=== PATIENT | female | born 1935 | race Caucasian/White ===

== ENCOUNTER 2017-02-06 19:27 | Inpatient (IN) | payer MEDICARE, OTHER ==
[~2017-02-06] VITALS: Ht 154.9 cm; Wt 81.4 kg
[~2017-02-06 19:27] MED LIST: ASPI81TA52 PO; ATOR20TA66 PO; CHOL2000 PO; CLON-529 PO; CLOP75TA35 PO; DET2LAC PO; FERR1TAB9 PO; FLO44IN IH; HYDR12.522 PO; INSU100C4 SQ; LANTUS SQ; LISI-600 PO; LOP25T PO; ONDA4TAB6 PO; POTA20TA19 PO; POTA20TA84 PO; SUCR1ORA2 PO; TIOT18CA7 IH
[2017-02-06 20:23] LABS: BASOPHILS % (AUTO) 0.2 % (0-1); EOSINOPHILS # (AUTO) 0.3 X10'3 (0-0.9); EOSINOPHILS % (AUTO) 3.3 % (0-6); HEMATOCRIT 40.5 % (35.0-45.0); HEMOGLOBIN 13.4 g/dl (12.0-16.0); LYMPHOCYTES # (AUTO) 2.2 X10'3 (1.1-4.8); LYMPHOCYTES % (AUTO) 21.4 % (21-51); MEAN CORPUSCULAR HEMOGLOBIN 28.3 PG (27.0-31.0); MEAN CORPUSCULAR VOLUME 85.7 FL (78-98); MEAN PLATELET VOLUME 8.6 FL (7.4-10.4); MONOCYTES # (AUTO) 0.9 X10'3 (0-0.9); MONOCYTES % (AUTO) 8.4 % (2-12); NEUTROPHILS # (AUTO) 6.8 X10'3 (1.8-7.7); NEUTROPHILS % (AUTO) 66.7 % (42-75); PLATELET COUNT 248 X10'3 (140-440); RED BLOOD COUNT 4.73 X10'6 (4.20-5.60); RED CELL DISTRIBUTION WIDTH 14.4 % (11.5-14.5); WHITE BLOOD COUNT 10.2 X10'3 (4.5-11.0)
[2017-02-06 20:33] LABS: PROTHROMBIN TIME 10.6 SECONDS (9.0-12.0)
[2017-02-06 20:43] LABS: ALANINE AMINOTRANSFERASE 37 U/L (12-78); ALBUMIN 4.1 G/DL (3.4-5.0); ALBUMIN/GLOBULIN RATIO 0.9 (1.1-1.5); ALKALINE PHOSPHATASE 79 IU/L (46-116); AMYLASE 61 U/L (25-115); ANION GAP 9 (8-16); ASPARTATE AMINO TRANSFERASE 28 U/L (10-37); BILIRUBIN,TOTAL 0.5 MG/DL (0.1-1.0); BLOOD UREA NITROGEN 21 MG/DL (7-18); BUN/CREATININE RATIO 24.1 (6.6-38.0); CHLORIDE 103 MMOL/L (99-107); CREATININE 0.87 MG/DL (0.40-0.90); GLUCOSE 139 MG/DL (70-104); LIPASE 101 U/L (73-393); SODIUM 142 MMOL/L (135-145); TOTAL CARBON DIOXIDE 29.9 MMOL/L (24-32); TOTAL PROTEIN 8.6 G/DL (6.4-8.2); eGFR 62 ML/MIN
[2017-02-06] MEDS ORDERED: ondansetron/PF 4mg/2ml inj IV ONE (20:45)
[2017-02-06] MEDS ORDERED: normal saline 1000ML IV soln IVB ONE (20:45)
[2017-02-06] MEDS ORDERED: temazepam 15mg capsule PO PRN (21:00)
[2017-02-06 22:41] LABS: CLARITY,URINE Clear (Clear); COLOR,URINE Yellow (Yellow); GLUCOSE, URINE Negative (Neg); KETONES,URINE Negative (Neg); LEUKOCYTE ESTERASE ,URINE Negative (Neg); NITRITES, URINE Negative (Neg); OCCULT BLOOD,URINE Negative (Neg); PH,URINE 5.5 (4.8-8.0); PROTEIN,URINE Negative (Neg); UROBILINOGEN,URINE 0.2 E.U/dL (0.2-1.0)
[2017-02-06 22:42] LABS: UA COLLECTION TYPE CLN CATCH MIDSTREAM
[2017-02-06] MEDS ORDERED: diphenhydrAMINE 50 mg/ml inj IV PRN (23:15)
[2017-02-06] MEDS ORDERED: mag hydrox/Alum hydrox/simeth 30ml oral suspension PO PRN (23:15)
[2017-02-06] MEDS ORDERED: acetaminophen 325mg tablet PO PRN (23:15)
[2017-02-06] MEDS ORDERED: magnesium hydroxide 30ml (MOM) UD suspension PO PRN (23:15)
[2017-02-06] MEDS ORDERED: bisacodyl 10mg suppository rectal RC PRN (23:15)
[2017-02-06] MEDS ORDERED: acetaminophen 650mg rectal suppository RC PRN (23:15)
[2017-02-06] MEDS ORDERED: ondansetron/PF 4mg/2ml inj IV PRN (23:15)
[2017-02-06] MEDS ORDERED: metoclopramide 5 mg/ml inj IV PRN (23:15)
[2017-02-06] MEDS ORDERED: diphenhydrAMINE 25mg capsule PO PRN (23:15)
[2017-02-06] MEDS ORDERED: heparin 10,000 units/1 ML INJ IV ONE (23:15)
[2017-02-06] MEDS ORDERED: HYDROmorphone 1 mg/ml syringe IV PRN ×2 (23:15)
[2017-02-06 23:56] LABS: PARTIAL THROMBOPLASTIN TIME 29 SECONDS (22-32)
[2017-02-07] LABS: BASOPHILS % (AUTO) 0.3 % (0-1); EOSINOPHILS # (AUTO) 0.3 X10'3 (0-0.9); EOSINOPHILS % (AUTO) 3.6 % (0-6); HEMATOCRIT 38.6 % (35.0-45.0); HEMOGLOBIN 12.7 g/dl (12.0-16.0); LYMPHOCYTES # (AUTO) 1.3 X10'3 (1.1-4.8); LYMPHOCYTES % (AUTO) 13.9 % (21-51); MEAN CORPUSCULAR HEMOGLOBIN 28.1 PG (27.0-31.0); MEAN CORPUSCULAR HGB CONC 32.9 % (33.0-36.5); MEAN CORPUSCULAR VOLUME 85.6 FL (78-98); MEAN PLATELET VOLUME 8.6 FL (7.4-10.4); MONOCYTES # (AUTO) 0.9 X10'3 (0-0.9); MONOCYTES % (AUTO) 9.2 % (2-12); NEUTROPHILS # (AUTO) 6.9 X10'3 (1.8-7.7); PLATELET COUNT 227 X10'3 (140-440); RED BLOOD COUNT 4.51 X10'6 (4.20-5.60); RED CELL DISTRIBUTION WIDTH 14.1 % (11.5-14.5); WHITE BLOOD COUNT 9.5 X10'3 (4.5-11.0)
[2017-02-07 00:09] LABS: MAGNESIUM 1.8 MG/DL (1.5-2.4)
[2017-02-07] MEDS: pantoprazole 40 MG vial IV SCH ×2 (00:12→08:09)
[2017-02-07] MEDS: normal saline 1000ml 1,000 ML IV SCH ×4 (00:14→23:38)
[2017-02-07] MEDS: piperacillin/tazo 4.5gm/100ml 100 ML IV SCH ×2 (01:02→11:34)
[2017-02-07 01:30] VITALS: BP 164/70
[2017-02-07] MEDS: vancomycin/NS 1 GM ADD-VANTAGE 250 ML IV SCH ×2 (02:17→13:00)
[2017-02-07] MEDS ORDERED: MESSAGE TO PHARMACY PO ONE (02:45)
[2017-02-07] MEDS ORDERED: glucagon, human recombinant 1mg kit SUBCUT PRN (02:45)
[2017-02-07] MEDS ORDERED: dextrose ORAL solution 15 GM/59 ML bottle PO PRN ×2 (02:45)
[2017-02-07] MEDS ORDERED: insulin Lispro (HumaLOG) vial - multi-dose SQ SCH (02:45)
[2017-02-07] MEDS ORDERED: dextrose 50%-water 50ml dispensing syringe IV PRN ×2 (02:45)
[2017-02-07 06:08] LABS: BASOPHILS % (AUTO) 0.2 % (0-1); EOSINOPHILS # (AUTO) 0.3 X10'3 (0-0.9); EOSINOPHILS % (AUTO) 2.9 % (0-6); HEMOGLOBIN 12.6 g/dl (12.0-16.0); LYMPHOCYTES # (AUTO) 0.8 X10'3 (1.1-4.8); LYMPHOCYTES % (AUTO) 7.8 % (21-51); MEAN CORPUSCULAR HEMOGLOBIN 28.2 PG (27.0-31.0); MEAN CORPUSCULAR HGB CONC 32.3 % (33.0-36.5); MEAN CORPUSCULAR VOLUME 87.2 FL (78-98); MEAN PLATELET VOLUME 9.1 FL (7.4-10.4); MONOCYTES # (AUTO) 0.9 X10'3 (0-0.9); MONOCYTES % (AUTO) 8.8 % (2-12); NEUTROPHILS # (AUTO) 8.1 X10'3 (1.8-7.7); NEUTROPHILS % (AUTO) 80.3 % (42-75); PLATELET COUNT 210 X10'3 (140-440); RED BLOOD COUNT 4.47 X10'6 (4.20-5.60); RED CELL DISTRIBUTION WIDTH 14.2 % (11.5-14.5); WHITE BLOOD COUNT 10.1 X10'3 (4.5-11.0)
[2017-02-07 06:39] LABS: ANION GAP 9 (8-16); BLOOD UREA NITROGEN 14 MG/DL (7-18); CHLORIDE 106 MMOL/L (99-107); CREATININE 0.73 MG/DL (0.40-0.90); GLUCOSE 167 MG/DL (70-104); POTASSIUM 3.7 MMOL/L (3.5-5.1); SODIUM 143 MMOL/L (135-145)
[2017-02-07 06:40] LABS: ALANINE AMINOTRANSFERASE 34 U/L (12-78); ALBUMIN 3.3 G/DL (3.4-5.0); ALBUMIN/GLOBULIN RATIO 0.8 (1.1-1.5); ALKALINE PHOSPHATASE 68 IU/L (46-116); ASPARTATE AMINO TRANSFERASE 24 U/L (10-37); BILIRUBIN,TOTAL 0.7 MG/DL (0.1-1.0); BUN/CREATININE RATIO 19.2 (6.6-38.0); CALCIUM 8.9 MG/DL (8.5-10.1); TOTAL PROTEIN 7.2 G/DL (6.4-8.2); eGFR 77 ML/MIN
[2017-02-07 07:20] VITALS: BP 166/74
[2017-02-07] MEDS: docusate sod 100mg capsule PO SCH ×2 (08:00→21:17)
[2017-02-07] MEDS ORDERED: lisinopril 20mg tablet PO SCH (08:00)
[2017-02-07] MEDS: heparin 10,000 units/1 ML INJ IV PRN (08:15)
[2017-02-07] MEDS: metoprolol tartrate 25mg tablet PO SCH ×2 (10:11→21:16)
[2017-02-07] MEDS: oxybutynin 5mg tablet PO SCH ×4 (10:11→21:17)
[2017-02-07] MEDS: cloNIDine 0.1 mg tablet PO SCH ×2 (10:11→21:16)
[2017-02-07] MEDS: atorvastatin 20mg tablet PO SCH (10:11)
[2017-02-07] MEDS: HYDROcodone/acetaminophen 5mg/325mg tablet PO PRN (11:31)
[2017-02-07 11:45] VITALS: BP 166/80
[2017-02-07] MEDS: lactobacillus rhamnosus 10,000 MMU CELLS/CAPSULE PO SCH (16:59)
[2017-02-07 18:00] VITALS: BP 170/74
[2017-02-07] MEDS: diatr meglu/diatrizoate 30ml oral sol.-(3 dose) bottle PO SCH (21:17)
[2017-02-08] VITALS: BP 139/67
[2017-02-08 00:41] LABS: BASOPHILS % (AUTO) 0.3 % (0-1); EOSINOPHILS # (AUTO) 0.2 X10'3 (0-0.9); EOSINOPHILS % (AUTO) 2.5 % (0-6); HEMATOCRIT 36.8 % (35.0-45.0); HEMOGLOBIN 12.1 g/dl (12.0-16.0); LYMPHOCYTES # (AUTO) 0.9 X10'3 (1.1-4.8); LYMPHOCYTES % (AUTO) 10.9 % (21-51); MEAN CORPUSCULAR HEMOGLOBIN 28.4 PG (27.0-31.0); MEAN CORPUSCULAR HGB CONC 32.9 % (33.0-36.5); MEAN CORPUSCULAR VOLUME 86.2 FL (78-98); MEAN PLATELET VOLUME 8.7 FL (7.4-10.4); MONOCYTES # (AUTO) 0.6 X10'3 (0-0.9); MONOCYTES % (AUTO) 8.2 % (2-12); NEUTROPHILS # (AUTO) 6.2 X10'3 (1.8-7.7); NEUTROPHILS % (AUTO) 78.1 % (42-75); PLATELET COUNT 182 X10'3 (140-440); RED BLOOD COUNT 4.28 X10'6 (4.20-5.60); RED CELL DISTRIBUTION WIDTH 13.9 % (11.5-14.5); WHITE BLOOD COUNT 7.9 X10'3 (4.5-11.0)
[2017-02-08] MEDS: piperacillin/tazo 4.5gm/100ml 100 ML IV SCH ×2 (00:43→12:27)
[2017-02-08 00:57] LABS: ALANINE AMINOTRANSFERASE 24 U/L (12-78); ALBUMIN 2.9 G/DL (3.4-5.0); ALBUMIN/GLOBULIN RATIO 0.8 (1.1-1.5); ALKALINE PHOSPHATASE 57 IU/L (46-116); ANION GAP 8 (8-16); ASPARTATE AMINO TRANSFERASE 19 U/L (10-37); BILIRUBIN,TOTAL 0.5 MG/DL (0.1-1.0); BLOOD UREA NITROGEN 7 MG/DL (7-18); BUN/CREATININE RATIO 11.5 (6.6-38.0); CALCIUM 8.2 MG/DL (8.5-10.1); CHLORIDE 105 MMOL/L (99-107); CREATININE 0.61 MG/DL (0.40-0.90); GLUCOSE 139 MG/DL (70-104); POTASSIUM 3.1 MMOL/L (3.5-5.1); SODIUM 141 MMOL/L (135-145); TOTAL CARBON DIOXIDE 28.3 MMOL/L (24-32); TOTAL PROTEIN 6.7 G/DL (6.4-8.2); VANCOMYCIN,TROUGH 8.3 UG/ML (6.0-14.0); eGFR > 90 ML/MIN
[2017-02-08] MEDS: vancomycin/NS 1 GM ADD-VANTAGE 250 ML IV SCH ×2 (01:56→13:46)
[2017-02-08] MEDS ORDERED: potassium Cl 20 mEq SR tablet PO PRN (06:25)
[2017-02-08] MEDS ORDERED: potassium Cl 40MEQ/NS 500ml 500 ML IV PRN ×2 (06:25)
[2017-02-08 07:21] VITALS: BP 155/77
[2017-02-08] MEDS: lactobacillus rhamnosus 10,000 MMU CELLS/CAPSULE PO SCH ×2 (07:41→16:40)
[2017-02-08] MEDS: pantoprazole 40 MG vial IV SCH (07:41)
[2017-02-08] MEDS: metoprolol tartrate 25mg tablet PO SCH ×2 (07:41→20:33)
[2017-02-08] MEDS: atorvastatin 20mg tablet PO SCH (07:41)
[2017-02-08] MEDS: diatr meglu/diatrizoate 30ml oral sol.-(3 dose) bottle PO SCH ×2 (07:41→10:38)
[2017-02-08] MEDS: docusate sod 100mg capsule PO SCH ×2 (07:41→20:33)
[2017-02-08] MEDS: oxybutynin 5mg tablet PO SCH ×4 (07:41→20:33)
[2017-02-08] MEDS: cloNIDine 0.1 mg tablet PO SCH ×2 (07:41→20:33)
[2017-02-08] MEDS: lisinopril 10 MG tablet PO SCH (07:42)
[2017-02-08 11:50] VITALS: BP 153/84
[2017-02-08] MEDS ORDERED: VANCOMYCIN LEVEL IV ONE (12:30)
[2017-02-08] MEDS: HYDROcodone/acetaminophen 5mg/325mg tablet PO PRN (12:31)
[2017-02-08] MEDS: heparin 10,000 units/1 ML INJ IV PRN (14:35)
[2017-02-08] MEDS: normal saline 1000ml 1,000 ML IV SCH (14:36)
[2017-02-08 19:00] VITALS: BP 142/74
[2017-02-09] VITALS: BP 141/70
[2017-02-09] MEDS: vancomycin inj 1,250 MG in normal saline 250ml IV soln 250 ML IV SCH ×2 (01:12→14:17)
[2017-02-09] MEDS: normal saline 1000ml 1,000 ML IV SCH ×3 (01:15→20:00)
[2017-02-09 05:19] LABS: BASOPHILS % (AUTO) 0.2 % (0-1); EOSINOPHILS # (AUTO) 0.3 X10'3 (0-0.9); EOSINOPHILS % (AUTO) 3.9 % (0-6); HEMATOCRIT 35.9 % (35.0-45.0); HEMOGLOBIN 11.8 g/dl (12.0-16.0); LYMPHOCYTES # (AUTO) 1.2 X10'3 (1.1-4.8); LYMPHOCYTES % (AUTO) 14.5 % (21-51); MEAN CORPUSCULAR HEMOGLOBIN 28.3 PG (27.0-31.0); MEAN CORPUSCULAR HGB CONC 32.9 % (33.0-36.5); MEAN CORPUSCULAR VOLUME 86.2 FL (78-98); MEAN PLATELET VOLUME 8.4 FL (7.4-10.4); MONOCYTES # (AUTO) 0.8 X10'3 (0-0.9); MONOCYTES % (AUTO) 9.4 % (2-12); NEUTROPHILS # (AUTO) 5.7 X10'3 (1.8-7.7); PLATELET COUNT 170 X10'3 (140-440); RED BLOOD COUNT 4.17 X10'6 (4.20-5.60); RED CELL DISTRIBUTION WIDTH 13.7 % (11.5-14.5)
[2017-02-09 05:49] LABS: ALANINE AMINOTRANSFERASE 21 U/L (12-78); ALBUMIN 2.8 G/DL (3.4-5.0); ALBUMIN/GLOBULIN RATIO 0.7 (1.1-1.5); ALKALINE PHOSPHATASE 60 IU/L (46-116); ANION GAP 6 (8-16); ASPARTATE AMINO TRANSFERASE 17 U/L (10-37); BILIRUBIN,TOTAL 0.5 MG/DL (0.1-1.0); BLOOD UREA NITROGEN 6 MG/DL (7-18); BUN/CREATININE RATIO 8.5 (6.6-38.0); CALCIUM 8.4 MG/DL (8.5-10.1); CHLORIDE 105 MMOL/L (99-107); CREATININE 0.71 MG/DL (0.40-0.90); GLUCOSE 132 MG/DL (70-104); MAGNESIUM 1.4 MG/DL (1.5-2.4); POTASSIUM 3.5 MMOL/L (3.5-5.1); SODIUM 142 MMOL/L (135-145); TOTAL CARBON DIOXIDE 31.3 MMOL/L (24-32); TOTAL PROTEIN 6.8 G/DL (6.4-8.2); eGFR 79 ML/MIN
[2017-02-09 07:00] VITALS: BP 166/72
[2017-02-09] MEDS: lactobacillus rhamnosus 10,000 MMU CELLS/CAPSULE PO SCH ×2 (07:39→18:44)
[2017-02-09] MEDS: atorvastatin 20mg tablet PO SCH (07:40)
[2017-02-09] MEDS: cloNIDine 0.1 mg tablet PO SCH ×2 (07:40→20:03)
[2017-02-09] MEDS: docusate sod 100mg capsule PO SCH ×2 (07:40→20:03)
[2017-02-09] MEDS: metoprolol tartrate 25mg tablet PO SCH ×2 (07:40→20:03)
[2017-02-09] MEDS: pantoprazole 40 MG vial IV SCH (07:40)
[2017-02-09] MEDS: lisinopril 10 MG tablet PO SCH (07:41)
[2017-02-09] MEDS: oxybutynin 5mg tablet PO SCH ×4 (07:41→20:00)
[2017-02-09] MEDS: HYDROcodone/acetaminophen 10/325mg tab PO PRN ×3 (07:45→23:33)
[2017-02-09 11:00] VITALS: BP 154/80
[2017-02-09] MEDS: piperacillin/tazo 4.5gm/100ml 100 ML IV SCH ×3 (12:14→23:37)
[2017-02-09] MEDS: amLODIPine 5mg tablet PO SCH (14:17)
[2017-02-09] MEDS: heparin 10,000 units/1 ML INJ IV PRN (19:40)
[2017-02-09 20:00] VITALS: BP 166/75
[2017-02-10] VITALS: BP 161/81
[2017-02-10] MEDS: vancomycin inj 1,250 MG in normal saline 250ml IV soln 250 ML IV SCH (01:05)
[2017-02-10] MEDS: normal saline 1000ml 1,000 ML IV SCH (04:33)
[2017-02-10] MEDS: lactobacillus rhamnosus 10,000 MMU CELLS/CAPSULE PO SCH ×2 (07:04→16:54)
[2017-02-10] MEDS: pantoprazole 40 MG vial IV SCH (07:04)
[2017-02-10] MEDS: cloNIDine 0.1 mg tablet PO SCH ×2 (07:04→19:55)
[2017-02-10] MEDS: oxybutynin 5mg tablet PO SCH ×4 (07:05→19:42)
[2017-02-10] MEDS: docusate sod 100mg capsule PO SCH ×2 (07:05→19:55)
[2017-02-10] MEDS: amLODIPine 5mg tablet PO SCH (07:05)
[2017-02-10] MEDS: atorvastatin 20mg tablet PO SCH (07:05)
[2017-02-10] MEDS: metoprolol tartrate 25mg tablet PO SCH ×2 (07:05→19:55)
[2017-02-10] MEDS: lisinopril 10 MG tablet PO SCH (07:07)
[2017-02-10 07:57] VITALS: BP 178/87
[2017-02-10 08:09] LABS: ALANINE AMINOTRANSFERASE 27 U/L (12-78); ALBUMIN/GLOBULIN RATIO 0.7 (1.1-1.5); ALKALINE PHOSPHATASE 71 IU/L (46-116); ANION GAP 10 (8-16); ASPARTATE AMINO TRANSFERASE 22 U/L (10-37); BILIRUBIN,TOTAL 0.5 MG/DL (0.1-1.0); BLOOD UREA NITROGEN 4 MG/DL (7-18); BUN/CREATININE RATIO 5.9 (6.6-38.0); CALCIUM 8.9 MG/DL (8.5-10.1); CHLORIDE 104 MMOL/L (99-107); CREATININE 0.68 MG/DL (0.40-0.90); GLUCOSE 112 MG/DL (70-104); MAGNESIUM 1.5 MG/DL (1.5-2.4); POTASSIUM 3.1 MMOL/L (3.5-5.1); SODIUM 144 MMOL/L (135-145); TOTAL CARBON DIOXIDE 29.7 MMOL/L (24-32); TOTAL PROTEIN 7.5 G/DL (6.4-8.2); eGFR 83 ML/MIN
[2017-02-10 08:29] LABS: BASOPHILS % (AUTO) 0.4 % (0-1); EOSINOPHILS # (AUTO) 0.5 X10'3 (0-0.9); EOSINOPHILS % (AUTO) 6.6 % (0-6); HEMATOCRIT 37.6 % (35.0-45.0); HEMOGLOBIN 12.4 g/dl (12.0-16.0); LYMPHOCYTES % (AUTO) 14.9 % (21-51); MEAN CORPUSCULAR HEMOGLOBIN 28.5 PG (27.0-31.0); MEAN CORPUSCULAR HGB CONC 32.9 % (33.0-36.5); MEAN CORPUSCULAR VOLUME 86.8 FL (78-98); MEAN PLATELET VOLUME 9.6 FL (7.4-10.4); MONOCYTES # (AUTO) 0.7 X10'3 (0-0.9); MONOCYTES % (AUTO) 10.6 % (2-12); NEUTROPHILS # (AUTO) 4.7 X10'3 (1.8-7.7); NEUTROPHILS % (AUTO) 67.5 % (42-75); PLATELET COUNT 171 X10'3 (140-440); RED BLOOD COUNT 4.34 X10'6 (4.20-5.60); RED CELL DISTRIBUTION WIDTH 13.9 % (11.5-14.5)
[2017-02-10] MEDS: clopidogrel 75mg tablet PO SCH (08:59)
[2017-02-10] MEDS: aspirin 81mg tab.chew PO SCH (08:59)
[2017-02-10 11:12] VITALS: BP 155/68
[2017-02-10] MEDS ORDERED: VANCOMYCIN LEVEL IV ONE (12:30)
[2017-02-10] MEDS: potassium Cl 20 mEq SR tablet PO PRN ×2 (16:55→21:37)
[2017-02-10] MEDS: mineral oil/petrolatum, white cream 113gm jar TP SCH (19:55)
[2017-02-10 20:00] VITALS: BP 161/82
[2017-02-11] VITALS: BP 165/73
[2017-02-11] MEDS: potassium Cl 20 mEq SR tablet PO PRN (03:49)
[2017-02-11 05:30] LABS: BASOPHILS % (AUTO) 0.4 % (0-1); EOSINOPHILS # (AUTO) 0.2 X10'3 (0-0.9); EOSINOPHILS % (AUTO) 3.4 % (0-6); HEMATOCRIT 33.2 % (35.0-45.0); HEMOGLOBIN 10.8 g/dl (12.0-16.0); LYMPHOCYTES # (AUTO) 0.7 X10'3 (1.1-4.8); LYMPHOCYTES % (AUTO) 13.3 % (21-51); MEAN CORPUSCULAR HGB CONC 32.5 % (33.0-36.5); MEAN CORPUSCULAR VOLUME 86.2 FL (78-98); MONOCYTES # (AUTO) 0.7 X10'3 (0-0.9); MONOCYTES % (AUTO) 14.8 % (2-12); NEUTROPHILS # (AUTO) 3.4 X10'3 (1.8-7.7); NEUTROPHILS % (AUTO) 68.1 % (42-75); PLATELET COUNT 167 X10'3 (140-440); RED BLOOD COUNT 3.86 X10'6 (4.20-5.60); RED CELL DISTRIBUTION WIDTH 13.6 % (11.5-14.5); WHITE BLOOD COUNT 5.1 X10'3 (4.5-11.0)
[2017-02-11 05:57] LABS: ALANINE AMINOTRANSFERASE 27 U/L (12-78); ALBUMIN 2.6 G/DL (3.4-5.0); ALBUMIN/GLOBULIN RATIO 0.7 (1.1-1.5); ALKALINE PHOSPHATASE 62 IU/L (46-116); ANION GAP 8 (8-16); ASPARTATE AMINO TRANSFERASE 20 U/L (10-37); BILIRUBIN,TOTAL 0.3 MG/DL (0.1-1.0); BLOOD UREA NITROGEN 7 MG/DL (7-18); CALCIUM 8.7 MG/DL (8.5-10.1); CHLORIDE 108 MMOL/L (99-107); CREATININE 1.17 MG/DL (0.40-0.90); GLUCOSE 144 MG/DL (70-104); MAGNESIUM 1.4 MG/DL (1.5-2.4); POTASSIUM 3.4 MMOL/L (3.5-5.1); SODIUM 145 MMOL/L (135-145); TOTAL CARBON DIOXIDE 29.5 MMOL/L (24-32); TOTAL PROTEIN 6.5 G/DL (6.4-8.2); eGFR 44 ML/MIN
[2017-02-11 07:00] VITALS: BP 158/66
[2017-02-11] MEDS: docusate sod 100mg capsule PO SCH ×2 (08:00→20:00)
[2017-02-11] MEDS: atorvastatin 20mg tablet PO SCH (08:28)
[2017-02-11] MEDS: lisinopril 10 MG tablet PO SCH (08:28)
[2017-02-11] MEDS: pantoprazole 40 MG vial IV SCH (08:28)
[2017-02-11] MEDS: cloNIDine 0.1 mg tablet PO SCH ×2 (08:28→20:00)
[2017-02-11] MEDS: oxybutynin 5mg tablet PO SCH ×3 (08:28→21:37)
[2017-02-11] MEDS: aspirin 81mg tab.chew PO SCH (08:28)
[2017-02-11] MEDS: amLODIPine 5mg tablet PO SCH (08:28)
[2017-02-11] MEDS: clopidogrel 75mg tablet PO SCH (08:28)
[2017-02-11] MEDS: lactobacillus rhamnosus 10,000 MMU CELLS/CAPSULE PO SCH ×2 (08:28→17:35)
[2017-02-11] MEDS: metoprolol tartrate 25mg tablet PO SCH ×2 (08:28→20:00)
[2017-02-11 11:00] VITALS: BP 127/65
[2017-02-11] MEDS: ipratropium/albuterol 3ml nebule NEB PRN (12:07)
[2017-02-11] MEDS: LACTOSE-FREE FOOD 237ML (BOOST) PO SCH ×2 (13:00→18:00)
[2017-02-11] MEDS: mineral oil/petrolatum, white cream 113gm jar TP SCH ×2 (17:36→21:37)
[2017-02-11 20:00] VITALS: BP 119/70
[2017-02-12] VITALS: BP 152/71
[2017-02-12 06:00] VITALS: BP 164/83
[2017-02-12 06:24] LABS: MAGNESIUM 1.4 MG/DL (1.5-2.4); POTASSIUM 3.2 MMOL/L (3.5-5.1)
[2017-02-12] MEDS: lactobacillus rhamnosus 10,000 MMU CELLS/CAPSULE PO SCH (07:30)
[2017-02-12] MEDS: LACTOSE-FREE FOOD 237ML (BOOST) PO SCH ×2 (08:00→12:16)
[2017-02-12] MEDS: clopidogrel 75mg tablet PO SCH (08:51)
[2017-02-12] MEDS: pantoprazole 40 MG vial IV SCH (08:51)
[2017-02-12] MEDS: metoprolol tartrate 25mg tablet PO SCH (08:51)
[2017-02-12] MEDS: atorvastatin 20mg tablet PO SCH (08:51)
[2017-02-12] MEDS: aspirin 81mg tab.chew PO SCH (08:51)
[2017-02-12] MEDS: docusate sod 100mg capsule PO SCH (08:51)
[2017-02-12] MEDS: oxybutynin 5mg tablet PO SCH ×2 (08:52→13:20)
[2017-02-12] MEDS: lisinopril 10 MG tablet PO SCH (08:52)
[2017-02-12] MEDS: cloNIDine 0.1 mg tablet PO SCH (08:52)
[2017-02-12] MEDS: amLODIPine 5mg tablet PO SCH (08:52)
[2017-02-12] MEDS: mineral oil/petrolatum, white cream 113gm jar TP SCH (08:57)
[2017-02-12] MEDS: ipratropium/albuterol 3ml nebule NEB PRN (09:14)
[2017-02-12 11:00] VITALS: BP 131/67
== END 2017-02-12 16:34 | disposition home health service (06) | DRG 389 ==
LOC: ER 19:28 → ED HOLD 23:15 → SUR 3N 02-07 01:25
PROVIDERS: ADMIT Family Medicine; ATTEND Internal Medicine
PROC: BW211ZZ Computerized Tomography (CT Scan) of Abdomen and Pelvis using Low Osmolar Contrast (ICD-10-PCS; principal; 2017-02-08)
DX: K56.609 Unspecified intestinal obstruction, unspecified as to partial versus complete obstruction (principal); L03.116 Cellulitis of left lower limb; I48.91 Unspecified atrial fibrillation; E11.621 Type 2 diabetes mellitus with foot ulcer; L03.115 Cellulitis of right lower limb; N28.1 Cyst of kidney, acquired; F02.80 Dementia in other diseases classified elsewhere, unspecified severity, without behavioral disturbance, psychotic disturbance, mood disturbance, and anxiety; J44.9 Chronic obstructive pulmonary disease, unspecified; I10 Essential (primary) hypertension; G89.29 Other chronic pain; G30.9 Alzheimer's disease, unspecified; L97.529 Non-pressure chronic ulcer of other part of left foot with unspecified severity; E78.5 Hyperlipidemia, unspecified; M71.20 Synovial cyst of popliteal space [Baker], unspecified knee; M19.90 Unspecified osteoarthritis, unspecified site; G47.30 Sleep apnea, unspecified; K21.9 Gastro-esophageal reflux disease without esophagitis; Z93.3 Colostomy status; Z90.49 Acquired absence of other specified parts of digestive tract; Z90.710 Acquired absence of both cervix and uterus; Z88.2 Allergy status to sulfonamides; Z88.8 Allergy status to other drugs, medicaments and biological substances; Z79.899 Other long term (current) drug therapy; Z79.82 Long term (current) use of aspirin; Z79.4 Long term (current) use of insulin; Z85.038 Personal history of other malignant neoplasm of large intestine; Z86.14 Personal history of Methicillin resistant Staphylococcus aureus infection; Z86.73 Personal history of transient ischemic attack (TIA), and cerebral infarction without residual deficits; Z87.891 Personal history of nicotine dependence
CPT/HCPCS: 36415; 74176; 80053; 80202; 81003; 82150; 82948; 83036; 83690; 83735; 83880; 84132; 85025; 85610; 85730; 87070; 93005; 93971; 94640; 94760; 96361; 96374; 97116; 97161; 99285; A4421; C9113; J1644; J2270; J2405; J2543; J3370; J3480; J7030; Q9963

== ENCOUNTER 2017-02-25 12:36 | Emergency (ER) | payer MEDICARE, OTHER ==
[~2017-02-25] VITALS: Ht 154.9 cm; Wt 79.1 kg
[~2017-02-25 12:36] MED LIST changes: -POTA20TA19 PO
[2017-02-25] MEDS ORDERED: DOCU-28 PO (15:51)
[2017-02-25 16:06] VITALS: BP 156/76
== END 2017-02-25 16:08 | disposition home or self-care (01) ==
LOC: ER 12:39
DX: K59.00 Constipation, unspecified (principal); I10 Essential (primary) hypertension; J44.9 Chronic obstructive pulmonary disease, unspecified; K21.9 Gastro-esophageal reflux disease without esophagitis; E11.9 Type 2 diabetes mellitus without complications; G89.29 Other chronic pain; Z88.2 Allergy status to sulfonamides; Z88.1 Allergy status to other antibiotic agents; Z90.49 Acquired absence of other specified parts of digestive tract; Z90.710 Acquired absence of both cervix and uterus; Z88.8 Allergy status to other drugs, medicaments and biological substances
CPT/HCPCS: 74022; 74176; 99284

== ENCOUNTER 2017-04-30 06:56 | Emergency (ER) | payer MEDICARE, OTHER ==
[~2017-04-30] VITALS: Ht 154.9 cm; Wt 76.8 kg
[~2017-04-30 06:56] MED LIST changes: +DOCU-28 PO
[2017-04-30] MEDS ORDERED: albuterol 2.5 MG/3 ML nebule NEB ONE (07:05)
[2017-04-30 07:43] LABS: BASOPHILS % (AUTO) 0.3 % (0-1); EOSINOPHILS # (AUTO) 0.3 X10'3 (0-0.9); EOSINOPHILS % (AUTO) 7.6 % (0-6); HEMATOCRIT 32.8 % (35.0-45.0); HEMOGLOBIN 10.7 g/dl (12.0-16.0); LYMPHOCYTES # (AUTO) 1.2 X10'3 (1.1-4.8); LYMPHOCYTES % (AUTO) 25.4 % (21-51); MEAN CORPUSCULAR HEMOGLOBIN 26.4 PG (27.0-31.0); MEAN CORPUSCULAR HGB CONC 32.5 % (33.0-36.5); MEAN CORPUSCULAR VOLUME 81.2 FL (78-98); MEAN PLATELET VOLUME 7.9 FL (7.4-10.4); MONOCYTES # (AUTO) 0.3 X10'3 (0-0.9); MONOCYTES % (AUTO) 7.5 % (2-12); NEUTROPHILS # (AUTO) 2.7 X10'3 (1.8-7.7); NEUTROPHILS % (AUTO) 59.2 % (42-75); PLATELET COUNT 216 X10'3 (140-440); RED BLOOD COUNT 4.04 X10'6 (4.20-5.60); RED CELL DISTRIBUTION WIDTH 15.4 % (11.5-14.5); WHITE BLOOD COUNT 4.6 X10'3 (4.5-11.0)
[2017-04-30 07:44] LABS: PARTIAL THROMBOPLASTIN TIME 28 SECONDS (22-32); PROTHROMBIN TIME 10.3 SECONDS (9.0-12.0)
[2017-04-30 07:56] LABS: ALANINE AMINOTRANSFERASE 33 U/L (12-78); ALBUMIN 3.6 G/DL (3.4-5.0); ALBUMIN/GLOBULIN RATIO 0.9 (1.1-1.5); ALKALINE PHOSPHATASE 87 IU/L (46-116); ANION GAP 10 (8-16); ASPARTATE AMINO TRANSFERASE 21 U/L (10-37); BILIRUBIN,TOTAL 0.4 MG/DL (0.1-1.0); BLOOD UREA NITROGEN 19 MG/DL (7-18); BUN/CREATININE RATIO 26.4 (6.6-38.0); CALCIUM 8.9 MG/DL (8.5-10.1); CHLORIDE 106 MMOL/L (99-107); CREATININE 0.72 MG/DL (0.40-0.90); GLUCOSE 145 MG/DL (70-104); POTASSIUM 3.5 MMOL/L (3.5-5.1); SODIUM 144 MMOL/L (135-145); TOTAL PROTEIN 7.8 G/DL (6.4-8.2); eGFR 78 ML/MIN
[2017-04-30] MEDS ORDERED: levoFLOXACIN-Levaquin 500mg/D5 100 ML IV ONE (08:30)
[2017-04-30] MEDS ORDERED: methylPREDNISolone sod succ 125mg/2ml vial IV ONE (10:35)
[2017-04-30] MEDS ORDERED: levoFLOXACIN 250mg tablet PO ONE (10:35)
[2017-04-30] MEDS ORDERED: albuterol 2.5 MG/3 ML nebule ONE (10:59)
[2017-04-30] MEDS ORDERED: PRED20TA PO (11:07)
[2017-04-30] MEDS ORDERED: ALB0.5UD IH (11:07)
[2017-04-30] MEDS ORDERED: LEVO500T2 PO (11:07)
[2017-04-30 11:43] VITALS: BP 118/68
== END 2017-04-30 11:45 | disposition home or self-care (01) ==
LOC: ER 06:57
DX: J44.1 Chronic obstructive pulmonary disease with (acute) exacerbation (principal); R06.03 Acute respiratory distress; I10 Essential (primary) hypertension; K21.9 Gastro-esophageal reflux disease without esophagitis; E11.9 Type 2 diabetes mellitus without complications; M19.90 Unspecified osteoarthritis, unspecified site; G89.29 Other chronic pain; Z90.49 Acquired absence of other specified parts of digestive tract; Z90.710 Acquired absence of both cervix and uterus; Z98.890 Other specified postprocedural states; Z86.73 Personal history of transient ischemic attack (TIA), and cerebral infarction without residual deficits; Z85.038 Personal history of other malignant neoplasm of large intestine; Z88.2 Allergy status to sulfonamides; Z88.6 Allergy status to analgesic agent; Z88.8 Allergy status to other drugs, medicaments and biological substances; Z79.899 Other long term (current) drug therapy; Z79.4 Long term (current) use of insulin
CPT/HCPCS: 36415; 71045; 80053; 83880; 84484; 85025; 85610; 85730; 93005; 94640; 94760; 96365; 96375; 99285; J1956; J2930

== ENCOUNTER 2017-07-26 17:21 | Inpatient (IN) | payer MEDICARE, OTHER ==
[~2017-07-26] VITALS: Ht 154.9 cm; Wt 86.0 kg
[2017-07-26] MEDS ORDERED: ipratropium/albuterol 3ml nebule NEB ONE (17:30)
[2017-07-26] MEDS ORDERED: levoFLOXACIN-Levaquin 750MG/D5 150 ML IV ONE (17:30)
[2017-07-26] MEDS ORDERED: methylPREDNISolone sod succ 125mg/2ml vial IV ONE (17:30)
[2017-07-26 17:51] LABS: CLARITY,URINE CLEAR (Clear); COLOR,URINE YELLOW (Yellow); GLUCOSE, URINE NEGATIVE (Neg); KETONES,URINE NEGATIVE (Neg); LEUKOCYTE ESTERASE ,URINE SMALL (Neg); NITRITES, URINE NEGATIVE (Neg); OCCULT BLOOD,URINE NEGATIVE (Neg); PROTEIN,URINE NEGATIVE (Neg); UROBILINOGEN,URINE 0.2 E.U/dL (0.2-1.0)
[2017-07-26] MEDS: magnesium/D5W IVPB 100 ML IV SCH ×2 (17:52→19:00)
[2017-07-26 17:57] LABS: UA COLLECTION TYPE CLN CATCH MIDSTREAM
[2017-07-26 17:58] LABS: BACTERIA,URINE NONE SEEN /HPF (Neg); MUCUS STRANDS FEW /LPF (Neg); RBC,URINE NONE SEEN /HPF (0-2); SQUAMOUS EPITHELIAL CELL,UR MODERATE /LPF (FEW); WBC,URINE 0-4 /HPF (0-4)
[2017-07-26 18:11] LABS: BASOPHILS % (AUTO) 0.4 % (0-1); EOSINOPHILS # (AUTO) 0.2 X10'3 (0-0.9); EOSINOPHILS % (AUTO) 3.6 % (0-6); HEMATOCRIT 35.7 % (35.0-45.0); HEMOGLOBIN 11.5 g/dl (12.0-16.0); LYMPHOCYTES # (AUTO) 2.2 X10'3 (1.1-4.8); LYMPHOCYTES % (AUTO) 32.1 % (21-51); MEAN CORPUSCULAR HEMOGLOBIN 24.2 PG (27.0-31.0); MEAN CORPUSCULAR HGB CONC 32.3 % (33.0-36.5); MEAN CORPUSCULAR VOLUME 75.1 FL (78-98); MEAN PLATELET VOLUME 8.2 FL (7.4-10.4); MONOCYTES # (AUTO) 0.6 X10'3 (0-0.9); MONOCYTES % (AUTO) 8.3 % (2-12); NEUTROPHILS # (AUTO) 3.8 X10'3 (1.8-7.7); NEUTROPHILS % (AUTO) 55.6 % (42-75); PLATELET COUNT 249 X10'3 (140-440); RED BLOOD COUNT 4.75 X10'6 (4.20-5.60); RED CELL DISTRIBUTION WIDTH 17.7 % (11.5-14.5); WHITE BLOOD COUNT 6.9 X10'3 (4.5-11.0)
[2017-07-26 18:23] LABS: PARTIAL THROMBOPLASTIN TIME 27 SECONDS (22-32); PROTHROMBIN TIME 10.4 SECONDS (9.0-12.0)
[2017-07-26 18:31] LABS: ALANINE AMINOTRANSFERASE 37 U/L (12-78); ALBUMIN 3.9 G/DL (3.4-5.0); ALBUMIN/GLOBULIN RATIO 0.9 (1.1-1.5); ALKALINE PHOSPHATASE 94 IU/L (46-116); ANION GAP 10 (8-16); ASPARTATE AMINO TRANSFERASE 30 U/L (10-37); BILIRUBIN,TOTAL 0.3 MG/DL (0.1-1.0); BLOOD UREA NITROGEN 22 MG/DL (7-18); BUN/CREATININE RATIO 24.4 (6.6-38.0); CALCIUM 9.6 MG/DL (8.5-10.1); CHLORIDE 100 MMOL/L (99-107); GLUCOSE 189 MG/DL (70-104); POTASSIUM 3.1 MMOL/L (3.5-5.1); SODIUM 143 MMOL/L (135-145); TOTAL CARBON DIOXIDE 33.1 MMOL/L (24-32); TOTAL PROTEIN 8.4 G/DL (6.4-8.2); eGFR 60 ML/MIN
[2017-07-26 18:34] LABS: MAGNESIUM 1.7 MG/DL (1.5-2.4); TROPONIN I < 0.04 NG/ML (0.0-0.05)
[2017-07-26] MEDS ORDERED: glycopyrrolate 0.2mg/ml inj IV ONE (18:50)
[2017-07-26 19:21] LABS: ABG BASE EXCESS 6.3 mmol/L (-2.0-3.0); ABG OXYGEN SATURATION 93.2 % (95-98); ABG PCO2 (T) 39.6 mmHg (32.0-45.0); ABG PH (T) 7.497 (7.350-7.450); ABG PO2 (T) 64.7 mmHg (83-108); FCOHb 0.9 % (0.5-1.5); FLOW 2 L/min; FMetHb 0.3 % (0.3-1.12); FO2Hb 92.1 % (94-100); PATIENT TEMPERATURE 36.8; TOTAL HEMOGLOBIN 11.8 G/dl (12.0-16.0)
[2017-07-26] MEDS ORDERED: normal saline 1000ML IV soln IVB ONE (19:25)
[2017-07-26] MEDS ORDERED: magnesium hydroxide 30ml (MOM) UD suspension PO PRN (20:05)
[2017-07-26] MEDS ORDERED: ondansetron/PF 4mg/2ml inj IV PRN (20:05)
[2017-07-26] MEDS ORDERED: mag hydrox/Alum hydrox/simeth 30ml oral suspension PO PRN (20:05)
[2017-07-26] MEDS ORDERED: MESSAGE TO PHARMACY PO ONE (20:15)
[2017-07-26] MEDS ORDERED: albuterol 2.5 MG/3 ML nebule NEB PRN (20:15)
[2017-07-26] MEDS ORDERED: dextrose ORAL solution 15 GM/59 ML bottle PO PRN ×2 (20:15)
[2017-07-26] MEDS ORDERED: dextrose 50%-water 50ml dispensing syringe IV PRN ×2 (20:15)
[2017-07-26] MEDS ORDERED: glucagon, human recombinant 1mg kit SUBCUT PRN (20:15)
[2017-07-26] MEDS ORDERED: INSU100V9 SQ (20:22)
[2017-07-26 20:46] LABS: HEMOGLOBIN A1C 7.4 % (4.5-6.2)
[2017-07-26] MEDS ORDERED: ipratropium 0.5 MG/2.5ML nebule IH SCH (21:00)
[2017-07-26] MEDS: sucralfate 1gm/10ml UD suspension PO SCH (21:00)
[2017-07-26 21:15] VITALS: BP 174/75
[2017-07-26] MEDS ORDERED: ipratropium/albuterol 3ml nebule NEB PRN (21:45)
[2017-07-26] MEDS: acetaminophen 325mg tablet PO PRN (21:52)
[2017-07-26] MEDS ORDERED: cloNIDine 0.1 mg tablet PO ONE (22:05)
[2017-07-26] MEDS: potassium Cl 20mEq in NS 1,000 ML IV SCH (22:39)
[2017-07-26] MEDS ORDERED: insulin regular, human vial - multi-dose ONE (23:09)
[2017-07-26] MEDS ORDERED: insulin glargine (Lantus) pen - multi-dose SQ ONE (23:09)
[2017-07-26] MEDS: insulin Lispro (HumaLOG) vial - multi-dose SQ ONE (23:32)
[2017-07-26] MEDS: insulin glargine (Lantus) pen - multi-dose SQ SCH (23:34)
[2017-07-26] MEDS: insulin Lispro (HumaLOG) vial - multi-dose SQ SCH (23:58)
[2017-07-27] MEDS: insulin Lispro (HumaLOG) vial - multi-dose SQ ONE (00:01)
[2017-07-27] MEDS: methylPREDNISolone sod succ/PF 40mg inj. IV SCH ×4 (00:08→23:27)
[2017-07-27] MEDS: potassium Cl 20 mEq SR tablet PO SCH ×2 (00:08→09:07)
[2017-07-27 03:41] LABS: BASOPHILS % (AUTO) 0 % (0-1); EOSINOPHILS % (AUTO) 0 % (0-6); HEMATOCRIT 33.7 % (35.0-45.0); HEMOGLOBIN 10.7 g/dl (12.0-16.0); LYMPHOCYTES # (AUTO) 0.3 X10'3 (1.1-4.8); LYMPHOCYTES % (AUTO) 9.7 % (21-51); MEAN CORPUSCULAR HGB CONC 31.8 % (33.0-36.5); MEAN CORPUSCULAR VOLUME 75.4 FL (78-98); MEAN PLATELET VOLUME 8.8 FL (7.4-10.4); NEUTROPHILS # (AUTO) 2.9 X10'3 (1.8-7.7); NEUTROPHILS % (AUTO) 89.3 % (42-75); PLATELET COUNT 212 X10'3 (140-440); RED BLOOD COUNT 4.47 X10'6 (4.20-5.60); RED CELL DISTRIBUTION WIDTH 17.4 % (11.5-14.5); WHITE BLOOD COUNT 3.3 X10'3 (4.5-11.0)
[2017-07-27 03:43] VITALS: BP 158/67
[2017-07-27 04:09] LABS: ALANINE AMINOTRANSFERASE 29 U/L (12-78); ALBUMIN 3.2 G/DL (3.4-5.0); ALBUMIN/GLOBULIN RATIO 0.8 (1.1-1.5); ALKALINE PHOSPHATASE 72 IU/L (46-116); ANION GAP 8 (8-16); ASPARTATE AMINO TRANSFERASE 22 U/L (10-37); BILIRUBIN,TOTAL 0.3 MG/DL (0.1-1.0); BLOOD UREA NITROGEN 16 MG/DL (7-18); BUN/CREATININE RATIO 20.8 (6.6-38.0); CALCIUM 8.6 MG/DL (8.5-10.1); CHLORIDE 102 MMOL/L (99-107); CREATININE 0.77 MG/DL (0.40-0.90); GLUCOSE 275 MG/DL (70-104); SODIUM 142 MMOL/L (135-145); TOTAL CARBON DIOXIDE 32.1 MMOL/L (24-32); TOTAL PROTEIN 7.4 G/DL (6.4-8.2); eGFR 72 ML/MIN
[2017-07-27] MEDS ORDERED: potassium chloride 10mEq CAPSULE.SA PO ONE (04:20)
[2017-07-27] MEDS ORDERED: potassium Cl 20 mEq SR tablet PO STA (04:38)
[2017-07-27] MEDS: ipratropium/albuterol 3ml nebule NEB SCH ×4 (06:28→18:45)
[2017-07-27] MEDS ORDERED: magnesium 4gm in 100ml NS 100 ML IV PRN (07:20)
[2017-07-27] MEDS ORDERED: potassium Cl 40MEQ/NS 500ml 500 ML IV PRN ×2 (07:20)
[2017-07-27] MEDS ORDERED: potassium Cl 20 mEq SR tablet PO PRN ×2 (07:20)
[2017-07-27] MEDS ORDERED: magnesium/D5W IVPB 100 ML IV PRN (07:20)
[2017-07-27 07:45] VITALS: BP 104/62
[2017-07-27] MEDS: BUDESONIDE 0.25 MG/2 ML AMPUL.NEB IH SCH ×2 (08:00→18:45)
[2017-07-27] MEDS ORDERED: potassium Cl 20 mEq SR tablet PO SCH (08:00)
[2017-07-27] MEDS: sucralfate 1gm/10ml UD suspension PO SCH ×4 (09:07→20:56)
[2017-07-27] MEDS: cloNIDine 0.1 mg tablet PO SCH ×2 (09:07→19:09)
[2017-07-27] MEDS: metoprolol tartrate 25mg tablet PO SCH ×2 (09:08→19:09)
[2017-07-27] MEDS: heparin, porcine 5000 units/ml vial SQ SCH ×2 (09:08→19:11)
[2017-07-27] MEDS: clopidogrel 75mg tablet PO SCH (09:08)
[2017-07-27] MEDS: insulin Lispro (HumaLOG) vial - multi-dose SQ SCH ×3 (09:22→19:08)
[2017-07-27] MEDS: potassium Cl 20mEq in NS 1,000 ML IV SCH ×2 (12:45→15:14)
[2017-07-27 19:00] VITALS: BP 170/65
[2017-07-27] MEDS: acetaminophen 325mg tablet PO PRN (19:05)
[2017-07-27] MEDS: docusate sod 100mg capsule PO SCH (19:24)
[2017-07-27] MEDS: insulin glargine (Lantus) pen - multi-dose SQ SCH (21:01)
[2017-07-27 23:30] VITALS: BP 156/60
[2017-07-28] MEDS: acetaminophen 325mg tablet PO PRN ×2 (01:40→16:11)
[2017-07-28 05:01] LABS: BASOPHILS % (AUTO) 0 % (0-1); EOSINOPHILS # (AUTO) 0.1 X10'3 (0-0.9); HEMATOCRIT 34.6 % (35.0-45.0); HEMOGLOBIN 11.1 g/dl (12.0-16.0); LYMPHOCYTES # (AUTO) 0.6 X10'3 (1.1-4.8); LYMPHOCYTES % (AUTO) 6.1 % (21-51); MEAN CORPUSCULAR HEMOGLOBIN 24.3 PG (27.0-31.0); MEAN CORPUSCULAR VOLUME 75.8 FL (78-98); MEAN PLATELET VOLUME 8.9 FL (7.4-10.4); MONOCYTES # (AUTO) 0.2 X10'3 (0-0.9); MONOCYTES % (AUTO) 2.1 % (2-12); NEUTROPHILS # (AUTO) 9.4 X10'3 (1.8-7.7); NEUTROPHILS % (AUTO) 90.8 % (42-75); PLATELET COUNT 232 X10'3 (140-440); RED BLOOD COUNT 4.56 X10'6 (4.20-5.60); RED CELL DISTRIBUTION WIDTH 17.9 % (11.5-14.5); WHITE BLOOD COUNT 10.3 X10'3 (4.5-11.0)
[2017-07-28 05:27] LABS: ALANINE AMINOTRANSFERASE 29 U/L (12-78); ALBUMIN 3.3 G/DL (3.4-5.0); ALBUMIN/GLOBULIN RATIO 0.8 (1.1-1.5); ALKALINE PHOSPHATASE 70 IU/L (46-116); ANION GAP 6 (8-16); ASPARTATE AMINO TRANSFERASE 22 U/L (10-37); BILIRUBIN,TOTAL 0.4 MG/DL (0.1-1.0); BLOOD UREA NITROGEN 17 MG/DL (7-18); BUN/CREATININE RATIO 22.7 (6.6-38.0); CALCIUM 8.9 MG/DL (8.5-10.1); CHLORIDE 103 MMOL/L (99-107); CREATININE 0.75 MG/DL (0.40-0.90); GLUCOSE 217 MG/DL (70-104); MAGNESIUM 1.8 MG/DL (1.5-2.4); POTASSIUM 4.3 MMOL/L (3.5-5.1); SODIUM 138 MMOL/L (135-145); TOTAL CARBON DIOXIDE 29.5 MMOL/L (24-32); TOTAL PROTEIN 7.5 G/DL (6.4-8.2); eGFR 74 ML/MIN
[2017-07-28] MEDS: ipratropium/albuterol 3ml nebule NEB SCH ×3 (07:25→19:11)
[2017-07-28] MEDS: BUDESONIDE 0.25 MG/2 ML AMPUL.NEB IH SCH ×2 (07:26→19:10)
[2017-07-28 07:32] VITALS: BP 177/78
[2017-07-28] MEDS: sucralfate 1gm/10ml UD suspension PO SCH ×4 (08:39→20:58)
[2017-07-28] MEDS: clopidogrel 75mg tablet PO SCH (08:40)
[2017-07-28] MEDS: docusate sod 100mg capsule PO SCH ×2 (08:40→20:41)
[2017-07-28] MEDS: cloNIDine 0.1 mg tablet PO SCH ×2 (08:40→20:42)
[2017-07-28] MEDS: metoprolol tartrate 25mg tablet PO SCH ×2 (08:40→20:41)
[2017-07-28] MEDS: methylPREDNISolone sod succ/PF 40mg inj. IV SCH ×3 (08:41→23:20)
[2017-07-28] MEDS: heparin, porcine 5000 units/ml vial SQ SCH ×2 (08:41→20:41)
[2017-07-28] MEDS: insulin Lispro (HumaLOG) vial - multi-dose SQ SCH ×2 (08:46→13:17)
[2017-07-28] MEDS: potassium Cl 20mEq in NS 1,000 ML IV SCH (08:48)
[2017-07-28] MEDS ORDERED: pneumococcal 23-VAL P-sac vacc 25 mcg/0.5ml vial IMVAC ONE (10:00)
[2017-07-28 11:50] VITALS: BP 170/74
[2017-07-28 20:00] VITALS: BP 123/96
[2017-07-28] MEDS: insulin glargine (Lantus) pen - multi-dose SQ SCH (20:47)
[2017-07-28] MEDS: hydrALAZINE 20mg/ml inj. IV PRN (23:20)
[2017-07-29] VITALS: BP 169/67
[2017-07-29 00:45] VITALS: BP 144/62
[2017-07-29] MEDS: potassium Cl 20mEq in NS 1,000 ML IV SCH (00:56)
[2017-07-29 05:38] LABS: BASOPHILS % (AUTO) 0 % (0-1); EOSINOPHILS % (AUTO) 0 % (0-6); HEMATOCRIT 35.8 % (35.0-45.0); HEMOGLOBIN 11.3 g/dl (12.0-16.0); LYMPHOCYTES # (AUTO) 0.5 X10'3 (1.1-4.8); LYMPHOCYTES % (AUTO) 4.8 % (21-51); MEAN CORPUSCULAR HEMOGLOBIN 23.9 PG (27.0-31.0); MEAN CORPUSCULAR HGB CONC 31.5 % (33.0-36.5); MEAN CORPUSCULAR VOLUME 75.9 FL (78-98); MEAN PLATELET VOLUME 8.9 FL (7.4-10.4); MONOCYTES # (AUTO) 0.2 X10'3 (0-0.9); NEUTROPHILS # (AUTO) 9.5 X10'3 (1.8-7.7); NEUTROPHILS % (AUTO) 93.2 % (42-75); PLATELET COUNT 239 X10'3 (140-440); RED BLOOD COUNT 4.72 X10'6 (4.20-5.60); RED CELL DISTRIBUTION WIDTH 17.9 % (11.5-14.5); WHITE BLOOD COUNT 10.2 X10'3 (4.5-11.0)
[2017-07-29 06:13] LABS: ALANINE AMINOTRANSFERASE 76 U/L (12-78); ALBUMIN 3.3 G/DL (3.4-5.0); ALBUMIN/GLOBULIN RATIO 0.8 (1.1-1.5); ALKALINE PHOSPHATASE 72 IU/L (46-116); ANION GAP 6 (8-16); ASPARTATE AMINO TRANSFERASE 45 U/L (10-37); BILIRUBIN,TOTAL 0.4 MG/DL (0.1-1.0); BLOOD UREA NITROGEN 18 MG/DL (7-18); BUN/CREATININE RATIO 23.7 (6.6-38.0); CALCIUM 9.5 MG/DL (8.5-10.1); CHLORIDE 102 MMOL/L (99-107); CREATININE 0.76 MG/DL (0.40-0.90); GLUCOSE 201 MG/DL (70-104); MAGNESIUM 1.9 MG/DL (1.5-2.4); POTASSIUM 4.4 MMOL/L (3.5-5.1); SODIUM 137 MMOL/L (135-145); TOTAL CARBON DIOXIDE 28.8 MMOL/L (24-32); TOTAL PROTEIN 7.6 G/DL (6.4-8.2); eGFR 73 ML/MIN
[2017-07-29] MEDS: ipratropium/albuterol 3ml nebule NEB SCH ×2 (07:09→11:07)
[2017-07-29] MEDS: BUDESONIDE 0.25 MG/2 ML AMPUL.NEB IH SCH (07:09)
[2017-07-29 08:07] VITALS: BP 174/75
[2017-07-29] MEDS: methylPREDNISolone sod succ/PF 40mg inj. IV SCH (08:14)
[2017-07-29] MEDS: heparin, porcine 5000 units/ml vial SQ SCH (08:15)
[2017-07-29] MEDS: docusate sod 100mg capsule PO SCH (08:15)
[2017-07-29] MEDS: cloNIDine 0.1 mg tablet PO SCH (08:15)
[2017-07-29] MEDS: clopidogrel 75mg tablet PO SCH (08:15)
[2017-07-29] MEDS: sucralfate 1gm/10ml UD suspension PO SCH ×2 (08:15→11:45)
[2017-07-29] MEDS: metoprolol tartrate 25mg tablet PO SCH (08:19)
[2017-07-29] MEDS: insulin Lispro (HumaLOG) vial - multi-dose SQ SCH ×2 (10:12→13:00)
[2017-07-29 11:37] VITALS: BP 173/67
[2017-07-29] MEDS: hydrALAZINE 20mg/ml inj. IV PRN (11:45)
== END 2017-07-29 16:17 | DRG 193 ==
LOC: ER 17:21 → ED HOLD 20:05 → SUR 3N 21:12
PROVIDERS: ADMIT Internal Medicine; ATTEND Family Medicine
DX: J18.9 Pneumonia, unspecified organism (principal); J96.20 Acute and chronic respiratory failure, unspecified whether with hypoxia or hypercapnia; J44.1 Chronic obstructive pulmonary disease with (acute) exacerbation; J44.0 Chronic obstructive pulmonary disease with (acute) lower respiratory infection; I48.91 Unspecified atrial fibrillation; I10 Essential (primary) hypertension; E11.9 Type 2 diabetes mellitus without complications; G47.30 Sleep apnea, unspecified; G89.29 Other chronic pain; M19.90 Unspecified osteoarthritis, unspecified site; I25.10 Atherosclerotic heart disease of native coronary artery without angina pectoris; K21.9 Gastro-esophageal reflux disease without esophagitis; Z93.3 Colostomy status; Z99.81 Dependence on supplemental oxygen; Z90.49 Acquired absence of other specified parts of digestive tract; Z90.710 Acquired absence of both cervix and uterus; Z88.2 Allergy status to sulfonamides; Z88.8 Allergy status to other drugs, medicaments and biological substances; Z79.899 Other long term (current) drug therapy; Z79.4 Long term (current) use of insulin; Z79.02 Long term (current) use of antithrombotics/antiplatelets; Z86.14 Personal history of Methicillin resistant Staphylococcus aureus infection; Z85.038 Personal history of other malignant neoplasm of large intestine; Z86.73 Personal history of transient ischemic attack (TIA), and cerebral infarction without residual deficits; Z87.891 Personal history of nicotine dependence
CPT/HCPCS: 36415; 36600; 71045; 80053; 81001; 82803; 82948; 83036; 83605; 83735; 83880; 84132; 84145; 84484; 85018; 85025; 85610; 85730; 87040; 87070; 87088; 93005; 94640; 94667; 94668; 94760; 96365; 96375; 97116; 97162; 97530; 99285; A6212; J0360; J1644; J1815; J1956; J2920; J2930; J3490; J7030

== ENCOUNTER 2017-09-10 10:17 | Outpatient (CLI) | payer MEDICARE, OTHER ==
[~2017-09-10 10:17] MED LIST changes: -ASPI81TA52 PO; -ATOR20TA66 PO; -HYDR12.522 PO; +INSU100V9 SQ; -LANTUS SQ; -LISI-600 PO
== END 2017-09-10 23:59 | disposition home or self-care (01) ==
LOC: PRE-OP 10:17 → EDSTATUS 09-15 08:00
PROVIDERS: ATTEND Surgery
DX: K43.9 Ventral hernia without obstruction or gangrene (principal); Z53.21 Procedure and treatment not carried out due to patient leaving prior to being seen by health care provider

== ENCOUNTER 2017-11-24 05:55 | Inpatient (IN) | payer MEDICARE, OTHER ==
[2017-11-16 16:00] LABS: CLARITY,URINE SLIGHTLY CLOUDY (Clear); COLOR,URINE YELLOW (Yellow); GLUCOSE, URINE NEGATIVE (Neg); KETONES,URINE NEGATIVE (Neg); LEUKOCYTE ESTERASE ,URINE NEGATIVE (Neg); NITRITES, URINE NEGATIVE (Neg); OCCULT BLOOD,URINE NEGATIVE (Neg); PH,URINE 6.5 (4.8-8.0); PROTEIN,URINE 100 mg/dl (Neg); UROBILINOGEN,URINE 0.2 E.U/dL (0.2-1.0)
[2017-11-16 16:02] LABS: UA COLLECTION TYPE CLN CATCH MIDSTREAM
[2017-11-16 16:05] LABS: BASOPHILS % (AUTO) 0.6 % (0-1); EOSINOPHILS # (AUTO) 0.1 X10'3 (0-0.9); EOSINOPHILS % (AUTO) 2.3 % (0-6); LYMPHOCYTES % (AUTO) 20.1 % (21-51); MEAN CORPUSCULAR HEMOGLOBIN 25.6 PG (27.0-31.0); MEAN CORPUSCULAR HGB CONC 32.6 % (33.0-36.5); MEAN CORPUSCULAR VOLUME 78.5 FL (78-98); MEAN PLATELET VOLUME 8.9 FL (7.4-10.4); MONOCYTES # (AUTO) 0.5 X10'3 (0-0.9); NEUTROPHILS # (AUTO) 3.5 X10'3 (1.8-7.7); PRE OP HEMATOCRIT 29.7 % (35.0-45.0); PRE OP PLATELET COUNT 200 X10'3 (140-440); RED BLOOD COUNT 3.78 X10'6 (4.20-5.60); RED CELL DISTRIBUTION WIDTH 15.3 % (11.5-14.5)
[2017-11-16 16:06] LABS: HEMOGLOBIN A1C 6.9 % (4.5-6.2)
[2017-11-16 16:11] LABS: ALBUMIN 3.3 G/DL (3.4-5.0); ALBUMIN/GLOBULIN RATIO 0.8 (1.1-1.5); ALKALINE PHOSPHATASE 98 IU/L (46-116); BLOOD UREA NITROGEN 16 MG/DL (7-18); BUN/CREATININE RATIO 21.3 (6.6-38.0); CALCIUM 9.1 MG/DL (8.5-10.1); CHLORIDE 104 MMOL/L (99-107); CREATININE 0.75 MG/DL (0.40-0.90); PRE OP ALT 26 U/L (30-65); PRE OP ANION GAP 8 (8-16); PRE OP AST 21 U/L (10-37); PRE OP BILIRUB, TOTAL 0.3 MG/DL (0.0-1.0); PRE OP GLUCOSE 137 MG/DL (70-104); PRE OP POTASSIUM 3.9 MMOL/L (3.4-5.1); PRE OP SODIUM 141 MMOL/L (135-145); TOTAL CARBON DIOXIDE 29.5 MMOL/L (24-32); TOTAL PROTEIN 7.6 G/DL (6.4-8.2); eGFR 74 ML/MIN
[2017-11-16 16:12] LABS: PRE OP PROTIME 10.7 SECONDS (9.0-12.0)
[2017-11-16 16:12] LABS: MUCUS STRANDS NONE SEEN /LPF (Neg); SQUAMOUS EPITHELIAL CELL,UR MANY /LPF (FEW); TRANSITIONAL EPI CELLS,URINE FEW /HPF
[2017-11-16 16:14] LABS: BACTERIA,URINE FEW /HPF (Neg); RBC,URINE 0-2 /HPF (0-2); WBC,URINE 0-4 /HPF (0-4)
[2017-11-16 16:26] LABS: PRE OP HEMOGLOBIN 9.7 g/dL (12.0-16.0)
[2017-11-24] VITALS (31 sets, daily range): BP systolic 134–178; BP diastolic 44–84
[~2017-11-24] VITALS: Ht 154.9 cm; Wt 80.3 kg
[~2017-11-24 05:55] MED LIST changes: +ALBU8.5H8 IH; +ALEN35TA32 PO; +AMLO10TA PO; +ATOR20TA66 PO; +AZIT-72 PO; +BENEFIBER PO; +BUDE0.5A11 IH; -CHOL2000 PO; +DEXL60CA3 PO; -DOCU-28 PO; -FERR1TAB9 PO; +FLUC200T PO; +FLUT1DIS4 INH; +FURO-149 PO; +HYDR-4069 PO; +IPRA3AMP31 IH; +KEN0.1O TP; -LOP25T PO; -ONDA4TAB6 PO; +albuterol 2.5 MG/3 ML nebule NEB ONE; +cefazolin/dext.iso 2gm/100 ML IV ONE; +famotidine 20mg tablet PO ONE
[2017-11-24] MEDS ORDERED: LIDOcaine 1% (10mg/ml) 2ml vial ONE (06:34)
[2017-11-24] MEDS ORDERED: BUPIVAcaine/PF 2.5mg/ml (0.25%) 10ml vial ONE (06:46)
[2017-11-24] MEDS: ringers solution, lacted 1,000 ML IV SCH ×2 (06:57→11:50)
[2017-11-24] MEDS ORDERED: etomidate 2mg/ml inj. ONE (08:23)
[2017-11-24] MEDS ORDERED: fentaNYL/PF 50MCG/1 ML 2ML syringe ONE (08:23)
[2017-11-24] MEDS ORDERED: midazolam 2 mg/2 ml injection ONE (08:23)
[2017-11-24] MEDS ORDERED: rocuronium 10mg/ml inj IV ONE (08:24)
[2017-11-24] MEDS ORDERED: ringers solution, lacted 1,000 ML IV SCH (08:27)
[2017-11-24] MEDS ORDERED: morphine 4 MG/ML inj SYRINge IV PRN (08:30)
[2017-11-24] MEDS ORDERED: hydrALAZINE 20mg/ml inj. IV PRN (08:30)
[2017-11-24] MEDS ORDERED: fentaNYL/PF 50MCG/1 ML 2ML syringe IV PRN (08:30)
[2017-11-24] MEDS ORDERED: ondansetron/PF 4mg/2ml inj IV PRN ×2 (08:30→11:45)
[2017-11-24] MEDS ORDERED: labetalol 20mg/4ml (5mg/ml) syringe IV PRN (08:30)
[2017-11-24] MEDS ORDERED: LIDOcaine 2% (20mg/ml) 5ml vial ONE (08:33)
[2017-11-24] MEDS ORDERED: propofol 10mg/ml 20ml vial IV ONE (08:33)
[2017-11-24] MEDS ORDERED: sevoflurane 250ml liquid IH ONE (08:33)
[2017-11-24] MEDS ORDERED: ePHEDrine 50MG/ML INJ. ONE (08:33)
[2017-11-24] MEDS ORDERED: glycopyrrolate 0.2mg/ml inj ONE (09:38)
[2017-11-24] MEDS ORDERED: neostigmine methylsulfate 1 MG/ML 10ml vial ONE (09:38)
[2017-11-24] MEDS ORDERED: furosemide 20 MG/2 ML vial IV ONE (10:15)
[2017-11-24] MEDS: morphine 4 MG/ML inj SYRINge IV PRN ×2 (10:25→10:50)
[2017-11-24] MEDS ORDERED: furosemide 40mg/4ml inj ONE (10:26)
[2017-11-24] MEDS: fentaNYL/PF 50MCG/1 ML 2ML syringe IV PRN ×2 (11:00→12:28)
[2017-11-24] MEDS ORDERED: acetaminophen 1,000mg/100ml IV 100 ML IV ONE (11:15)
[2017-11-24] MEDS: potassium CL 20mEq in D5-1/2NS 1,000 ML IV SCH ×2 (11:43→16:17)
[2017-11-24] MEDS ORDERED: HYDROcodone/acetaminophen 5mg/325mg tablet PO PRN (11:45)
[2017-11-24] MEDS ORDERED: ipratropium/albuterol 3ml nebule ONE (13:06)
[2017-11-24] MEDS ORDERED: albuterol 2.5 MG/3 ML nebule ONE (13:07)
[2017-11-24] MEDS ORDERED: fluconazole 100mg tablet PO PRN (13:15)
[2017-11-24] MEDS ORDERED: non-formulary drug (Alendronate Sodium 1 TAB) PO SCH (13:15)
[2017-11-24] MEDS: ipratropium/albuterol 3ml nebule IH SCH ×2 (13:25→19:18)
[2017-11-24] MEDS ORDERED: albuterol 2.5 MG/3 ML nebule NEB PRN (13:30)
[2017-11-24] MEDS ORDERED: glucagon, human recombinant 1mg kit SUBCUT PRN ×2 (14:10→14:20)
[2017-11-24] MEDS ORDERED: dextrose ORAL solution 15 GM/59 ML bottle PO PRN ×4 (14:10→14:20)
[2017-11-24] MEDS ORDERED: dextrose 50%-water 50ml dispensing syringe IV PRN ×4 (14:10→14:20)
[2017-11-24] MEDS ORDERED: MESSAGE TO PHARMACY PO ONE (14:20)
[2017-11-24] MEDS: HYDROcodone/acetaminophen 10/325mg tab PO PRN ×2 (14:54→19:21)
[2017-11-24] MEDS: pantoprazole 40mg Tablet.DR PO SCH (14:55)
[2017-11-24] MEDS ORDERED: albuterol 2.5 MG/3 ML nebule NEB SCH (15:00)
[2017-11-24] MEDS: ceFAZolin 1GM/D5W- ADD-VANTAGE 50 ML IV SCH (16:17)
[2017-11-24] MEDS ORDERED: insulin Lispro (HumaLOG) vial - multi-dose SQ SCH (17:00)
[2017-11-24] MEDS: budesonide 0.5mg/2ml UD nebule IH SCH (19:18)
[2017-11-24] MEDS: enoxaparin 30mg/0.3ml syringe SQ SCH (19:20)
[2017-11-24] MEDS: hydrALAZINE 25 MG tablet PO SCH (19:20)
[2017-11-24] MEDS: triamcinolone acet 0.1% cream 15gm TP SCH (20:00)
[2017-11-24] MEDS ORDERED: non-formulary drug (Fluticasone/Salmeterol (Advair 250-50 Diskus) 1 PUFFS) INH SCH (20:00)
[2017-11-24] MEDS ORDERED: FLUTICASONE PROPIONATE 110 MCG IH SCH (20:00)
[2017-11-24] MEDS ORDERED: insulin glargine (Lantus) pen - multi-dose SQ SCH (21:00)
[2017-11-24] MEDS: insulin glargine (Lantus) pen - multi-dose SQ SCH (21:00)
[2017-11-24] MEDS: cloNIDine 0.1 mg tablet PO SCH (22:35)
[2017-11-24] MEDS: amLODIPine 5mg tablet PO SCH (22:36)
[2017-11-24] MEDS: tolterodine 2mg SR capsule (24hr) PO SCH (22:36)
[2017-11-25] MEDS: tolterodine 2mg SR capsule (24hr) PO SCH ×3 (00:38→20:36)
[2017-11-25] MEDS: ceFAZolin 1GM/D5W- ADD-VANTAGE 50 ML IV SCH (01:13)
[2017-11-25] MEDS: HYDROcodone/acetaminophen 10/325mg tab PO PRN ×3 (01:24→14:18)
[2017-11-25 05:27] LABS: BASOPHILS % (AUTO) 0.1 % (0-1); EOSINOPHILS # (AUTO) 0.1 X10'3 (0-0.9); EOSINOPHILS % (AUTO) 0.9 % (0-6); HEMATOCRIT 33.2 % (35.0-45.0); HEMOGLOBIN 10.3 g/dl (12.0-16.0); LYMPHOCYTES # (AUTO) 0.6 X10'3 (1.1-4.8); LYMPHOCYTES % (AUTO) 3.8 % (21-51); MEAN CORPUSCULAR HEMOGLOBIN 24.4 PG (27.0-31.0); MEAN CORPUSCULAR VOLUME 78.7 FL (78-98); MONOCYTES # (AUTO) 1.1 X10'3 (0-0.9); MONOCYTES % (AUTO) 7.2 % (2-12); NEUTROPHILS # (AUTO) 13.3 X10'3 (1.8-7.7); PLATELET COUNT 256 X10'3 (140-440); RED BLOOD COUNT 4.22 X10'6 (4.20-5.60); WHITE BLOOD COUNT 15.1 X10'3 (4.5-11.0)
[2017-11-25 05:56] LABS: ALBUMIN 2.7 G/DL (3.4-5.0); ANION GAP 7 (8-16); BLOOD UREA NITROGEN 8 MG/DL (7-18); BUN/CREATININE RATIO 10.8 (6.6-38.0); CALCIUM 8.6 MG/DL (8.5-10.1); CHLORIDE 101 MMOL/L (99-107); CREATININE 0.74 MG/DL (0.40-0.90); GLUCOSE 170 MG/DL (70-104); SODIUM 140 MMOL/L (135-145); TOTAL CARBON DIOXIDE 32.1 MMOL/L (24-32); TROPONIN I 0.08 NG/ML (0.0-0.05); eGFR 75 ML/MIN
[2017-11-25 06:30] LABS: POTASSIUM 2.9 MMOL/L (3.5-5.1)
[2017-11-25] MEDS ORDERED: potassium Cl 40MEQ/NS 500ml 500 ML IV PRN ×4 (06:50→09:30)
[2017-11-25] MEDS ORDERED: potassium Cl 20 mEq SR tablet PO PRN ×3 (06:50→09:30)
[2017-11-25 07:25] VITALS: BP 147/63
[2017-11-25] MEDS: ipratropium/albuterol 3ml nebule IH SCH (07:39)
[2017-11-25] MEDS: budesonide 0.5mg/2ml UD nebule IH SCH ×2 (07:39→19:21)
[2017-11-25] MEDS: methylPREDNISolone sod succ 125mg/2ml vial IV SCH ×2 (07:39→20:34)
[2017-11-25] MEDS: triamcinolone acet 0.1% cream 15gm TP SCH ×2 (07:40→20:36)
[2017-11-25] MEDS: hydrALAZINE 25 MG tablet PO SCH ×2 (07:49→20:35)
[2017-11-25] MEDS: pantoprazole 40mg Tablet.DR PO SCH (07:49)
[2017-11-25] MEDS: potassium Cl 20 mEq SR tablet PO SCH (07:50)
[2017-11-25] MEDS: cloNIDine 0.1 mg tablet PO SCH ×2 (07:50→20:34)
[2017-11-25] MEDS: atorvastatin 20mg tablet PO SCH (07:51)
[2017-11-25] MEDS: clopidogrel 75mg tablet PO SCH (07:52)
[2017-11-25] MEDS: enoxaparin 30mg/0.3ml syringe SQ SCH ×2 (07:59→20:37)
[2017-11-25] MEDS ORDERED: non-formulary drug (Tiotropium Bromide* (Spiriva*) 18 MCG) IH SCH (08:00)
[2017-11-25] MEDS ORDERED: azithromycin 250mg tablet PO SCH (08:00)
[2017-11-25] MEDS ORDERED: TSP PO SCH (08:00)
[2017-11-25] MEDS ORDERED: furosemide 40mg tablet PO SCH (08:00)
[2017-11-25] MEDS ORDERED: magnesium Cl slow-release 64mg tablet PO PRN (09:30)
[2017-11-25] MEDS ORDERED: magnesium 4gm in 100ml NS 100 ML IV PRN (09:30)
[2017-11-25 11:00] VITALS: BP 147/67
[2017-11-25] MEDS: ipratropium/albuterol 3ml nebule NEB SCH ×4 (11:00→23:08)
[2017-11-25] MEDS: furosemide 40mg/4ml inj IV SCH ×2 (11:17→20:33)
[2017-11-25] MEDS: potassium Cl 20 mEq SR tablet PO PRN ×2 (12:58→20:34)
[2017-11-25] MEDS: insulin Lispro (HumaLOG) vial - multi-dose SQ SCH ×2 (14:24→19:00)
[2017-11-25] MEDS: levoFLOXACIN-Levaquin 750MG/D5 150 ML IV SCH (18:58)
[2017-11-25 20:00] VITALS: BP 148/64
[2017-11-25] MEDS: amLODIPine 5mg tablet PO SCH (20:35)
[2017-11-25] MEDS: insulin glargine (Lantus) pen - multi-dose SQ SCH (20:50)
[2017-11-26] MEDS: ipratropium/albuterol 3ml nebule NEB SCH ×6 (02:43→22:51)
[2017-11-26 05:10] LABS: BASOPHILS % (AUTO) 0 % (0-1); EOSINOPHILS % (AUTO) 0 % (0-6); HEMATOCRIT 33.7 % (35.0-45.0); HEMOGLOBIN 10.6 g/dl (12.0-16.0); LYMPHOCYTES # (AUTO) 0.3 X10'3 (1.1-4.8); MEAN CORPUSCULAR HEMOGLOBIN 24.7 PG (27.0-31.0); MEAN CORPUSCULAR HGB CONC 31.3 % (33.0-36.5); MEAN CORPUSCULAR VOLUME 78.7 FL (78-98); MEAN PLATELET VOLUME 8.8 FL (7.4-10.4); MONOCYTES # (AUTO) 0.6 X10'3 (0-0.9); MONOCYTES % (AUTO) 4.8 % (2-12); NEUTROPHILS # (AUTO) 11.8 X10'3 (1.8-7.7); NEUTROPHILS % (AUTO) 93.2 % (42-75); PLATELET COUNT 242 X10'3 (140-440); RED BLOOD COUNT 4.29 X10'6 (4.20-5.60); RED CELL DISTRIBUTION WIDTH 16.9 % (11.5-14.5); WHITE BLOOD COUNT 12.7 X10'3 (4.5-11.0)
[2017-11-26 05:28] LABS: ALBUMIN 2.5 G/DL (3.4-5.0); ANION GAP 7 (8-16); BLOOD UREA NITROGEN 13 MG/DL (7-18); BUN/CREATININE RATIO 17.6 (6.6-38.0); CALCIUM 9.1 MG/DL (8.5-10.1); CHLORIDE 98 MMOL/L (99-107); CREATININE 0.74 MG/DL (0.40-0.90); GLUCOSE 226 MG/DL (70-104); MAGNESIUM 1.4 MG/DL (1.5-2.4); PHOSPHORUS 2.5 MG/DL (2.3-4.5); SODIUM 138 MMOL/L (135-145); TOTAL CARBON DIOXIDE 33.5 MMOL/L (24-32); eGFR 75 ML/MIN
[2017-11-26 07:00] VITALS: BP 170/75
[2017-11-26] MEDS: budesonide 0.5mg/2ml UD nebule IH SCH ×2 (07:17→18:50)
[2017-11-26] MEDS: potassium Cl 20 mEq SR tablet PO SCH (07:58)
[2017-11-26] MEDS: cloNIDine 0.1 mg tablet PO SCH ×2 (07:58→19:56)
[2017-11-26] MEDS: atorvastatin 20mg tablet PO SCH (07:58)
[2017-11-26] MEDS: clopidogrel 75mg tablet PO SCH (07:58)
[2017-11-26] MEDS: pantoprazole 40mg Tablet.DR PO SCH (07:58)
[2017-11-26] MEDS: enoxaparin 30mg/0.3ml syringe SQ SCH ×2 (07:59→19:56)
[2017-11-26] MEDS: hydrALAZINE 25 MG tablet PO SCH ×2 (07:59→19:56)
[2017-11-26] MEDS: furosemide 40mg/4ml inj IV SCH ×2 (07:59→19:56)
[2017-11-26] MEDS: levoFLOXACIN-Levaquin 750MG/D5 150 ML IV SCH (08:00)
[2017-11-26] MEDS: methylPREDNISolone sod succ 125mg/2ml vial IV SCH (08:00)
[2017-11-26] MEDS: triamcinolone acet 0.1% cream 15gm TP SCH ×2 (08:00→20:00)
[2017-11-26] MEDS: insulin Lispro (HumaLOG) vial - multi-dose SQ SCH ×3 (09:19→18:58)
[2017-11-26 11:00] VITALS: BP 149/72
[2017-11-26] MEDS: HYDROcodone/acetaminophen 10/325mg tab PO PRN ×2 (14:07→19:58)
[2017-11-26 18:30] VITALS: BP 159/80
[2017-11-26] MEDS: methylPREDNISolone sod succ/PF 40mg inj. IV SCH (19:55)
[2017-11-26] MEDS: lactobacillus rhamnosus 10,000 MMU CELLS/CAPSULE PO SCH (19:56)
[2017-11-26] MEDS: insulin glargine (Lantus) pen - multi-dose SQ SCH (21:23)
[2017-11-26] MEDS: tolterodine 2mg SR capsule (24hr) PO SCH (21:26)
[2017-11-26] MEDS: amLODIPine 5mg tablet PO SCH (21:26)
[2017-11-26 22:49] VITALS: BP 135/63
[2017-11-27] VITALS: BP 143/60
[2017-11-27] MEDS: ipratropium/albuterol 3ml nebule NEB SCH ×4 (02:58→15:21)
[2017-11-27 05:33] LABS: BASOPHILS % (AUTO) 0 % (0-1); EOSINOPHILS # (AUTO) 0.1 X10'3 (0-0.9); EOSINOPHILS % (AUTO) 0.6 % (0-6); HEMATOCRIT 34.6 % (35.0-45.0); HEMOGLOBIN 10.8 g/dl (12.0-16.0); LYMPHOCYTES # (AUTO) 0.3 X10'3 (1.1-4.8); LYMPHOCYTES % (AUTO) 3.1 % (21-51); MEAN CORPUSCULAR HEMOGLOBIN 24.3 PG (27.0-31.0); MEAN CORPUSCULAR HGB CONC 31.2 % (33.0-36.5); MEAN CORPUSCULAR VOLUME 77.8 FL (78-98); MEAN PLATELET VOLUME 9.1 FL (7.4-10.4); MONOCYTES # (AUTO) 0.4 X10'3 (0-0.9); MONOCYTES % (AUTO) 3.3 % (2-12); NEUTROPHILS # (AUTO) 10.3 X10'3 (1.8-7.7); PLATELET COUNT 284 X10'3 (140-440); RED BLOOD COUNT 4.45 X10'6 (4.20-5.60); RED CELL DISTRIBUTION WIDTH 16.6 % (11.5-14.5); WHITE BLOOD COUNT 11.1 X10'3 (4.5-11.0)
[2017-11-27 06:14] LABS: ALBUMIN 2.4 G/DL (3.4-5.0); ANION GAP 7 (8-16); BLOOD UREA NITROGEN 17 MG/DL (7-18); CALCIUM 9.5 MG/DL (8.5-10.1); CHLORIDE 97 MMOL/L (99-107); CREATININE 0.68 MG/DL (0.40-0.90); GLUCOSE 237 MG/DL (70-104); MAGNESIUM 1.8 MG/DL (1.5-2.4); PHOSPHORUS 3.6 MG/DL (2.3-4.5); POTASSIUM 3.7 MMOL/L (3.5-5.1); SODIUM 138 MMOL/L (135-145); TOTAL CARBON DIOXIDE 34.3 MMOL/L (24-32); eGFR 83 ML/MIN
[2017-11-27] MEDS: budesonide 0.5mg/2ml UD nebule IH SCH (06:49)
[2017-11-27 08:00] VITALS: BP 177/69
[2017-11-27] MEDS: triamcinolone acet 0.1% cream 15gm TP SCH (08:00)
[2017-11-27] MEDS: clopidogrel 75mg tablet PO SCH (08:05)
[2017-11-27] MEDS: cloNIDine 0.1 mg tablet PO SCH (08:05)
[2017-11-27] MEDS: atorvastatin 20mg tablet PO SCH (08:05)
[2017-11-27] MEDS: hydrALAZINE 25 MG tablet PO SCH (08:05)
[2017-11-27] MEDS: potassium Cl 20 mEq SR tablet PO SCH (08:05)
[2017-11-27] MEDS: pantoprazole 40mg Tablet.DR PO SCH (08:05)
[2017-11-27] MEDS: lactobacillus rhamnosus 10,000 MMU CELLS/CAPSULE PO SCH (08:05)
[2017-11-27] MEDS: methylPREDNISolone sod succ/PF 40mg inj. IV SCH (08:06)
[2017-11-27] MEDS: enoxaparin 30mg/0.3ml syringe SQ SCH (08:06)
[2017-11-27] MEDS: insulin Lispro (HumaLOG) vial - multi-dose SQ SCH ×2 (09:24→13:27)
[2017-11-27] MEDS: levoFLOXACIN-Levaquin 750MG/D5 150 ML IV SCH (10:01)
[2017-11-27] MEDS: furosemide 40mg/4ml inj IV SCH (10:01)
[2017-11-27 11:00] VITALS: BP 139/71
[2017-11-27] MEDS ORDERED: HYDR-3965 PO (11:23)
[2017-11-27] MEDS ORDERED: PRED10TA23 PO (12:49)
[2017-11-27] MEDS ORDERED: LEVO500T89 PO (12:49)
== END 2017-11-27 16:27 | disposition home or self-care (01) | DRG 353 ==
LOC: PAS 05:55 → SUR 3N 09:19
PROVIDERS: ADMIT Surgery; ATTEND Family Medicine
PROC: 0WUF0JZ Supplement Abdominal Wall with Synthetic Substitute, Open Approach (ICD-10-PCS; principal; 2017-11-24 08:33)
DX: K43.9 Ventral hernia without obstruction or gangrene (principal); I50.33 Acute on chronic diastolic (congestive) heart failure; J18.9 Pneumonia, unspecified organism; I21.A1 Myocardial infarction type 2; J96.91 Respiratory failure, unspecified with hypoxia; J44.1 Chronic obstructive pulmonary disease with (acute) exacerbation; J44.0 Chronic obstructive pulmonary disease with (acute) lower respiratory infection; L03.115 Cellulitis of right lower limb; L03.116 Cellulitis of left lower limb; E66.9 Obesity, unspecified; E11.9 Type 2 diabetes mellitus without complications; I11.0 Hypertensive heart disease with heart failure; I48.91 Unspecified atrial fibrillation; Z60.2 Problems related to living alone; Z90.710 Acquired absence of both cervix and uterus; Z90.49 Acquired absence of other specified parts of digestive tract; Z93.3 Colostomy status; Z99.81 Dependence on supplemental oxygen; Z88.2 Allergy status to sulfonamides; Z88.1 Allergy status to other antibiotic agents; Z88.6 Allergy status to analgesic agent; Z79.899 Other long term (current) drug therapy; Z87.891 Personal history of nicotine dependence; Z85.048 Personal history of other malignant neoplasm of rectum, rectosigmoid junction, and anus; Z82.5 Family history of asthma and other chronic lower respiratory diseases; Z82.3 Family history of stroke; Z68.33 Body mass index [BMI] 33.0-33.9, adult
CPT/HCPCS: 36415; 71045; 71046; 80048; 80053; 81001; 82948; 83036; 83735; 83880; 84100; 84132; 84484; 85025; 85610; 85730; 86885; 86900; 86901; 88302; 93005; 93306; 94640; 94760; A6449; A7000; C1713; C1781; G0378; J0131; J0690; J1650; J1815; J1940; J1956; J2001; J2250; J2270; J2405; J2704; J2710; J2920; J2930; J3010; J3490; J7120; J7626

== ENCOUNTER 2018-01-27 20:38 | Inpatient (IN) | payer MEDICARE, OTHER ==
[~2018-01-27] VITALS: Ht 154.9 cm; Wt 79.1 kg
[~2018-01-27 20:38] MED LIST changes: -AZIT-72 PO; -albuterol 2.5 MG/3 ML nebule NEB ONE; -cefazolin/dext.iso 2gm/100 ML IV ONE; -famotidine 20mg tablet PO ONE
[2018-01-27 21:10] LABS: BASOPHILS % (AUTO) 0.3 % (0-1); EOSINOPHILS # (AUTO) 0.2 X10'3 (0-0.9); HEMATOCRIT 31.9 % (35.0-45.0); HEMOGLOBIN 10.1 g/dl (12.0-16.0); LYMPHOCYTES # (AUTO) 1.6 X10'3 (1.1-4.8); LYMPHOCYTES % (AUTO) 28.4 % (21-51); MEAN CORPUSCULAR HEMOGLOBIN 24.9 PG (27.0-31.0); MEAN CORPUSCULAR HGB CONC 31.5 % (33.0-36.5); MEAN CORPUSCULAR VOLUME 78.9 FL (78-98); MEAN PLATELET VOLUME 8.1 FL (7.4-10.4); MONOCYTES # (AUTO) 0.5 X10'3 (0-0.9); MONOCYTES % (AUTO) 8.2 % (2-12); NEUTROPHILS # (AUTO) 3.5 X10'3 (1.8-7.7); NEUTROPHILS % (AUTO) 60.1 % (42-75); PLATELET COUNT 299 X10'3 (140-440); RED BLOOD COUNT 4.05 X10'6 (4.20-5.60); RED CELL DISTRIBUTION WIDTH 18.4 % (11.5-14.5); WHITE BLOOD COUNT 5.8 X10'3 (4.5-11.0)
[2018-01-27 21:21] LABS: INR 1.1 INR; PARTIAL THROMBOPLASTIN TIME 31 SECONDS (22-32); PROTHROMBIN TIME 10.9 SECONDS (9.0-12.0)
[2018-01-27 21:25] LABS: ALANINE AMINOTRANSFERASE 27 U/L (12-78); ALBUMIN 3.4 G/DL (3.4-5.0); ALBUMIN/GLOBULIN RATIO 0.8 (1.1-1.5); ALKALINE PHOSPHATASE 106 IU/L (46-116); ANION GAP 12 (8-16); ASPARTATE AMINO TRANSFERASE 24 U/L (10-37); BILIRUBIN,TOTAL 0.3 MG/DL (0.1-1.0); BLOOD UREA NITROGEN 16 MG/DL (7-18); BUN/CREATININE RATIO 22.9 (6.6-38.0); CALCIUM 9.7 MG/DL (8.5-10.1); CHLORIDE 101 MMOL/L (99-107); GLUCOSE 161 MG/DL (70-104); MAGNESIUM 1.3 MG/DL (1.5-2.4); SODIUM 142 MMOL/L (135-145); TOTAL CARBON DIOXIDE 29.2 MMOL/L (24-32); TOTAL PROTEIN 7.9 G/DL (6.4-8.2); eGFR 80 ML/MIN
[2018-01-27 21:29] LABS: POTASSIUM 2.7 MMOL/L (3.5-5.1)
[2018-01-27] MEDS ORDERED: methylPREDNISolone sod succ 125mg/2ml vial IV ONE (22:20)
[2018-01-27] MEDS ORDERED: Potassium Cl inj 40 MEQ in normal saline 250ml IV soln 230 ML IV ONE (22:20)
[2018-01-27] MEDS ORDERED: ipratropium 0.5 MG/2.5ML nebule IH ONE (22:20)
[2018-01-27] MEDS ORDERED: Potassium Cl 40 MEQ in NS 500 ML IV ONE (22:30)
[2018-01-27 22:49] LABS: TROPONIN I < 0.04 NG/ML (0.0-0.05)
[2018-01-28] MEDS ORDERED: ondansetron/PF 4mg/2ml inj IV PRN (01:05)
[2018-01-28] MEDS ORDERED: mag hydrox/Alum hydrox/simeth 30ml oral suspension PO PRN (01:05)
[2018-01-28] MEDS ORDERED: acetaminophen 325mg tablet PO PRN (01:05)
[2018-01-28] MEDS ORDERED: magnesium hydroxide 30ml (MOM) UD suspension PO PRN (01:05)
[2018-01-28] MEDS ORDERED: potassium Cl 20 mEq SR tablet PO PRN ×2 (01:05)
[2018-01-28 02:30] VITALS: BP 184/73
[2018-01-28] MEDS: albuterol 2.5 MG/3 ML nebule NEB PRN ×2 (02:54→22:48)
[2018-01-28 03:00] VITALS: BP 157/69
[2018-01-28] MEDS ORDERED: potassium Cl 40MEQ/NS 500ml 500 ML IV PRN ×2 (04:20)
[2018-01-28 05:17] LABS: HEMOGLOBIN A1C 6.6 % (4.5-6.2)
[2018-01-28] MEDS: sucralfate 1gm/10ml UD suspension PO SCH ×4 (07:00→20:24)
[2018-01-28] MEDS: clopidogrel 75mg tablet PO SCH (07:42)
[2018-01-28] MEDS: furosemide 40mg tablet PO SCH (07:42)
[2018-01-28] MEDS: hydrALAZINE 25 MG tablet PO SCH ×2 (07:43→20:24)
[2018-01-28] MEDS: methylPREDNISolone sod succ/PF 40mg inj. IV SCH ×4 (07:43→23:53)
[2018-01-28] MEDS: potassium Cl 20 mEq SR tablet PO SCH (07:43)
[2018-01-28] MEDS: atorvastatin 20mg tablet PO SCH (07:43)
[2018-01-28] MEDS: cloNIDine 0.1 mg tablet PO SCH ×2 (07:43→20:24)
[2018-01-28] MEDS: heparin, porcine 5000 units/ml vial SQ SCH ×3 (07:45→23:53)
[2018-01-28] MEDS ORDERED: BUDESONIDE 0.25 MG/2 ML AMPUL.NEB IH SCH (08:00)
[2018-01-28] MEDS ORDERED: non-formulary drug (Fluticasone/Salmeterol (Advair 250-50 Diskus) 1 PUFFS) INH SCH (08:00)
[2018-01-28] MEDS ORDERED: ipratropium 0.5 MG/2.5ML nebule IH SCH (08:00)
[2018-01-28] MEDS: K and/or MAG REPLACEMENT MC SCH (08:00)
[2018-01-28] MEDS: ipratropium/albuterol 3ml nebule IH SCH ×4 (08:41→18:46)
[2018-01-28] MEDS: budesonide 0.5mg/2ml UD nebule IH SCH ×2 (08:41→18:45)
[2018-01-28 09:05] VITALS: BP 170/80
[2018-01-28] MEDS ORDERED: LIDOcaine 1% 30ml vial 5 ML in potassium Cl 40MEQ/NS 500ml 500 ML IV ONE (10:30)
[2018-01-28] MEDS: magnesium Cl slow-release 64mg tablet PO PRN ×2 (10:51→23:53)
[2018-01-28] MEDS ORDERED: dextrose 50%-water 50ml dispensing syringe IV PRN ×2 (11:05)
[2018-01-28] MEDS ORDERED: MESSAGE TO PHARMACY PO ONE (11:05)
[2018-01-28] MEDS ORDERED: glucagon, human recombinant 1mg kit SUBCUT PRN (11:05)
[2018-01-28] MEDS ORDERED: dextrose ORAL solution 15 GM/59 ML bottle PO PRN ×2 (11:05)
[2018-01-28] MEDS: insulin Lispro (HumaLOG) vial - multi-dose SQ SCH ×3 (13:52→21:07)
[2018-01-28 14:06] LABS: BASOPHILS % (AUTO) 0 % (0-1); EOSINOPHILS % (AUTO) 0 % (0-6); HEMATOCRIT 30.7 % (35.0-45.0); HEMOGLOBIN 9.8 g/dl (12.0-16.0); LYMPHOCYTES # (AUTO) 0.3 X10'3 (1.1-4.8); MEAN CORPUSCULAR HEMOGLOBIN 24.8 PG (27.0-31.0); MEAN CORPUSCULAR HGB CONC 31.8 % (33.0-36.5); MEAN CORPUSCULAR VOLUME 78.1 FL (78-98); MONOCYTES # (AUTO) 0.1 X10'3 (0-0.9); MONOCYTES % (AUTO) 2.7 % (2-12); NEUTROPHILS # (AUTO) 2.1 X10'3 (1.8-7.7); NEUTROPHILS % (AUTO) 85.3 % (42-75); PLATELET COUNT 267 X10'3 (140-440); RED BLOOD COUNT 3.94 X10'6 (4.20-5.60); RED CELL DISTRIBUTION WIDTH 18.6 % (11.5-14.5); WHITE BLOOD COUNT 2.4 X10'3 (4.5-11.0)
[2018-01-28 14:15] LABS: ALBUMIN 3.1 G/DL (3.4-5.0); ANION GAP 10 (8-16); BLOOD UREA NITROGEN 11 MG/DL (7-18); BUN/CREATININE RATIO 16.9 (6.6-38.0); CALCIUM 8.6 MG/DL (8.5-10.1); CHLORIDE 100 MMOL/L (99-107); CREATININE 0.65 MG/DL (0.40-0.90); GLUCOSE 270 MG/DL (70-104); POTASSIUM 3.9 MMOL/L (3.5-5.1); SODIUM 140 MMOL/L (135-145); TOTAL CARBON DIOXIDE 30.1 MMOL/L (24-32); eGFR 87 ML/MIN
[2018-01-28 16:56] LABS: ANISOCYTOSIS 2+; PLATELET ESTIMATE NORMAL; POLYCHROMASIA FEW; TOTAL CELLS COUNTED 100
[2018-01-28 16:57] LABS: ELLIPTOCYTES FEW
[2018-01-28 18:00] VITALS: BP 146/77
[2018-01-28] MEDS: amLODIPine 5mg tablet PO SCH (21:05)
[2018-01-28] MEDS: acetaminophen 325mg tablet PO PRN (21:05)
[2018-01-28] MEDS: pantoprazole 40mg Tablet.DR PO SCH (21:05)
[2018-01-28] MEDS: insulin glargine (Lantus) pen - multi-dose SQ SCH (21:08)
[2018-01-29] VITALS: BP 140/74
[2018-01-29] MEDS: albuterol 2.5 MG/3 ML nebule NEB PRN ×2 (03:15→23:30)
[2018-01-29 05:41] LABS: BASOPHILS % (AUTO) 0 % (0-1); EOSINOPHILS # (AUTO) 0.1 X10'3 (0-0.9); EOSINOPHILS % (AUTO) 1.2 % (0-6); HEMATOCRIT 28.7 % (35.0-45.0); HEMOGLOBIN 9.1 g/dl (12.0-16.0); LYMPHOCYTES # (AUTO) 0.3 X10'3 (1.1-4.8); MEAN CORPUSCULAR HEMOGLOBIN 24.8 PG (27.0-31.0); MEAN CORPUSCULAR HGB CONC 31.8 % (33.0-36.5); MEAN PLATELET VOLUME 8.3 FL (7.4-10.4); MONOCYTES # (AUTO) 0.1 X10'3 (0-0.9); MONOCYTES % (AUTO) 2.1 % (2-12); NEUTROPHILS # (AUTO) 4.1 X10'3 (1.8-7.7); NEUTROPHILS % (AUTO) 89.7 % (42-75); PLATELET COUNT 250 X10'3 (140-440); RED BLOOD COUNT 3.68 X10'6 (4.20-5.60); RED CELL DISTRIBUTION WIDTH 18.2 % (11.5-14.5); WHITE BLOOD COUNT 4.6 X10'3 (4.5-11.0)
[2018-01-29 06:18] LABS: ALANINE AMINOTRANSFERASE 24 U/L (12-78); ALBUMIN 2.9 G/DL (3.4-5.0); ALBUMIN/GLOBULIN RATIO 0.7 (1.1-1.5); ALKALINE PHOSPHATASE 67 IU/L (46-116); ANION GAP 8 (8-16); ASPARTATE AMINO TRANSFERASE 16 U/L (10-37); BILIRUBIN,TOTAL 0.3 MG/DL (0.1-1.0); BLOOD UREA NITROGEN 15 MG/DL (7-18); BUN/CREATININE RATIO 23.1 (6.6-38.0); CALCIUM 8.2 MG/DL (8.5-10.1); CHLORIDE 103 MMOL/L (99-107); CREATININE 0.65 MG/DL (0.40-0.90); GLUCOSE 225 MG/DL (70-104); MAGNESIUM 1.5 MG/DL (1.5-2.4); POTASSIUM 4.3 MMOL/L (3.5-5.1); SODIUM 139 MMOL/L (135-145); TOTAL CARBON DIOXIDE 28.5 MMOL/L (24-32); eGFR 87 ML/MIN
[2018-01-29 07:10] VITALS: BP 168/71
[2018-01-29] MEDS: furosemide 40mg tablet PO SCH (07:33)
[2018-01-29] MEDS: clopidogrel 75mg tablet PO SCH (07:33)
[2018-01-29] MEDS: sucralfate 1gm/10ml UD suspension PO SCH ×4 (07:33→21:54)
[2018-01-29] MEDS: potassium Cl 20 mEq SR tablet PO SCH (07:34)
[2018-01-29] MEDS: atorvastatin 20mg tablet PO SCH (07:34)
[2018-01-29] MEDS: hydrALAZINE 25 MG tablet PO SCH ×2 (07:34→19:18)
[2018-01-29] MEDS: cloNIDine 0.1 mg tablet PO SCH ×2 (07:34→19:18)
[2018-01-29] MEDS: acetaminophen 325mg tablet PO PRN (07:34)
[2018-01-29] MEDS: heparin, porcine 5000 units/ml vial SQ SCH ×3 (07:35→23:37)
[2018-01-29] MEDS: K and/or MAG REPLACEMENT MC SCH (07:35)
[2018-01-29] MEDS: methylPREDNISolone sod succ/PF 40mg inj. IV SCH ×3 (07:35→23:36)
[2018-01-29] MEDS: ipratropium/albuterol 3ml nebule IH SCH ×4 (08:03→19:39)
[2018-01-29] MEDS: budesonide 0.5mg/2ml UD nebule IH SCH ×2 (08:03→19:39)
[2018-01-29] MEDS: insulin Lispro (HumaLOG) vial - multi-dose SQ SCH ×3 (09:27→19:09)
[2018-01-29 11:45] VITALS: BP 162/72
[2018-01-29 19:00] VITALS: BP 188/77
[2018-01-29] MEDS: pantoprazole 40mg Tablet.DR PO SCH (21:55)
[2018-01-29] MEDS: amLODIPine 5mg tablet PO SCH (21:55)
[2018-01-29] MEDS: insulin glargine (Lantus) pen - multi-dose SQ SCH (22:01)
[2018-01-30] VITALS: BP 162/62
[2018-01-30] MEDS: albuterol 2.5 MG/3 ML nebule NEB PRN (03:13)
[2018-01-30 06:27] LABS: ALANINE AMINOTRANSFERASE 29 U/L (12-78); ALBUMIN/GLOBULIN RATIO 0.7 (1.1-1.5); ALKALINE PHOSPHATASE 78 IU/L (46-116); ANION GAP 10 (8-16); ASPARTATE AMINO TRANSFERASE 16 U/L (10-37); BILIRUBIN,TOTAL 0.4 MG/DL (0.1-1.0); BLOOD UREA NITROGEN 20 MG/DL (7-18); BUN/CREATININE RATIO 32.3 (6.6-38.0); CALCIUM 8.7 MG/DL (8.5-10.1); CHLORIDE 101 MMOL/L (99-107); CREATININE 0.62 MG/DL (0.40-0.90); GLUCOSE 195 MG/DL (70-104); MAGNESIUM 1.6 MG/DL (1.5-2.4); POTASSIUM 4.1 MMOL/L (3.5-5.1); SODIUM 139 MMOL/L (135-145); TOTAL CARBON DIOXIDE 28.2 MMOL/L (24-32); TOTAL PROTEIN 7.2 G/DL (6.4-8.2); eGFR > 90 ML/MIN
[2018-01-30 06:28] LABS: BASOPHILS % (AUTO) 0 % (0-1); EOSINOPHILS # (AUTO) 0.1 X10'3 (0-0.9); EOSINOPHILS % (AUTO) 1.3 % (0-6); HEMATOCRIT 29.6 % (35.0-45.0); HEMOGLOBIN 9.4 g/dl (12.0-16.0); LYMPHOCYTES # (AUTO) 0.3 X10'3 (1.1-4.8); LYMPHOCYTES % (AUTO) 4.1 % (21-51); MEAN CORPUSCULAR HGB CONC 31.9 % (33.0-36.5); MEAN CORPUSCULAR VOLUME 78.3 FL (78-98); MEAN PLATELET VOLUME 8.5 FL (7.4-10.4); MONOCYTES # (AUTO) 0.2 X10'3 (0-0.9); MONOCYTES % (AUTO) 1.9 % (2-12); NEUTROPHILS # (AUTO) 7.3 X10'3 (1.8-7.7); NEUTROPHILS % (AUTO) 92.7 % (42-75); PLATELET COUNT 252 X10'3 (140-440); RED BLOOD COUNT 3.78 X10'6 (4.20-5.60); RED CELL DISTRIBUTION WIDTH 18.4 % (11.5-14.5); WHITE BLOOD COUNT 7.9 X10'3 (4.5-11.0)
[2018-01-30 07:00] VITALS: BP 161/72
[2018-01-30] MEDS: budesonide 0.5mg/2ml UD nebule IH SCH (07:53)
[2018-01-30] MEDS: ipratropium/albuterol 3ml nebule IH SCH ×2 (07:53→11:01)
[2018-01-30] MEDS: K and/or MAG REPLACEMENT MC SCH (08:00)
[2018-01-30] MEDS: atorvastatin 20mg tablet PO SCH (08:59)
[2018-01-30] MEDS: sucralfate 1gm/10ml UD suspension PO SCH ×2 (08:59→12:44)
[2018-01-30] MEDS: cloNIDine 0.1 mg tablet PO SCH (09:00)
[2018-01-30] MEDS: potassium Cl 20 mEq SR tablet PO SCH (09:00)
[2018-01-30] MEDS: clopidogrel 75mg tablet PO SCH (09:00)
[2018-01-30] MEDS: furosemide 40mg tablet PO SCH (09:00)
[2018-01-30] MEDS: hydrALAZINE 25 MG tablet PO SCH (09:00)
[2018-01-30] MEDS: methylPREDNISolone sod succ/PF 40mg inj. IV SCH (09:01)
[2018-01-30] MEDS: heparin, porcine 5000 units/ml vial SQ SCH (09:01)
[2018-01-30] MEDS: insulin Lispro (HumaLOG) vial - multi-dose SQ SCH (09:15)
[2018-01-30] MEDS ORDERED: PRED10TA23 PO (12:51)
[2018-01-30 12:59] VITALS: BP 180/65
[2018-01-30 13:07] VITALS: BP 158/69
[2018-01-31] MEDS ORDERED: PRED5TAB PO (22:57)
[2018-01-31] MEDS ORDERED: SUCR1ORA PO (22:57)
== END 2018-01-30 15:32 | disposition home or self-care (01) | DRG 191 ==
LOC: ER 20:39 → ED HOLD 01-28 01:03 → EDBEDREQ 01-28 01:49 → SUR 3N 01-28 02:20
PROVIDERS: ADMIT Internal Medicine; ATTEND Internal Medicine
DX: J44.1 Chronic obstructive pulmonary disease with (acute) exacerbation (principal); L03.116 Cellulitis of left lower limb; E87.6 Hypokalemia; I50.9 Heart failure, unspecified; E78.5 Hyperlipidemia, unspecified; G47.30 Sleep apnea, unspecified; I11.0 Hypertensive heart disease with heart failure; I48.91 Unspecified atrial fibrillation; K21.9 Gastro-esophageal reflux disease without esophagitis; G89.29 Other chronic pain; M19.90 Unspecified osteoarthritis, unspecified site; R06.03 Acute respiratory distress; E11.9 Type 2 diabetes mellitus without complications; Z90.49 Acquired absence of other specified parts of digestive tract; Z90.710 Acquired absence of both cervix and uterus; Z93.3 Colostomy status; Z88.2 Allergy status to sulfonamides; Z88.6 Allergy status to analgesic agent; Z88.8 Allergy status to other drugs, medicaments and biological substances; Z88.1 Allergy status to other antibiotic agents; Z79.4 Long term (current) use of insulin; Z79.899 Other long term (current) drug therapy; Z85.048 Personal history of other malignant neoplasm of rectum, rectosigmoid junction, and anus; Z86.73 Personal history of transient ischemic attack (TIA), and cerebral infarction without residual deficits
CPT/HCPCS: 36415; 71045; 80048; 80053; 82948; 83036; 83735; 83880; 84484; 85025; 85610; 85730; 87070; 93005; 94640; 94760; 96365; 96375; 99285; G0378; J1644; J1815; J2920; J2930; J3480; J3490; J7030; J7626

== ENCOUNTER 2018-01-31 18:19 | Inpatient (IN) | payer MEDICARE, OTHER ==
[~2018-01-31] VITALS: Ht 154.9 cm; Wt 77.7 kg
[~2018-01-31 18:19] MED LIST changes: -BUDE0.5A11 IH; -FLUT1DIS4 INH; +PRED10TA23 PO
[2018-01-31] MEDS ORDERED: normal saline 1000ML IV soln IVB ONE (19:00)
[2018-01-31] MEDS ORDERED: ondansetron/PF 4mg/2ml inj IV ONE (19:00)
[2018-01-31] MEDS ORDERED: pantoprazole 40 MG vial IV ONE (20:10)
[2018-01-31 20:14] LABS: ALANINE AMINOTRANSFERASE 71 U/L (12-78); ALBUMIN 3.5 G/DL (3.4-5.0); ALBUMIN/GLOBULIN RATIO 0.8 (1.1-1.5); ALKALINE PHOSPHATASE 96 IU/L (46-116); ANION GAP 9 (8-16); ASPARTATE AMINO TRANSFERASE 31 U/L (10-37); BILIRUBIN,TOTAL 0.4 MG/DL (0.1-1.0); BLOOD UREA NITROGEN 25 MG/DL (7-18); BUN/CREATININE RATIO 30.1 (6.6-38.0); CALCIUM 8.5 MG/DL (8.5-10.1); CHLORIDE 100 MMOL/L (99-107); CREATININE 0.83 MG/DL (0.40-0.90); GLUCOSE 240 MG/DL (70-104); LIPASE 110 U/L (73-393); POTASSIUM 3.7 MMOL/L (3.5-5.1); SODIUM 141 MMOL/L (135-145); eGFR 66 ML/MIN
[2018-01-31 20:24] LABS: BASOPHILS % (AUTO) 0.3 % (0-1); EOSINOPHILS % (AUTO) 0.9 % (0-6); HEMATOCRIT 33.3 % (35.0-45.0); HEMOGLOBIN 10.5 g/dl (12.0-16.0); LYMPHOCYTES # (AUTO) 0.5 X10'3 (1.1-4.8); MEAN CORPUSCULAR HEMOGLOBIN 24.7 PG (27.0-31.0); MEAN CORPUSCULAR HGB CONC 31.6 % (33.0-36.5); MEAN CORPUSCULAR VOLUME 78.3 FL (78-98); MEAN PLATELET VOLUME 8.8 FL (7.4-10.4); MONOCYTES # (AUTO) 0.2 X10'3 (0-0.9); MONOCYTES % (AUTO) 4.4 % (2-12); NEUTROPHILS # (AUTO) 4.7 X10'3 (1.8-7.7); NEUTROPHILS % (AUTO) 85.4 % (42-75); PLATELET COUNT 295 X10'3 (140-440); RED BLOOD COUNT 4.25 X10'6 (4.20-5.60); RED CELL DISTRIBUTION WIDTH 18.1 % (11.5-14.5); WHITE BLOOD COUNT 5.4 X10'3 (4.5-11.0)
[2018-01-31] MEDS ORDERED: dextrose ORAL solution 15 GM/59 ML bottle PO PRN ×2 (20:45)
[2018-01-31] MEDS ORDERED: acetaminophen 650mg rectal suppository RC PRN (20:45)
[2018-01-31] MEDS ORDERED: acetaminophen 325mg tablet PO PRN (20:45)
[2018-01-31] MEDS ORDERED: bisacodyl 10mg suppository rectal RC PRN (20:45)
[2018-01-31] MEDS ORDERED: mag hydrox/Alum hydrox/simeth 30ml oral suspension PO PRN (20:45)
[2018-01-31] MEDS ORDERED: HYDROcodone/acetaminophen 10/325mg tab PO PRN (20:45)
[2018-01-31] MEDS ORDERED: diphenhydrAMINE 50 mg/ml inj IV PRN (20:45)
[2018-01-31] MEDS ORDERED: magnesium hydroxide 30ml (MOM) UD suspension PO PRN (20:45)
[2018-01-31] MEDS ORDERED: diphenhydrAMINE 25mg capsule PO PRN (20:45)
[2018-01-31] MEDS ORDERED: HYDROmorphone 1 mg/ml syringe IV PRN (20:45)
[2018-01-31] MEDS ORDERED: dextrose 50%-water 50ml dispensing syringe IV PRN ×2 (20:45)
[2018-01-31] MEDS ORDERED: MESSAGE TO PHARMACY PO ONE (20:45)
[2018-01-31] MEDS ORDERED: ondansetron/PF 4mg/2ml inj IV PRN (20:45)
[2018-01-31] MEDS ORDERED: morphine 4 MG/ML inj SYRINge IV PRN (20:45)
[2018-01-31] MEDS ORDERED: glucagon, human recombinant 1mg kit SUBCUT PRN (20:45)
[2018-01-31] MEDS ORDERED: metoclopramide 5 mg/ml inj IV PRN (20:45)
[2018-01-31] MEDS ORDERED: hydrALAZINE 20mg/ml inj. IV PRN (20:50)
[2018-01-31] MEDS ORDERED: temazepam 15mg capsule PO PRN (21:00)
[2018-01-31 21:20] LABS: MAGNESIUM 1.7 MG/DL (1.5-2.4); PHOSPHORUS 3.5 MG/DL (2.3-4.5)
[2018-01-31] MEDS ORDERED: albuterol 2.5 MG/3 ML nebule NEB PRN (21:25)
[2018-01-31] MEDS: normal saline 1000ml 1,000 ML IV SCH (21:35)
[2018-01-31] MEDS ORDERED: PRED5TAB PO (22:57)
[2018-01-31] MEDS ORDERED: SUCR1ORA PO (22:57)
[2018-01-31 23:08] LABS: INR 1.1 INR; PARTIAL THROMBOPLASTIN TIME 28 SECONDS (22-32); PROTHROMBIN TIME 11.4 SECONDS (9.0-12.0)
[2018-02-01] MEDS: albuterol 2.5 MG/3 ML nebule NEB SCH ×7 (02:15→23:17)
[2018-02-01 05:02] LABS: CLARITY,URINE CLEAR (Clear); COLOR,URINE YELLOW (Yellow); GLUCOSE, URINE NEGATIVE (Neg); KETONES,URINE NEGATIVE (Neg); LEUKOCYTE ESTERASE ,URINE NEGATIVE (Neg); NITRITES, URINE NEGATIVE (Neg); OCCULT BLOOD,URINE NEGATIVE (Neg); PROTEIN,URINE TRACE mg/dl (Neg); UROBILINOGEN,URINE 0.2 E.U/dL (0.2-1.0)
[2018-02-01 05:04] LABS: UA COLLECTION TYPE CLN CATCH MIDSTREAM
[2018-02-01 05:18] LABS: BACTERIA,URINE NONE SEEN /HPF (Neg); MUCUS STRANDS FEW /LPF (Neg); RBC,URINE 0-2 /HPF (0-2); SQUAMOUS EPITHELIAL CELL,UR FEW /LPF (FEW); WBC,URINE 0-4 /HPF (0-4)
[2018-02-01] MEDS: acetaminophen 325mg tablet PO PRN ×2 (07:14→18:39)
[2018-02-01] MEDS: docusate sod 100mg capsule PO SCH ×2 (08:00→20:00)
[2018-02-01 08:01] LABS: OCCULT BLOOD STOOL POSITIVE (Neg)
[2018-02-01 10:27] VITALS: BP 209/95
[2018-02-01] MEDS ORDERED: MIDAZolam 5mg/5ml vial ONE (10:34)
[2018-02-01] MEDS ORDERED: fentaNYL/PF 50MCG/1 ML 2ML syringe ONE (10:34)
[2018-02-01] MEDS ORDERED: LIDOcaine Viscous 15ml cup ONE (10:34)
[2018-02-01 10:38] LABS: BASOPHILS % (AUTO) 0.2 % (0-1); EOSINOPHILS # (AUTO) 0.1 X10'3 (0-0.9); EOSINOPHILS % (AUTO) 2.5 % (0-6); HEMATOCRIT 34.2 % (35.0-45.0); HEMOGLOBIN 10.8 g/dl (12.0-16.0); LYMPHOCYTES # (AUTO) 1.2 X10'3 (1.1-4.8); LYMPHOCYTES % (AUTO) 22.7 % (21-51); MEAN CORPUSCULAR HEMOGLOBIN 24.9 PG (27.0-31.0); MEAN CORPUSCULAR HGB CONC 31.5 % (33.0-36.5); MEAN CORPUSCULAR VOLUME 78.8 FL (78-98); MEAN PLATELET VOLUME 7.9 FL (7.4-10.4); MONOCYTES # (AUTO) 0.7 X10'3 (0-0.9); MONOCYTES % (AUTO) 12.2 % (2-12); NEUTROPHILS # (AUTO) 3.3 X10'3 (1.8-7.7); NEUTROPHILS % (AUTO) 62.4 % (42-75); PLATELET COUNT 320 X10'3 (140-440); RED BLOOD COUNT 4.35 X10'6 (4.20-5.60); WHITE BLOOD COUNT 5.4 X10'3 (4.5-11.0)
[2018-02-01 11:08] LABS: ALANINE AMINOTRANSFERASE 69 U/L (12-78); ALBUMIN 3.3 G/DL (3.4-5.0); ALBUMIN/GLOBULIN RATIO 0.8 (1.1-1.5); ALKALINE PHOSPHATASE 74 IU/L (46-116); ANION GAP 4 (8-16); ASPARTATE AMINO TRANSFERASE 34 U/L (10-37); BILIRUBIN,TOTAL 0.5 MG/DL (0.1-1.0); BLOOD UREA NITROGEN 18 MG/DL (7-18); BUN/CREATININE RATIO 23.1 (6.6-38.0); CALCIUM 8.4 MG/DL (8.5-10.1); CHLORIDE 100 MMOL/L (99-107); CREATININE 0.78 MG/DL (0.40-0.90); GLUCOSE 143 MG/DL (70-104); POTASSIUM 3.5 MMOL/L (3.5-5.1); SODIUM 141 MMOL/L (135-145); TOTAL PROTEIN 7.5 G/DL (6.4-8.2); eGFR 71 ML/MIN
[2018-02-01 11:29] VITALS: BP 126/70
[2018-02-01 11:39] VITALS: BP 160/69
[2018-02-01] MEDS ORDERED: PEG 3350/Na sulf,bicarb,Cl/KCl oral sol 4 liter bottle PO ONE (11:40)
[2018-02-01 11:49] VITALS: BP 161/70
[2018-02-01 12:00] VITALS: BP 143/50
[2018-02-01] MEDS: pantoprazole 40 MG vial IV SCH ×2 (12:29→20:05)
--- NOTE | 2018-02-01 18:30 | NUR ---
Patient in room [facility]EN[facility] 356. I have received report from CHECO Peterson and had the opportunity to ask questions and assume patient care. Pt c/o h/a tylenol ordered. Addendum: 02/01/18 at 1907 by Zaheer Voss RN Amended: Links added.
[2018-02-01 19:35] VITALS: BP 167/64
[2018-02-01] MEDS: cloNIDine 0.1 mg tablet PO SCH (20:06)
[2018-02-02] VITALS (15 sets, daily range): BP systolic 149–190; BP diastolic 48–72
[2018-02-02] MEDS: albuterol 2.5 MG/3 ML nebule NEB SCH ×6 (02:58→23:11)
[2018-02-02 05:11] LABS: BASOPHILS % (AUTO) 0.4 % (0-1); EOSINOPHILS # (AUTO) 0.1 X10'3 (0-0.9); EOSINOPHILS % (AUTO) 3.2 % (0-6); HEMATOCRIT 31.3 % (35.0-45.0); HEMOGLOBIN 9.9 g/dl (12.0-16.0); LYMPHOCYTES # (AUTO) 1.1 X10'3 (1.1-4.8); LYMPHOCYTES % (AUTO) 24.4 % (21-51); MEAN CORPUSCULAR HEMOGLOBIN 24.9 PG (27.0-31.0); MEAN CORPUSCULAR HGB CONC 31.7 % (33.0-36.5); MEAN CORPUSCULAR VOLUME 78.5 FL (78-98); MONOCYTES # (AUTO) 0.5 X10'3 (0-0.9); MONOCYTES % (AUTO) 10.9 % (2-12); NEUTROPHILS # (AUTO) 2.7 X10'3 (1.8-7.7); NEUTROPHILS % (AUTO) 61.1 % (42-75); PLATELET COUNT 253 X10'3 (140-440); RED BLOOD COUNT 3.99 X10'6 (4.20-5.60); RED CELL DISTRIBUTION WIDTH 17.8 % (11.5-14.5); WHITE BLOOD COUNT 4.4 X10'3 (4.5-11.0)
[2018-02-02] MEDS: acetaminophen 325mg tablet PO PRN (05:21)
[2018-02-02 05:37] LABS: ALANINE AMINOTRANSFERASE 66 U/L (12-78); ALBUMIN 2.9 G/DL (3.4-5.0); ALBUMIN/GLOBULIN RATIO 0.8 (1.1-1.5); ALKALINE PHOSPHATASE 73 IU/L (46-116); ANION GAP 6 (8-16); ASPARTATE AMINO TRANSFERASE 36 U/L (10-37); BILIRUBIN,TOTAL 0.4 MG/DL (0.1-1.0); BLOOD UREA NITROGEN 13 MG/DL (7-18); CALCIUM 8.3 MG/DL (8.5-10.1); CHLORIDE 103 MMOL/L (99-107); CREATININE 0.62 MG/DL (0.40-0.90); GLUCOSE 138 MG/DL (70-104); POTASSIUM 3.4 MMOL/L (3.5-5.1); SODIUM 144 MMOL/L (135-145); TOTAL CARBON DIOXIDE 34.7 MMOL/L (24-32); TOTAL PROTEIN 6.5 G/DL (6.4-8.2); eGFR > 90 ML/MIN
--- NOTE | 2018-02-02 06:15 | NUR ---
Problems reprioritized. Patient report given, questions answered & plan of care reviewed with CHECO CONSTANTINO. Addendum: 02/02/18 at 0708 by Zaheer Voss RN Amended: Links added.
--- NOTE | 2018-02-02 06:51 | NUR ---
Patient in room [facility]ENIA 356. I have received report from MAN KESSLER and had the opportunity to ask questions and assume patient care.
[2018-02-02] MEDS: pantoprazole 40 MG vial IV SCH (07:47)
[2018-02-02] MEDS: cloNIDine 0.1 mg tablet PO SCH (07:47)
[2018-02-02] MEDS: docusate sod 100mg capsule PO SCH ×2 (07:48→20:00)
[2018-02-02] MEDS ORDERED: potassium Cl 40MEQ/NS 500ml 500 ML IV PRN ×2 (09:35)
[2018-02-02] MEDS ORDERED: magnesium 4gm in 100ml NS 100 ML IV PRN (09:35)
[2018-02-02] MEDS ORDERED: magnesium Cl slow-release 64mg tablet PO PRN (09:35)
[2018-02-02] MEDS ORDERED: potassium Cl 20 mEq SR tablet PO PRN ×2 (09:35)
[2018-02-02] MEDS ORDERED: fentaNYL/PF 50MCG/1 ML 2ML syringe ONE (11:18)
[2018-02-02] MEDS ORDERED: MIDAZolam 5mg/5ml vial ONE (11:19)
--- NOTE | 2018-02-02 18:30 | NUR ---
Patient in room [facility]ENIA 356. I have received report from CHECO CONSTANTINO and had the opportunity to ask questions and assume patient care. Addendum: 02/02/18 at 1917 by Zaheer Voss RN Amended: Links added.
--- NOTE | 2018-02-02 18:55 | NUR ---
Problems reprioritized. Patient report given, questions answered & plan of care reviewed with Ameena KESSLER patient appears stable following colonoscopy.
[2018-02-02] MEDS: pantoprazole 40mg Tablet.DR PO SCH (20:14)
[2018-02-02] MEDS: normal saline 1000ml 1,000 ML IV SCH (20:41)
[2018-02-03] MEDS: albuterol 2.5 MG/3 ML nebule NEB SCH ×6 (03:03→23:16)
[2018-02-03 05:26] LABS: BASOPHILS % (AUTO) 0.2 % (0-1); EOSINOPHILS # (AUTO) 0.2 X10'3 (0-0.9); EOSINOPHILS % (AUTO) 4.3 % (0-6); HEMATOCRIT 31.4 % (35.0-45.0); HEMOGLOBIN 9.8 g/dl (12.0-16.0); LYMPHOCYTES # (AUTO) 1.3 X10'3 (1.1-4.8); MEAN CORPUSCULAR HEMOGLOBIN 24.5 PG (27.0-31.0); MEAN CORPUSCULAR HGB CONC 31.3 % (33.0-36.5); MEAN CORPUSCULAR VOLUME 78.4 FL (78-98); MEAN PLATELET VOLUME 8.3 FL (7.4-10.4); MONOCYTES # (AUTO) 0.6 X10'3 (0-0.9); MONOCYTES % (AUTO) 10.8 % (2-12); NEUTROPHILS # (AUTO) 3.1 X10'3 (1.8-7.7); NEUTROPHILS % (AUTO) 59.7 % (42-75); PLATELET COUNT 253 X10'3 (140-440); RED BLOOD COUNT 4.01 X10'6 (4.20-5.60); RED CELL DISTRIBUTION WIDTH 17.4 % (11.5-14.5); WHITE BLOOD COUNT 5.1 X10'3 (4.5-11.0)
[2018-02-03 05:54] LABS: ALANINE AMINOTRANSFERASE 42 U/L (12-78); ALBUMIN 2.8 G/DL (3.4-5.0); ALBUMIN/GLOBULIN RATIO 0.8 (1.1-1.5); ALKALINE PHOSPHATASE 68 IU/L (46-116); ANION GAP 3 (8-16); ASPARTATE AMINO TRANSFERASE 13 U/L (10-37); BILIRUBIN,TOTAL 0.3 MG/DL (0.1-1.0); BLOOD UREA NITROGEN 14 MG/DL (7-18); BUN/CREATININE RATIO 19.7 (6.6-38.0); CALCIUM 8.6 MG/DL (8.5-10.1); CHLORIDE 102 MMOL/L (99-107); CREATININE 0.71 MG/DL (0.40-0.90); GLUCOSE 154 MG/DL (70-104); MAGNESIUM 1.8 MG/DL (1.5-2.4); POTASSIUM 3.6 MMOL/L (3.5-5.1); SODIUM 140 MMOL/L (135-145); TOTAL CARBON DIOXIDE 35.1 MMOL/L (24-32); TOTAL PROTEIN 6.4 G/DL (6.4-8.2); eGFR 79 ML/MIN
--- NOTE | 2018-02-03 06:12 | NUR ---
Problems reprioritized. Patient report given, questions answered & plan of care reviewed with CHECO SANTIAGO. Addendum: 02/03/18 at 0612 by Zaheer Voss RN Amended: Links added.
--- NOTE | 2018-02-03 07:01 | NUR ---
Patient in room [facility]ENIA 356. I have received report from MAN KESSLER and had the opportunity to ask questions and assume patient care.
[2018-02-03] MEDS: docusate sod 100mg capsule PO SCH ×2 (07:28→19:47)
[2018-02-03] MEDS: pantoprazole 40mg Tablet.DR PO SCH ×2 (07:28→19:47)
--- NOTE | 2018-02-03 07:38 | NUR ---
received call from araceli Salazar reported positive MRSA nasal swab. Reported to DR. Claire. No new orders at this time.
[2018-02-03 08:00] VITALS: BP 183/67
[2018-02-03 12:00] VITALS: BP 157/87
[2018-02-03 18:00] VITALS: BP 176/63
--- NOTE | 2018-02-03 18:40 | NUR ---
Problems reprioritized. Patient report given, questions answered & plan of care reviewed with Jose Enrique KESSLER.
--- NOTE | 2018-02-03 18:41 | NUR ---
Patient in room [facility]ENIA 356. I have received report from CHECO Molina and had the opportunity to ask questions and assume patient care.
[2018-02-03] MEDS: insulin Lispro (HumaLOG) vial - multi-dose SQ SCH (19:45)
[2018-02-03] MEDS: acetaminophen 325mg tablet PO PRN (19:58)
[2018-02-03] MEDS ORDERED: nitroGLYCERIN 0.4mg SUBLingual tab SL PRN (22:10)
[2018-02-03] MEDS ORDERED: morphine 2 MG/ML inj. syringe IV PRN (22:10)
[2018-02-04] VITALS: BP 152/59
[2018-02-04] MEDS: albuterol 2.5 MG/3 ML nebule NEB SCH ×4 (03:06→15:00)
[2018-02-04 06:32] LABS: BASOPHILS % (AUTO) 0.2 % (0-1); EOSINOPHILS # (AUTO) 0.3 X10'3 (0-0.9); EOSINOPHILS % (AUTO) 5.5 % (0-6); HEMATOCRIT 34.8 % (35.0-45.0); HEMOGLOBIN 10.8 g/dl (12.0-16.0); LYMPHOCYTES # (AUTO) 1.2 X10'3 (1.1-4.8); LYMPHOCYTES % (AUTO) 24.4 % (21-51); MEAN CORPUSCULAR HEMOGLOBIN 24.2 PG (27.0-31.0); MEAN CORPUSCULAR HGB CONC 30.9 % (33.0-36.5); MEAN CORPUSCULAR VOLUME 78.2 FL (78-98); MEAN PLATELET VOLUME 8.4 FL (7.4-10.4); MONOCYTES # (AUTO) 0.5 X10'3 (0-0.9); MONOCYTES % (AUTO) 10.6 % (2-12); NEUTROPHILS % (AUTO) 59.3 % (42-75); PLATELET COUNT 279 X10'3 (140-440); RED BLOOD COUNT 4.45 X10'6 (4.20-5.60); RED CELL DISTRIBUTION WIDTH 17.8 % (11.5-14.5); WHITE BLOOD COUNT 5.1 X10'3 (4.5-11.0)
[2018-02-04 06:56] LABS: ALANINE AMINOTRANSFERASE 51 U/L (12-78); ALBUMIN/GLOBULIN RATIO 0.8 (1.1-1.5); ALKALINE PHOSPHATASE 73 IU/L (46-116); ANION GAP 6 (8-16); ASPARTATE AMINO TRANSFERASE 25 U/L (10-37); BILIRUBIN,TOTAL 0.4 MG/DL (0.1-1.0); BLOOD UREA NITROGEN 11 MG/DL (7-18); BUN/CREATININE RATIO 15.7 (6.6-38.0); CALCIUM 9.6 MG/DL (8.5-10.1); CHLORIDE 101 MMOL/L (99-107); GLUCOSE 153 MG/DL (70-104); POTASSIUM 3.6 MMOL/L (3.5-5.1); SODIUM 142 MMOL/L (135-145); TOTAL CARBON DIOXIDE 34.9 MMOL/L (24-32); eGFR 80 ML/MIN
[2018-02-04 06:59] LABS: MAGNESIUM 1.8 MG/DL (1.5-2.4); TROPONIN I 0.04 NG/ML (0.0-0.05)
--- NOTE | 2018-02-04 07:00 | NUR ---
Patient in room [facility]ENIA 356. I have received report from NITZA KESSLER and had the opportunity to ask questions and assume patient care.
[2018-02-04] MEDS ORDERED: clopidogrel 75mg tablet PO SCH (08:00)
[2018-02-04] MEDS: pantoprazole 40mg Tablet.DR PO SCH (08:18)
[2018-02-04] MEDS: docusate sod 100mg capsule PO SCH (08:18)
[2018-02-04] MEDS ORDERED: aspirin 81mg tab.chew PO SCH (08:30)
[2018-02-04] MEDS: insulin Lispro (HumaLOG) vial - multi-dose SQ SCH (09:34)
--- NOTE | 2018-02-04 13:40 | NUR ---
PT DECLINED TO HAVE INSULIN COVERED AFTER LUNCH.
--- NOTE | 2018-02-04 14:13 | NUR ---
D/C INSTRUCTIONS REVIEWED WITH PT. PT HAS NO QUESTIONS AND AGREES WITH D/C. SHE IS WAITING TO HEAR BACK WHEN SHE CAN BE PICKED UP.
--- NOTE | 2018-02-04 15:46 | NUR ---
IV D/C'd cannula intact.
--- NOTE | 2018-02-04 16:19 | NUR ---
PATIENT FAMILY HERE TO PICK PATIENT UP. LEFT WITH ALL BELONGINGS. ESCORTED DOWN TO PRIVATE CAR IN W/C WITH ONE STAFF AND FAMILY AT SIDE.
== END 2018-02-04 16:23 | disposition home health service (06) | DRG 920 ==
LOC: ER 18:20 → ED HOLD 20:41 → SUR 3N 02-01 07:53
PROVIDERS: ADMIT Family Medicine; ATTEND Hospitalist
PROC: 0DJ08ZZ Inspection of Upper Intestinal Tract, Via Natural or Artificial Opening Endoscopic (ICD-10-PCS; principal; 2018-02-01)
PROC: 0DBM8ZZ Excision of Descending Colon, Via Natural or Artificial Opening Endoscopic (ICD-10-PCS; 2018-02-02)
DX: K91.840 Postprocedural hemorrhage of a digestive system organ or structure following a digestive system procedure (principal); J96.10 Chronic respiratory failure, unspecified whether with hypoxia or hypercapnia; I50.32 Chronic diastolic (congestive) heart failure; D12.4 Benign neoplasm of descending colon; D64.9 Anemia, unspecified; G47.33 Obstructive sleep apnea (adult) (pediatric); I11.0 Hypertensive heart disease with heart failure; I48.91 Unspecified atrial fibrillation; G89.29 Other chronic pain; M19.90 Unspecified osteoarthritis, unspecified site; E11.65 Type 2 diabetes mellitus with hyperglycemia; R00.1 Bradycardia, unspecified; J44.9 Chronic obstructive pulmonary disease, unspecified; K21.9 Gastro-esophageal reflux disease without esophagitis; Y83.2 Surgical operation with anastomosis, bypass or graft as the cause of abnormal reaction of the patient, or of later complication, without mention of misadventure at the time of the procedure; Z93.3 Colostomy status; Z99.81 Dependence on supplemental oxygen; Z90.49 Acquired absence of other specified parts of digestive tract; Z90.710 Acquired absence of both cervix and uterus; Z88.2 Allergy status to sulfonamides; Z88.6 Allergy status to analgesic agent; Z88.1 Allergy status to other antibiotic agents; Z88.8 Allergy status to other drugs, medicaments and biological substances; Z79.891 Long term (current) use of opiate analgesic; Z79.02 Long term (current) use of antithrombotics/antiplatelets; Z79.4 Long term (current) use of insulin; Z85.048 Personal history of other malignant neoplasm of rectum, rectosigmoid junction, and anus; Z86.73 Personal history of transient ischemic attack (TIA), and cerebral infarction without residual deficits; Z86.14 Personal history of Methicillin resistant Staphylococcus aureus infection; Z83.3 Family history of diabetes mellitus; Z82.5 Family history of asthma and other chronic lower respiratory diseases; Z82.3 Family history of stroke; Z82.0 Family history of epilepsy and other diseases of the nervous system; Y92.89 Other specified places as the place of occurrence of the external cause
CPT/HCPCS: 36415; 44389; 50555; 70450; 74176; 80053; 81001; 82272; 82948; 83690; 83735; 83880; 84100; 84443; 84484; 85025; 85610; 85730; 86885; 86900; 86901; 87070; 88305; 93005; 94640; 94760; 96361; 96374; 96375; 99152; 99153; 99285; A4620; C9113; G0378; J0360; J2250; J2405; J3010; J7030

== ENCOUNTER 2018-04-11 02:10 | Inpatient (IN) | payer MEDICARE, OTHER | END 2018-04-13 15:13 | disposition home or self-care (01) | LOC: ER 02:10 → ED HOLD 04:55 → PCU 3S 10:50 | DX: I50.33 Acute on chronic diastolic (congestive) heart failure (principal); J96.01 Acute respiratory failure with hypoxia; J18.9 Pneumonia, unspecified organism ==

== ENCOUNTER 2018-04-25 20:03 | Inpatient (IN) | payer MEDICARE, OTHER | END 2018-04-28 15:00 | disposition home or self-care (01) | LOC: ER 20:03 → ED HOLD 04-26 01:18 → ORTHO 4S 04-26 03:10 | DX: I10 Essential (primary) hypertension (principal); I50.33 Acute on chronic diastolic (congestive) heart failure; I48.0 Paroxysmal atrial fibrillation ==

== ENCOUNTER 2018-04-29 04:55 | Inpatient (IN) | payer MEDICARE, OTHER ==
[~2018-04-29] VITALS: Ht 154.9 cm; Wt 77.3 kg
[~2018-04-29 04:55] MED LIST changes: -AMLO10TA PO; +CARV6.253 PO; -FLUC200T PO; +FURO20TA4 PO; -KEN0.1O TP; +LISI10TA4 PO; -PRED10TA23 PO; +PRED5TAB PO; +SUCR1ORA PO; -SUCR1ORA2 PO
[2018-04-29 06:14] LABS: BASOPHILS % (AUTO) 0.3 % (0-1); EOSINOPHILS % (AUTO) 0.4 % (0-6); HEMATOCRIT 30.7 % (35.0-45.0); HEMOGLOBIN 9.5 g/dl (12.0-16.0); LYMPHOCYTES # (AUTO) 0.6 X10'3 (1.1-4.8); LYMPHOCYTES % (AUTO) 8.6 % (21-51); MEAN CORPUSCULAR HEMOGLOBIN 23.7 PG (27.0-31.0); MEAN CORPUSCULAR HGB CONC 31.1 g/dL (33.0-36.5); MEAN CORPUSCULAR VOLUME 76.2 FL (78-98); MEAN PLATELET VOLUME 8.3 FL (7.4-10.4); MONOCYTES # (AUTO) 0.7 X10'3 (0-0.9); MONOCYTES % (AUTO) 9.5 % (2-12); NEUTROPHILS # (AUTO) 6.1 X10'3 (1.8-7.7); NEUTROPHILS % (AUTO) 81.2 % (42-75); PLATELET COUNT 201 X10'3 (140-440); RED BLOOD COUNT 4.02 X10'6 (4.20-5.60); WHITE BLOOD COUNT 7.5 X10'3 (4.5-11.0)
[2018-04-29 06:29] LABS: ALANINE AMINOTRANSFERASE 33 U/L (12-78); ALBUMIN 2.8 G/DL (3.4-5.0); ALBUMIN/GLOBULIN RATIO 0.7 (1.1-1.5); ALKALINE PHOSPHATASE 73 IU/L (46-116); ANION GAP 8 (8-16); ASPARTATE AMINO TRANSFERASE 27 U/L (10-37); BILIRUBIN,TOTAL 0.5 MG/DL (0.1-1.0); BLOOD UREA NITROGEN 27 MG/DL (7-18); BUN/CREATININE RATIO 17.8 (6.6-38.0); CALCIUM 9.3 MG/DL (8.5-10.1); CHLORIDE 99 MMOL/L (99-107); CREATININE 1.52 MG/DL (0.40-0.90); GLUCOSE 208 MG/DL (70-104); POTASSIUM 3.2 MMOL/L (3.5-5.1); SODIUM 138 MMOL/L (135-145); TOTAL CARBON DIOXIDE 30.7 MMOL/L (24-32); eGFR 33 ML/MIN
[2018-04-29 06:31] LABS: INR 1.1 INR; PARTIAL THROMBOPLASTIN TIME 30 SECONDS (22-32); PROTHROMBIN TIME 10.8 SECONDS (9.0-12.0)
[2018-04-29 07:25] LABS: ANISOCYTOSIS 2+; MICROCYTOSIS 1+; PLATELET ESTIMATE NORMAL
[2018-04-29 07:40] LABS: CLARITY,URINE CLEAR (Clear); COLOR,URINE YELLOW (Yellow); GLUCOSE, URINE NEGATIVE (Neg); KETONES,URINE NEGATIVE (Neg); LEUKOCYTE ESTERASE ,URINE NEGATIVE (Neg); NITRITES, URINE NEGATIVE (Neg); OCCULT BLOOD,URINE NEGATIVE (Neg); PH,URINE 7.5 (4.8-8.0); PROTEIN,URINE NEGATIVE (Neg); UROBILINOGEN,URINE 0.2 E.U/dL (0.2-1.0)
[2018-04-29 07:41] LABS: UA COLLECTION TYPE STRAIGHT CATH
[2018-04-29] MEDS ORDERED: normal saline 1000ml 1,000 ML IV SCH (07:41)
[2018-04-29] MEDS ORDERED: magnesium hydroxide 30ml (MOM) UD suspension PO PRN (07:45)
[2018-04-29] MEDS ORDERED: potassium Cl 40MEQ/NS 500ml 500 ML IV PRN ×2 (07:45)
[2018-04-29] MEDS ORDERED: pantoprazole 40 MG vial IV ONE (07:45)
[2018-04-29] MEDS ORDERED: magnesium 2GM in 50ml NS 50 ML IV PRN (07:45)
[2018-04-29] MEDS ORDERED: ondansetron/PF 4mg/2ml inj IV PRN (07:45)
[2018-04-29] MEDS ORDERED: ipratropium/albuterol 3ml nebule NEB PRN (07:45)
[2018-04-29] MEDS ORDERED: magnesium 4gm in 100ml NS 100 ML IV PRN (07:45)
[2018-04-29] MEDS ORDERED: potassium Cl 20 mEq SR tablet PO PRN (07:45)
[2018-04-29] MEDS: K and/or MAG REPLACEMENT MC SCH (08:00)
[2018-04-29] MEDS ORDERED: glucagon, human recombinant 1mg kit SUBCUT PRN (08:00)
[2018-04-29] MEDS ORDERED: MESSAGE TO PHARMACY PO ONE (08:00)
[2018-04-29] MEDS ORDERED: dextrose ORAL solution 15 GM/59 ML bottle PO PRN ×2 (08:00)
[2018-04-29] MEDS ORDERED: dextrose 50%-water 50ml dispensing syringe IV PRN ×2 (08:00)
[2018-04-29] MEDS ORDERED: ipratropium/albuterol 3ml nebule ONE (08:15)
--- NOTE | 2018-04-29 08:40 | NUR ---
called pharmacy to verify gastroview. stated will get verified.
[2018-04-29] MEDS: diatr meglu/diatrizoate 30ml oral sol.-(3 dose) bottle PO SCH ×2 (09:30→11:46)
--- NOTE | 2018-04-29 09:36 | NUR ---
CALLED PHARMACY TO GET IV POTASSIUM REPLACED. STATED WILL MAKE AND BRING DOWN.
--- NOTE | 2018-04-29 11:51 | NUR ---
PER REPORT ROM SUDHIR RN: CT WITH ORAL CONTRAST PENDING FIRST DOSE GASTROGRAFFIN GIVEN BY SUDHIR AT 0930 SECIND DOSE OF 10 ML GASTROGRAFFIN GIVEN BY WITH 240 ML APPLE JUICE
--- NOTE | 2018-04-29 11:52 | NUR ---
PATIENT AXOX4 KAUFMAN, LEFT AC PIV SITE CLEAR WITH NS AT 100 ML AND 10 MEQKCL / HR INFUSING PATIENT WITH COLOSTOMY: DID NOT VISUALIZE STOMA: DARK BAG; PATIENT STATES THAT STOMA WAS PINK LAST NIGHT
[2018-04-29] MEDS ORDERED: MECL-111 PO (13:17)
[2018-04-29] MEDS ORDERED: AMLO10TA4 PO (13:17)
[2018-04-29] MEDS ORDERED: FLUT1DIS4 INH (13:17)
[2018-04-29] MEDS ORDERED: ASCO-23 PO (13:17)
[2018-04-29] MEDS ORDERED: CHOL2000 PO (13:17)
[2018-04-29] MEDS ORDERED: DOCU-20 PO (13:17)
[2018-04-29] MEDS ORDERED: FURO40TA4 PO (13:17)
[2018-04-29] MEDS ORDERED: HYDR28CR14 TOP (13:17)
[2018-04-29] MEDS ORDERED: FERR325T32 PO (13:17)
[2018-04-29] MEDS ORDERED: MULT-955 PO (13:17)
[2018-04-29] MEDS ORDERED: LISI-600 PO (13:17)
[2018-04-29] MEDS ORDERED: CALC600T12 PO (13:17)
--- NOTE | 2018-04-29 13:37 | NUR ---
PATIENT BACK FROM CT SCAN, SUDHIR KESSLER GAVE LAST DOSE OF GASTROGRAFFIN WITH 240 ML JUICE
--- NOTE | 2018-04-29 17:22 | NUR ---
Patient in room ED 2. I have received report from CHECO Schaffer and had the opportunity to ask questions and assume patient care.
[2018-04-29 17:24] LABS: BASOPHILS % (AUTO) 0.4 % (0-1); EOSINOPHILS # (AUTO) 0.1 X10'3 (0-0.9); EOSINOPHILS % (AUTO) 1.6 % (0-6); HEMATOCRIT 32.5 % (35.0-45.0); HEMOGLOBIN 10.1 g/dl (12.0-16.0); LYMPHOCYTES # (AUTO) 1.7 X10'3 (1.1-4.8); MEAN CORPUSCULAR HEMOGLOBIN 23.5 PG (27.0-31.0); MEAN CORPUSCULAR VOLUME 75.8 FL (78-98); MEAN PLATELET VOLUME 8.2 FL (7.4-10.4); MONOCYTES # (AUTO) 0.8 X10'3 (0-0.9); MONOCYTES % (AUTO) 11.4 % (2-12); NEUTROPHILS # (AUTO) 4.5 X10'3 (1.8-7.7); NEUTROPHILS % (AUTO) 62.6 % (42-75); PLATELET COUNT 215 X10'3 (140-440); RED BLOOD COUNT 4.29 X10'6 (4.20-5.60); RED CELL DISTRIBUTION WIDTH 19.6 % (11.5-14.5); WHITE BLOOD COUNT 7.1 X10'3 (4.5-11.0)
[2018-04-29] MEDS ORDERED: non-formulary drug (Alendronate Sodium 1 TAB) PO SCH (17:35)
[2018-04-29] MEDS ORDERED: non-formulary drug (Albuterol Sulfate (Proair Hfa) 2 PUFFS) IH PRN (17:35)
[2018-04-29] MEDS ORDERED: non-formulary drug (Meclizine HCl 1 TAB) PO PRN (17:35)
[2018-04-29] MEDS ORDERED: docusate sod 100mg capsule PO PRN (17:35)
[2018-04-29 17:45] VITALS: BP 179/65
[2018-04-29] MEDS ORDERED: albuterol 2.5 MG/3 ML nebule NEB PRN (17:45)
[2018-04-29] MEDS ORDERED: meclizine 12.5mg tablet PO PRN (17:50)
[2018-04-29 18:00] VITALS: BP 161/54
--- NOTE | 2018-04-29 18:51 | NUR ---
Problems reprioritized. Patient report given, questions answered & plan of care reviewed with CHECO Quispe.
--- NOTE | 2018-04-29 18:52 | NUR ---
Patient in room [facility] 355. I have received report from CHECO Sanchez and had the opportunity to ask questions and assume patient care.
[2018-04-29] MEDS ORDERED: non-formulary drug (Cholecalciferol (Vitamin D3) (Vitamin D-3) 2,000 UNIT) PO SCH (20:00)
[2018-04-29] MEDS ORDERED: non-formulary drug (Fluticasone/Salmeterol (Advair 250-50 Diskus) 1 PUFFS) INH SCH (20:00)
[2018-04-29] MEDS ORDERED: non-formulary drug (Calcium Carbonate (Calcium) 1 TAB) PO SCH (20:00)
[2018-04-29] MEDS: albuterol 2.5 MG/3 ML nebule NEB SCH (20:26)
[2018-04-29] MEDS: BUDESONIDE 0.25 MG/2 ML AMPUL.NEB IH SCH (20:26)
[2018-04-29] MEDS: vitamin D (cholecalciferol) 1,000 unit tablet PO SCH (20:46)
[2018-04-29] MEDS: pantoprazole 40mg Tablet.DR PO SCH (20:47)
[2018-04-29] MEDS: hydrALAZINE 25 MG tablet PO SCH (20:47)
[2018-04-29] MEDS: atorvastatin 20mg tablet PO SCH (20:47)
[2018-04-29] MEDS: calcium carbonate 500mg tablet PO SCH (20:47)
[2018-04-29] MEDS: carvedilol 6.25mg tablet PO SCH (20:48)
[2018-04-29] MEDS: cloNIDine 0.1 mg tablet PO SCH (20:48)
[2018-04-29] MEDS: sucralfate 1gm/10ml UD suspension PO SCH (20:49)
[2018-04-29] MEDS: tolterodine 2mg SR capsule (24hr) PO SCH (20:50)
[2018-04-29] MEDS: insulin glargine (Lantus) pen - multi-dose SQ SCH (21:00)
[2018-04-29] MEDS ORDERED: non-formulary drug (Dexlansoprazole (Dexilant) 1 CAP) PO SCH (21:00)
--- NOTE | 2018-04-29 23:55 | NUR ---
Tele called, said pt had a 14 beat run of V tach. Vitals were taken and were stable. notified. He ordered to do a stat MG and BNP draw, and to replace K.
[2018-04-30] VITALS: BP 123/43
[2018-04-30] MEDS ORDERED: potassium Cl 20 mEq SR tablet PO ONE (00:45)
[2018-04-30 01:34] LABS: BASOPHILS % (AUTO) 0.4 % (0-1); EOSINOPHILS # (AUTO) 0.1 X10'3 (0-0.9); EOSINOPHILS % (AUTO) 2.6 % (0-6); HEMATOCRIT 26.9 % (35.0-45.0); HEMOGLOBIN 8.4 g/dl (12.0-16.0); LYMPHOCYTES # (AUTO) 1.1 X10'3 (1.1-4.8); LYMPHOCYTES % (AUTO) 23.1 % (21-51); MEAN CORPUSCULAR HEMOGLOBIN 23.8 PG (27.0-31.0); MEAN CORPUSCULAR HGB CONC 31.1 g/dL (33.0-36.5); MEAN CORPUSCULAR VOLUME 76.5 FL (78-98); MEAN PLATELET VOLUME 8.1 FL (7.4-10.4); MONOCYTES # (AUTO) 0.5 X10'3 (0-0.9); MONOCYTES % (AUTO) 10.9 % (2-12); PLATELET COUNT 177 X10'3 (140-440); RED BLOOD COUNT 3.51 X10'6 (4.20-5.60); RED CELL DISTRIBUTION WIDTH 19.1 % (11.5-14.5); WHITE BLOOD COUNT 4.8 X10'3 (4.5-11.0)
[2018-04-30 01:45] LABS: ALANINE AMINOTRANSFERASE 30 U/L (12-78); ALBUMIN 2.4 G/DL (3.4-5.0); ALBUMIN/GLOBULIN RATIO 0.7 (1.1-1.5); ALKALINE PHOSPHATASE 60 IU/L (46-116); ANION GAP 4 (8-16); ASPARTATE AMINO TRANSFERASE 20 U/L (10-37); BILIRUBIN,TOTAL 0.3 MG/DL (0.1-1.0); BLOOD UREA NITROGEN 25 MG/DL (7-18); BUN/CREATININE RATIO 23.8 (6.6-38.0); CALCIUM 8.7 MG/DL (8.5-10.1); CHLORIDE 103 MMOL/L (99-107); CREATININE 1.05 MG/DL (0.40-0.90); GLUCOSE 147 MG/DL (70-104); POTASSIUM 3.6 MMOL/L (3.5-5.1); SODIUM 140 MMOL/L (135-145); TOTAL CARBON DIOXIDE 32.9 MMOL/L (24-32); eGFR 50 ML/MIN
[2018-04-30 01:53] LABS: MAGNESIUM 1.6 MG/DL (1.5-2.4)
[2018-04-30 01:59] LABS: ANISOCYTOSIS 2+; ELLIPTOCYTES FEW; MICROCYTOSIS 1+; PLATELET ESTIMATE NORMAL; POIKILOCYTOSIS FEW
--- NOTE | 2018-04-30 06:15 | NUR ---
Patient in room [facility] 355. I have received report from Jose Enrique KESSLER and had the opportunity to ask questions and assume patient care.
--- NOTE | 2018-04-30 06:30 | NUR ---
Problems reprioritized. Patient report given, questions answered & plan of care reviewed with CHECO Green.
--- NOTE | 2018-04-30 06:52 | NUR ---
Patient in room [facility] 355. I have received report from Jose Enrique KESSLER and had the opportunity to ask questions and assume patient care.
[2018-04-30] MEDS: diatr meglu/diatrizoate 30ml oral sol.-(3 dose) bottle PO SCH (07:00)
[2018-04-30] MEDS: vitamin D (cholecalciferol) 1,000 unit tablet PO SCH ×2 (07:23→19:48)
[2018-04-30] MEDS: clopidogrel 75mg tablet PO SCH (07:23)
[2018-04-30] MEDS: amLODIPine 5mg tablet PO SCH (07:24)
[2018-04-30] MEDS: carvedilol 6.25mg tablet PO SCH ×2 (07:25→19:48)
[2018-04-30] MEDS: sucralfate 1gm/10ml UD suspension PO SCH ×4 (07:26→22:15)
[2018-04-30] MEDS: cloNIDine 0.1 mg tablet PO SCH ×2 (07:26→19:46)
[2018-04-30] MEDS: ascorbic acid 500mg tablet PO SCH (07:26)
[2018-04-30] MEDS: hydrALAZINE 25 MG tablet PO SCH ×3 (07:26→22:15)
[2018-04-30] MEDS: multivitamins, therapeutics tablet PO SCH (07:26)
[2018-04-30] MEDS: lisinopril 20mg tablet PO SCH (07:26)
[2018-04-30] MEDS: calcium carbonate 500mg tablet PO SCH ×2 (07:26→19:48)
[2018-04-30] MEDS: ferrous sulfate 325mg tablet PO SCH (07:26)
[2018-04-30 07:35] VITALS: BP 144/66
[2018-04-30] MEDS: BUDESONIDE 0.25 MG/2 ML AMPUL.NEB IH SCH ×2 (07:56→19:46)
[2018-04-30] MEDS: albuterol 2.5 MG/3 ML nebule NEB SCH ×4 (07:57→19:46)
[2018-04-30] MEDS ORDERED: ASCORBIC ACID PO SCH (08:00)
[2018-04-30] MEDS: K and/or MAG REPLACEMENT MC SCH (08:00)
[2018-04-30] MEDS ORDERED: non-formulary drug (Multivitamin (Daily Value) 1 TAB) PO SCH (08:00)
[2018-04-30] MEDS ORDERED: non-formulary drug (Amlodipine Besylate (Norvasc) 1 TAB) PO SCH (08:00)
--- NOTE | 2018-04-30 09:43 | NUR ---
Student documentation: I have reviewed and agree with all interventions, assessments performed and documented by Theodora ARROYO from [facility]. Student Medication Administration: For this medication-pass time frame from 0600 to 1800, all medication were reviewed, dispensed, administered and documented per hospital policy by Theodora ARROYO.
[2018-04-30 12:00] VITALS: BP 125/40
[2018-04-30 14:13] LABS: OCCULT BLOOD STOOL NEGATIVE (Neg)
[2018-04-30] MEDS: potassium Cl 20 mEq SR tablet PO PRN ×2 (14:14→19:46)
[2018-04-30] MEDS: furosemide 40mg tablet PO SCH ×2 (14:15→19:47)
[2018-04-30] MEDS: acetaminophen 325mg tablet PO PRN (14:15)
[2018-04-30] MEDS ORDERED: magnesium Cl slow-release 64mg tablet PO PRN (14:20)
[2018-04-30 18:00] VITALS: BP 119/65
--- NOTE | 2018-04-30 18:04 | NUR ---
Problems reprioritized. Patient report given, questions answered & plan of care reviewed with Jose Enrique KESSLER.
--- NOTE | 2018-04-30 18:05 | NUR ---
Patient in room [facility]ENIA 355. I have received report from CHECO Green and had the opportunity to ask questions and assume patient care.
[2018-04-30] MEDS: insulin Lispro (HumaLOG) vial - multi-dose SQ SCH (19:25)
[2018-04-30] MEDS: insulin glargine (Lantus) pen - multi-dose SQ SCH (22:14)
[2018-04-30] MEDS: tolterodine 2mg SR capsule (24hr) PO SCH (22:15)
[2018-04-30] MEDS: atorvastatin 20mg tablet PO SCH (22:15)
[2018-04-30] MEDS: pantoprazole 40mg Tablet.DR PO SCH (22:15)
[2018-05-01] VITALS: BP 133/44
[2018-05-01] MEDS: acetaminophen 325mg tablet PO PRN (03:45)
[2018-05-01 05:59] LABS: BASOPHILS % (AUTO) 0.3 % (0-1); EOSINOPHILS # (AUTO) 0.1 X10'3 (0-0.9); EOSINOPHILS % (AUTO) 1.9 % (0-6); HEMATOCRIT 29.4 % (35.0-45.0); HEMOGLOBIN 9.1 g/dl (12.0-16.0); LYMPHOCYTES # (AUTO) 1.1 X10'3 (1.1-4.8); LYMPHOCYTES % (AUTO) 13.4 % (21-51); MEAN CORPUSCULAR HEMOGLOBIN 23.8 PG (27.0-31.0); MEAN CORPUSCULAR VOLUME 76.9 FL (78-98); MEAN PLATELET VOLUME 8.2 FL (7.4-10.4); MONOCYTES # (AUTO) 0.8 X10'3 (0-0.9); MONOCYTES % (AUTO) 9.9 % (2-12); NEUTROPHILS % (AUTO) 74.5 % (42-75); PLATELET COUNT 187 X10'3 (140-440); RED BLOOD COUNT 3.82 X10'6 (4.20-5.60); RED CELL DISTRIBUTION WIDTH 18.9 % (11.5-14.5)
--- NOTE | 2018-05-01 06:15 | NUR ---
Problems reprioritized. Patient report given, questions answered & plan of care reviewed with Mehnaz Douglas.
[2018-05-01 07:20] VITALS: BP 138/47
[2018-05-01] MEDS: albuterol 2.5 MG/3 ML nebule NEB SCH ×2 (07:30→11:20)
[2018-05-01] MEDS: BUDESONIDE 0.25 MG/2 ML AMPUL.NEB IH SCH (07:31)
[2018-05-01 07:38] LABS: ALANINE AMINOTRANSFERASE 29 U/L (12-78); ALBUMIN 2.6 G/DL (3.4-5.0); ALBUMIN/GLOBULIN RATIO 0.6 (1.1-1.5); ANION GAP 7 (8-16); ASPARTATE AMINO TRANSFERASE 18 U/L (10-37); BILIRUBIN,TOTAL 0.4 MG/DL (0.1-1.0); BLOOD UREA NITROGEN 19 MG/DL (7-18); BUN/CREATININE RATIO 21.1 (6.6-38.0); CALCIUM 9.9 MG/DL (8.5-10.1); CHLORIDE 102 MMOL/L (99-107); GLUCOSE 163 MG/DL (70-104); MAGNESIUM 1.5 MG/DL (1.5-2.4); POTASSIUM 4.5 MMOL/L (3.5-5.1); SODIUM 141 MMOL/L (135-145); TOTAL CARBON DIOXIDE 32.2 MMOL/L (24-32); TOTAL PROTEIN 6.7 G/DL (6.4-8.2); eGFR 60 ML/MIN
[2018-05-01 07:43] LABS: ALKALINE PHOSPHATASE 70 IU/L (46-116)
[2018-05-01 07:44] LABS: ANISOCYTOSIS 2+; ELLIPTOCYTES FEW; HYPOCHROMASIA 1+; MICROCYTOSIS 1+; PLATELET ESTIMATE NORMAL; POLYCHROMASIA 1+
[2018-05-01] MEDS: sucralfate 1gm/10ml UD suspension PO SCH ×2 (07:57→12:54)
[2018-05-01] MEDS: ascorbic acid 500mg tablet PO SCH (07:57)
[2018-05-01] MEDS: multivitamins, therapeutics tablet PO SCH (07:57)
[2018-05-01] MEDS ORDERED: carVEDilol 3.125mg tablet PO SCH (08:00)
[2018-05-01] MEDS: cloNIDine 0.1 mg tablet PO SCH (08:00)
[2018-05-01] MEDS: K and/or MAG REPLACEMENT MC SCH (08:00)
[2018-05-01] MEDS: lisinopril 20mg tablet PO SCH (08:02)
[2018-05-01] MEDS: hydrALAZINE 25 MG tablet PO SCH ×2 (08:02→12:54)
[2018-05-01] MEDS: clopidogrel 75mg tablet PO SCH (08:02)
[2018-05-01] MEDS: calcium carbonate 500mg tablet PO SCH (08:02)
[2018-05-01] MEDS: ferrous sulfate 325mg tablet PO SCH (08:02)
[2018-05-01] MEDS: vitamin D (cholecalciferol) 1,000 unit tablet PO SCH (08:02)
[2018-05-01] MEDS: furosemide 40mg tablet PO SCH (08:02)
[2018-05-01] MEDS: amLODIPine 5mg tablet PO SCH (08:03)
[2018-05-01] MEDS: insulin Lispro (HumaLOG) vial - multi-dose SQ SCH (09:16)
[2018-05-01] MEDS ORDERED: MESSAGE TO NURSING PO NR (10:00)
[2018-05-01] MEDS ORDERED: COR3.125T PO (12:09)
[2018-05-01] MEDS ORDERED: FURO40TA4 PO (12:09)
--- NOTE | 2018-05-01 14:07 | NUR ---
Patient discharged home with family. Stable and appropriate. All belongings taken from room. Discharge instructions given and reviewed with patient. Medications picked up from pharmacy. new medications called into pharmacy. IV removed, equipment monitor phototypesetting removed.
[2018-05-01 14:11] VITALS: BP 154/53
== END 2018-05-01 14:10 | disposition home health service (06) | DRG 683 ==
LOC: ER 04:56 → ED HOLD 07:41 → SUR 3N 17:29
PROVIDERS: ADMIT Family Medicine; ATTEND Family Medicine
DX: N17.0 Acute kidney failure with tubular necrosis (principal); J96.10 Chronic respiratory failure, unspecified whether with hypoxia or hypercapnia; I50.32 Chronic diastolic (congestive) heart failure; E78.00 Pure hypercholesterolemia, unspecified; F02.80 Dementia in other diseases classified elsewhere, unspecified severity, without behavioral disturbance, psychotic disturbance, mood disturbance, and anxiety; G30.9 Alzheimer's disease, unspecified; G47.33 Obstructive sleep apnea (adult) (pediatric); I11.0 Hypertensive heart disease with heart failure; J44.9 Chronic obstructive pulmonary disease, unspecified; K21.9 Gastro-esophageal reflux disease without esophagitis; M81.0 Age-related osteoporosis without current pathological fracture; Z79.02 Long term (current) use of antithrombotics/antiplatelets; Z79.4 Long term (current) use of insulin; Z79.51 Long term (current) use of inhaled steroids; Z79.899 Other long term (current) drug therapy; Z80.0 Family history of malignant neoplasm of digestive organs; Z82.0 Family history of epilepsy and other diseases of the nervous system; Z82.3 Family history of stroke; Z82.5 Family history of asthma and other chronic lower respiratory diseases; Z83.3 Family history of diabetes mellitus; Z85.048 Personal history of other malignant neoplasm of rectum, rectosigmoid junction, and anus; Z87.891 Personal history of nicotine dependence; Z86.73 Personal history of transient ischemic attack (TIA), and cerebral infarction without residual deficits; Z90.49 Acquired absence of other specified parts of digestive tract; Z90.710 Acquired absence of both cervix and uterus; Z93.3 Colostomy status; Z88.2 Allergy status to sulfonamides; Z88.8 Allergy status to other drugs, medicaments and biological substances; I48.0 Paroxysmal atrial fibrillation; E11.9 Type 2 diabetes mellitus without complications
CPT/HCPCS: 36415; 71045; 74176; 80053; 81003; 82272; 82948; 83735; 83880; 85025; 85610; 85730; 86885; 86900; 86901; 87070; 93005; 94640; 94667; 94760; 99285; C9113; G0378; J1815; J3480; J7030; Q9963

== ENCOUNTER 2018-06-06 13:39 | Inpatient (IN) | payer MEDICARE, OTHER ==
[~2018-06-06] VITALS: Ht 154.9 cm; Wt 68.2 kg
[~2018-06-06 13:39] MED LIST changes: +AMLO10TA4 PO; +ASCO-23 PO; -BENEFIBER PO; +CALC600T12 PO; -CARV6.253 PO; +CHOL2000 PO; +COR3.125T PO; +DOCU-20 PO; +FERR325T32 PO; -FLO44IN IH; +FLUT1DIS4 INH; -FURO-149 PO; -FURO20TA4 PO; +FURO40TA4 PO; +HYDR28CR14 TOP; +LISI-600 PO; -LISI10TA4 PO; +MECL-111 PO; +MULT-955 PO; -PRED5TAB PO; -TIOT18CA7 IH
[2018-06-06] MEDS ORDERED: albuterol 2.5 MG/3 ML nebule CONTNEB PRN ×2 (13:55→16:00)
[2018-06-06] MEDS ORDERED: nitroGLYCERIN 0.4mg/hour patch TD ONE (13:55)
[2018-06-06] MEDS ORDERED: methylPREDNISolone sod succ 125mg/2ml vial IV ONE (13:55)
[2018-06-06 14:07] LABS: BASOPHILS % (AUTO) 0.6 % (0-1); EOSINOPHILS # (AUTO) 0.4 X10'3 (0-0.9); EOSINOPHILS % (AUTO) 6.9 % (0-6); HEMATOCRIT 29.9 % (35.0-45.0); HEMOGLOBIN 9.4 g/dl (12.0-16.0); LYMPHOCYTES # (AUTO) 1.4 X10'3 (1.1-4.8); LYMPHOCYTES % (AUTO) 25.8 % (21-51); MEAN CORPUSCULAR HEMOGLOBIN 24.5 PG (27.0-31.0); MEAN CORPUSCULAR HGB CONC 31.3 g/dL (33.0-36.5); MEAN CORPUSCULAR VOLUME 78.2 FL (78-98); MONOCYTES # (AUTO) 0.4 X10'3 (0-0.9); MONOCYTES % (AUTO) 8.1 % (2-12); NEUTROPHILS # (AUTO) 3.2 X10'3 (1.8-7.7); NEUTROPHILS % (AUTO) 58.6 % (42-75); PLATELET COUNT 218 X10'3 (140-440); RED BLOOD COUNT 3.82 X10'6 (4.20-5.60); RED CELL DISTRIBUTION WIDTH 19.3 % (11.5-14.5); WHITE BLOOD COUNT 5.4 X10'3 (4.5-11.0)
[2018-06-06 14:21] LABS: ALANINE AMINOTRANSFERASE 39 U/L (12-78); ALBUMIN 3.3 G/DL (3.4-5.0); ALBUMIN/GLOBULIN RATIO 0.8 (1.1-1.5); ALKALINE PHOSPHATASE 97 IU/L (46-116); ANION GAP 6 (8-16); ASPARTATE AMINO TRANSFERASE 23 U/L (10-37); BILIRUBIN,TOTAL 0.3 MG/DL (0.1-1.0); BLOOD UREA NITROGEN 21 MG/DL (7-18); BUN/CREATININE RATIO 27.6 (6.6-38.0); CALCIUM 9.2 MG/DL (8.5-10.1); CHLORIDE 105 MMOL/L (99-107); CREATININE 0.76 MG/DL (0.40-0.90); GLUCOSE 142 MG/DL (70-104); SODIUM 141 MMOL/L (135-145); TOTAL CARBON DIOXIDE 29.8 MMOL/L (24-32); TOTAL PROTEIN 7.2 G/DL (6.4-8.2); eGFR 73 ML/MIN
[2018-06-06 14:28] LABS: MAGNESIUM 1.6 MG/DL (1.5-2.4)
[2018-06-06 14:36] LABS: INR 1.1 INR; PARTIAL THROMBOPLASTIN TIME 29 SECONDS (22-32)
[2018-06-06] MEDS ORDERED: TIOT18CA3 INH (14:48)
[2018-06-06] MEDS ORDERED: CARV-49 PO (14:48)
[2018-06-06] MEDS ORDERED: TOLT4CAP PO (14:48)
[2018-06-06] MEDS ORDERED: FLUT100D2 INH (14:48)
[2018-06-06] MEDS ORDERED: FURO-150 PO (14:48)
--- NOTE | 2018-06-06 15:35 | NUR ---
continuous neb completed
[2018-06-06] MEDS ORDERED: ondansetron/PF 4mg/2ml inj IV PRN (16:15)
[2018-06-06] MEDS ORDERED: acetaminophen 325mg tablet PO PRN (16:15)
[2018-06-06] MEDS ORDERED: mag hydrox/Alum hydrox/simeth 30ml oral suspension PO PRN (16:15)
[2018-06-06] MEDS ORDERED: magnesium hydroxide 30ml (MOM) UD suspension PO PRN (16:15)
[2018-06-06] MEDS ORDERED: doxycycline inj 100 MG in normal saline 100ml IV soln 100 ML IV ONE (16:24)
[2018-06-06 17:10] VITALS: BP 180/75
--- NOTE | 2018-06-06 17:59 | NUR ---
Margaux Greenfield regarding high BP reading SBP 180 when patient came here to the unit Addendum: 06/06/18 at 1800 by Tg Tucker RN Patient was given Nitropatch at ER
--- NOTE | 2018-06-06 18:13 | NUR ---
Problems reprioritized. Patient report given, questions answered & plan of care reviewed with Genoveva KESSLER.
[2018-06-06] MEDS ORDERED: ipratropium/albuterol 3ml nebule IH PRN (18:25)
[2018-06-06] MEDS ORDERED: docusate sod 100mg capsule PO PRN (18:25)
[2018-06-06] MEDS ORDERED: hydrALAZINE 20mg/ml inj. IV PRN (18:25)
[2018-06-06] MEDS ORDERED: non-formulary drug (Albuterol Sulfate (Proair Hfa) 2 PUFFS) IH PRN (18:25)
--- NOTE | 2018-06-06 18:30 | NUR ---
Patient in room [facility]ENIA 360. I have received report from Tg KESSLER and had the opportunity to ask questions and assume patient care.
[2018-06-06 19:00] VITALS: BP 185/67
[2018-06-06] MEDS: ipratropium/albuterol 3ml nebule NEB SCH ×2 (19:04→23:04)
[2018-06-06] MEDS: budesonide 0.5mg/2ml UD nebule IH SCH (20:00)
[2018-06-06] MEDS ORDERED: FLUTICASONE PROPIONATE INH SCH (20:00)
[2018-06-06] MEDS ORDERED: budesonide 0.5mg/2ml UD nebule IH SCH (20:00)
[2018-06-06] MEDS: carvedilol 6.25mg tablet PO SCH (20:46)
[2018-06-06] MEDS: hydrALAZINE 25 MG tablet PO SCH (20:46)
[2018-06-06] MEDS: oxybutynin 5mg tablet PO SCH (20:46)
[2018-06-06] MEDS: furosemide 20 MG/2 ML vial IV SCH (20:46)
[2018-06-06] MEDS: sucralfate 1gm/10ml UD suspension PO SCH (20:46)
[2018-06-06] MEDS: cloNIDine 0.1 mg tablet PO SCH (20:46)
[2018-06-06] MEDS: atorvastatin 20mg tablet PO SCH (20:47)
[2018-06-06] MEDS: pantoprazole 40mg Tablet.DR PO SCH (20:47)
[2018-06-06] MEDS: insulin glargine (Lantus) pen - multi-dose SQ SCH (22:47)
[2018-06-07] VITALS: BP 145/58
[2018-06-07] MEDS: ipratropium/albuterol 3ml nebule NEB SCH ×6 (03:04→23:05)
--- NOTE | 2018-06-07 05:30 | NUR ---
Called MD with EKG report and read-off ( as well as previous EKG). Md stated as long as no chest pain- no new orders necessary. Patient is sleeping soundly and has not c/o any chest pain thru out NOC shift.
[2018-06-07 06:15] LABS: BASOPHILS % (AUTO) 0.2 % (0-1); EOSINOPHILS % (AUTO) 0.2 % (0-6); HEMATOCRIT 28.7 % (35.0-45.0); HEMOGLOBIN 9.1 g/dl (12.0-16.0); LYMPHOCYTES # (AUTO) 1.2 X10'3 (1.1-4.8); LYMPHOCYTES % (AUTO) 26.9 % (21-51); MEAN CORPUSCULAR HEMOGLOBIN 24.7 PG (27.0-31.0); MEAN CORPUSCULAR HGB CONC 31.6 g/dL (33.0-36.5); MEAN CORPUSCULAR VOLUME 78.2 FL (78-98); MEAN PLATELET VOLUME 8.3 FL (7.4-10.4); MONOCYTES # (AUTO) 0.5 X10'3 (0-0.9); MONOCYTES % (AUTO) 10.2 % (2-12); NEUTROPHILS # (AUTO) 2.9 X10'3 (1.8-7.7); NEUTROPHILS % (AUTO) 62.5 % (42-75); PLATELET COUNT 207 X10'3 (140-440); RED BLOOD COUNT 3.67 X10'6 (4.20-5.60); RED CELL DISTRIBUTION WIDTH 19.5 % (11.5-14.5); WHITE BLOOD COUNT 4.6 X10'3 (4.5-11.0)
[2018-06-07 06:25] LABS: ALBUMIN 2.8 G/DL (3.4-5.0); ANION GAP 5 (8-16); BLOOD UREA NITROGEN 19 MG/DL (7-18); BUN/CREATININE RATIO 28.4 (6.6-38.0); CALCIUM 8.8 MG/DL (8.5-10.1); CHLORIDE 106 MMOL/L (99-107); CREATININE 0.67 MG/DL (0.40-0.90); GLUCOSE 126 MG/DL (70-104); POTASSIUM 3.5 MMOL/L (3.5-5.1); SODIUM 142 MMOL/L (135-145); TROPONIN I < 0.04 NG/ML (0.0-0.05); eGFR 84 ML/MIN
--- NOTE | 2018-06-07 06:35 | NUR ---
Problems reprioritized. Patient report given, questions answered & plan of care reviewed with Meagan KESSLER.
[2018-06-07 07:00] VITALS: BP 132/47
[2018-06-07 07:01] LABS: ANISOCYTOSIS 2+; MICROCYTOSIS 1+; PLATELET ESTIMATE NORMAL
[2018-06-07 07:02] LABS: HYPOCHROMASIA 1+; LARGE PLATELETS FEW
[2018-06-07] MEDS: cloNIDine 0.1 mg tablet PO SCH ×2 (08:00→20:16)
[2018-06-07] MEDS ORDERED: non-formulary drug (Tiotropium Bromide (Spiriva) 1 PUFF) INH SCH (08:00)
[2018-06-07] MEDS: carvedilol 6.25mg tablet PO SCH ×2 (08:00→20:16)
[2018-06-07] MEDS: budesonide 0.5mg/2ml UD nebule IH SCH ×2 (08:27→18:55)
[2018-06-07] MEDS ORDERED: dextrose ORAL solution 15 GM/59 ML bottle PO PRN ×2 (09:55)
[2018-06-07] MEDS ORDERED: glucagon, human recombinant 1mg kit SUBCUT PRN (09:55)
[2018-06-07] MEDS ORDERED: MESSAGE TO PHARMACY PO ONE (09:55)
[2018-06-07] MEDS ORDERED: dextrose 50%-water 50ml dispensing syringe IV PRN ×2 (09:55)
[2018-06-07] MEDS: multivitamins, therapeutics tablet PO SCH (10:14)
[2018-06-07] MEDS: furosemide 20 MG/2 ML vial IV SCH ×2 (10:14→20:15)
[2018-06-07] MEDS: sucralfate 1gm/10ml UD suspension PO SCH ×4 (10:14→20:17)
[2018-06-07] MEDS: potassium Cl 20 mEq SR tablet PO SCH (10:14)
[2018-06-07] MEDS: ferrous sulfate 325mg tablet PO SCH (10:15)
[2018-06-07] MEDS: lisinopril 20mg tablet PO SCH (10:15)
[2018-06-07] MEDS: oxybutynin 5mg tablet PO SCH ×3 (10:16→20:17)
[2018-06-07] MEDS: hydrALAZINE 25 MG tablet PO SCH ×3 (10:17→20:16)
[2018-06-07] MEDS: DOXYCYCLINE 100MG CAPSULE PO SCH ×2 (10:18→20:16)
[2018-06-07] MEDS: insulin Lispro (HumaLOG) vial - multi-dose SQ SCH ×3 (10:41→19:17)
[2018-06-07] MEDS ORDERED: carvedilol 6.25mg tablet PO SCH (10:55)
[2018-06-07 11:00] VITALS: BP 174/65
--- NOTE | 2018-06-07 13:56 | NUR ---
PAGER ID: [phone] MESSAGE: [phone] Ronald Lui pt. would like Tylenol for headache pain. May we have an order? Thanks Meagan [phone]
--- NOTE | 2018-06-07 18:38 | NUR ---
Patient in room [facility]EN[facility] 360. I have received report from Meagan and had the opportunity to ask questions and assume patient care.
--- NOTE | 2018-06-07 18:41 | NUR ---
Pt. sitting up in bed comfortably eating dinner, no pain or complaints at this time. Colostomy recently emptied and wick in place and working. Report given to Amber KESSLER.
[2018-06-07 19:00] VITALS: BP 149/53
[2018-06-07] MEDS: atorvastatin 20mg tablet PO SCH (20:16)
[2018-06-07] MEDS: lactobacillus rhamnosus 10,000 MMU CELLS/CAPSULE PO SCH (20:16)
[2018-06-07] MEDS: pantoprazole 40mg Tablet.DR PO SCH (20:17)
[2018-06-07] MEDS ORDERED: insulin glargine (Lantus) pen - multi-dose SQ SCH (21:00)
[2018-06-07] MEDS: insulin glargine (Lantus) pen - multi-dose SQ SCH (21:30)
[2018-06-08] VITALS: BP 141/63
[2018-06-08] MEDS ORDERED: acetaminophen 325mg tablet PO PRN (00:25)
[2018-06-08] MEDS: ipratropium/albuterol 3ml nebule NEB SCH ×3 (03:07→11:05)
--- NOTE | 2018-06-08 06:02 | NUR ---
I have reviewed and agree with all interventions, assessments performed and documented by CHECO Agustin.
--- NOTE | 2018-06-08 06:03 | NUR ---
Problems reprioritized. Patient report given, questions answered & plan of care reviewed with CHECO Rhodes.
[2018-06-08 06:04] LABS: BASOPHILS % (AUTO) 0.3 % (0-1); EOSINOPHILS # (AUTO) 0.1 X10'3 (0-0.9); EOSINOPHILS % (AUTO) 1.5 % (0-6); HEMATOCRIT 28.8 % (35.0-45.0); HEMOGLOBIN 9.3 g/dl (12.0-16.0); LYMPHOCYTES # (AUTO) 1.4 X10'3 (1.1-4.8); LYMPHOCYTES % (AUTO) 17.5 % (21-51); MEAN CORPUSCULAR HEMOGLOBIN 24.9 PG (27.0-31.0); MEAN CORPUSCULAR HGB CONC 32.1 g/dL (33.0-36.5); MEAN CORPUSCULAR VOLUME 77.5 FL (78-98); MEAN PLATELET VOLUME 8.1 FL (7.4-10.4); MONOCYTES # (AUTO) 0.9 X10'3 (0-0.9); MONOCYTES % (AUTO) 11.1 % (2-12); NEUTROPHILS # (AUTO) 5.4 X10'3 (1.8-7.7); NEUTROPHILS % (AUTO) 69.6 % (42-75); PLATELET COUNT 224 X10'3 (140-440); RED BLOOD COUNT 3.72 X10'6 (4.20-5.60); RED CELL DISTRIBUTION WIDTH 19.1 % (11.5-14.5); WHITE BLOOD COUNT 7.8 X10'3 (4.5-11.0)
[2018-06-08 06:17] LABS: ALBUMIN 2.9 G/DL (3.4-5.0); ANION GAP 7 (8-16); BLOOD UREA NITROGEN 18 MG/DL (7-18); BUN/CREATININE RATIO 27.7 (6.6-38.0); CALCIUM 9.2 MG/DL (8.5-10.1); CHLORIDE 103 MMOL/L (99-107); CREATININE 0.65 MG/DL (0.40-0.90); GLUCOSE 104 MG/DL (70-104); POTASSIUM 3.5 MMOL/L (3.5-5.1); SODIUM 141 MMOL/L (135-145); TOTAL CARBON DIOXIDE 31.4 MMOL/L (24-32); eGFR 87 ML/MIN
[2018-06-08 07:30] VITALS: BP 138/52
[2018-06-08] MEDS: sucralfate 1gm/10ml UD suspension PO SCH ×2 (07:54→13:27)
[2018-06-08] MEDS: carvedilol 6.25mg tablet PO SCH (07:59)
[2018-06-08] MEDS: multivitamins, therapeutics tablet PO SCH (07:59)
[2018-06-08] MEDS: DOXYCYCLINE 100MG CAPSULE PO SCH (07:59)
[2018-06-08] MEDS: ferrous sulfate 325mg tablet PO SCH (07:59)
[2018-06-08] MEDS: budesonide 0.5mg/2ml UD nebule IH SCH (07:59)
[2018-06-08] MEDS: oxybutynin 5mg tablet PO SCH ×2 (08:00→13:28)
[2018-06-08] MEDS: cloNIDine 0.1 mg tablet PO SCH (08:00)
[2018-06-08] MEDS: lactobacillus rhamnosus 10,000 MMU CELLS/CAPSULE PO SCH (08:00)
[2018-06-08] MEDS: potassium Cl 20 mEq SR tablet PO SCH (08:00)
[2018-06-08 08:01] VITALS: BP_SYST 130
[2018-06-08] MEDS: hydrALAZINE 25 MG tablet PO SCH ×2 (08:01→13:27)
[2018-06-08] MEDS: lisinopril 20mg tablet PO SCH (08:01)
[2018-06-08] MEDS: furosemide 20 MG/2 ML vial IV SCH (08:03)
[2018-06-08] MEDS: insulin Lispro (HumaLOG) vial - multi-dose SQ SCH (08:36)
[2018-06-08 09:27] LABS: ANISOCYTOSIS 2+; PLATELET ESTIMATE NORMAL
[2018-06-08 09:28] LABS: MICROCYTOSIS 1+
--- NOTE | 2018-06-08 10:32 | NUR ---
PAGER ID: [phone] MESSAGE: [phone] Ronald Lui What is the plan for this pt? Does she still need IV Lasix? Meagan KESSLER [phone]
[2018-06-08] MEDS ORDERED: PRED20TA PO (10:37)
[2018-06-08] MEDS ORDERED: DOXY100C2 PO (10:37)
--- NOTE | 2018-06-08 13:33 | NUR ---
PT. READY TO DISCHARGE. WAITING ON HER NEIGHBOR TO COME PICK HER UP. HER NEIGHBOR NEEDS TO STOP AND GET GAS.
--- NOTE | 2018-06-08 14:29 | NUR ---
PT. STILL WAITING ON TRANSPORT FOR DISCHARGE.
--- NOTE | 2018-06-08 14:45 | NUR ---
PT. DISCHARGE TO HOME IN A STABLE CONDITION. IV DC'D, PRESSURE BANDAGE APPLIED, NO S/SX OF BLEEDING NOTED. TELE DC'D CLEANED AND RETURNED. PT. DRESSED WITH DEPEND, BELONGINGS WITH PT. ACCOMPANIED BY FAMILY FRIEND AND HOSPITAL STAFF MEMBER TO A PRIVATE VEHICLE TO GO HOME. DISCHARGE PAPERWORK REVIEWED WITH PT. SHE IS AWARE OF HER A1C AND HAS MOST CURRENT LABS. SHE HAS DIABETIC EDUCATION PACKET WITH HER WELL AND WAS ABLE TO ASK ANY QUESTIONS. SHE KNOWS TO FOLLOW UP WITH HER PRIMARY CARE PROVIDER AND THAT CONTACT INFORMATION WAS GIVEN TO HER. [facility] DELIVERED HER PREDNISONE AND ANTIBIOTIC AT BEDSIDE.
== END 2018-06-08 14:31 | disposition home health service (06) | DRG 191 ==
LOC: ER 13:40 → SUR 3N 17:09 → CMPBEDREQ 19:16
PROVIDERS: ADMIT Family Medicine; ATTEND Family Medicine
DX: J44.1 Chronic obstructive pulmonary disease with (acute) exacerbation (principal); J96.10 Chronic respiratory failure, unspecified whether with hypoxia or hypercapnia; I50.9 Heart failure, unspecified; I11.0 Hypertensive heart disease with heart failure; K21.9 Gastro-esophageal reflux disease without esophagitis; M19.90 Unspecified osteoarthritis, unspecified site; G30.9 Alzheimer's disease, unspecified; F02.80 Dementia in other diseases classified elsewhere, unspecified severity, without behavioral disturbance, psychotic disturbance, mood disturbance, and anxiety; E10.9 Type 1 diabetes mellitus without complications; D64.9 Anemia, unspecified; G47.30 Sleep apnea, unspecified; I48.91 Unspecified atrial fibrillation; Z99.81 Dependence on supplemental oxygen; Z93.3 Colostomy status; Z90.49 Acquired absence of other specified parts of digestive tract; Z90.710 Acquired absence of both cervix and uterus; Z88.1 Allergy status to other antibiotic agents; Z88.6 Allergy status to analgesic agent; Z88.8 Allergy status to other drugs, medicaments and biological substances; Z79.4 Long term (current) use of insulin; Z86.73 Personal history of transient ischemic attack (TIA), and cerebral infarction without residual deficits; Z85.048 Personal history of other malignant neoplasm of rectum, rectosigmoid junction, and anus
CPT/HCPCS: 36415; 71045; 80048; 80053; 82948; 83036; 83605; 83735; 83880; 84484; 85025; 85610; 85730; 87040; 87070; 93005; 94640; 94760; 96374; 97110; 97116; 97161; 97530; 99285; G0378; J0360; J1815; J1940; J2930; J3490; J7030; J7626

== ENCOUNTER 2018-10-13 07:53 | Inpatient (IN) | payer MEDICARE, OTHER ==
[~2018-10-13] VITALS: Ht 154.9 cm; Wt 80.0 kg
[~2018-10-13 07:53] MED LIST changes: -ALBU8.5H8 IH; -ALEN35TA32 PO; -AMLO10TA4 PO; -ASCO-23 PO; -CALC600T12 PO; -CHOL2000 PO; -CLON-529 PO; -COR3.125T PO; -DET2LAC PO; +FLUT100D2 INH; +FURO20TA4 PO; -FURO40TA4 PO; -HYDR-4069 PO; -INSU100C4 SQ; -INSU100V9 SQ; -IPRA3AMP31 IH; +IPRA3AMP31 INH; -MECL-111 PO; +TOLT4CAP PO
--- NOTE | 2018-10-13 08:07 | NUR ---
BIB EMS WITH C/O CONSTIPATION, ABD PAIN, AND COLOSTOMY NON-FUNCTIONING FOR THE PAST 24 HOURS. HX RECTAL CA, COPD ON HOME O2, DM, CHF. ALERT AND ORIENTED ON ARRIVAL. IV IN LEFT HAND PER FIELD START.
[2018-10-13] MEDS ORDERED: morphine 4 MG/ML inj SYRINge IV ONE (08:20)
[2018-10-13 09:11] LABS: BASOPHILS % (AUTO) 0.3 % (0-1); EOSINOPHILS # (AUTO) 0.2 X10'3 (0-0.9); EOSINOPHILS % (AUTO) 1.6 % (0-6); HEMATOCRIT 36.5 % (35.0-45.0); HEMOGLOBIN 11.8 g/dl (12.0-16.0); LYMPHOCYTES # (AUTO) 1.2 X10'3 (1.1-4.8); LYMPHOCYTES % (AUTO) 12.7 % (21-51); MEAN CORPUSCULAR HEMOGLOBIN 26.8 PG (27.0-31.0); MEAN CORPUSCULAR HGB CONC 32.2 g/dL (33.0-36.5); MEAN CORPUSCULAR VOLUME 83.3 FL (78-98); MEAN PLATELET VOLUME 8.2 FL (7.4-10.4); MONOCYTES # (AUTO) 0.7 X10'3 (0-0.9); MONOCYTES % (AUTO) 7.4 % (2-12); NEUTROPHILS # (AUTO) 7.4 X10'3 (1.8-7.7); PLATELET COUNT 168 X10'3 (140-440); RED BLOOD COUNT 4.38 X10'6 (4.20-5.60); RED CELL DISTRIBUTION WIDTH 17.5 % (11.5-14.5); WHITE BLOOD COUNT 9.5 X10'3 (4.5-11.0)
[2018-10-13 09:24] LABS: ALANINE AMINOTRANSFERASE 32 U/L (12-78); ALBUMIN 3.5 G/DL (3.4-5.0); ALBUMIN/GLOBULIN RATIO 0.8 (1.1-1.5); ALKALINE PHOSPHATASE 91 IU/L (46-116); ANION GAP 9 (8-16); ASPARTATE AMINO TRANSFERASE 25 U/L (10-37); BILIRUBIN,TOTAL 0.4 MG/DL (0.1-1.0); BLOOD UREA NITROGEN 34 MG/DL (7-18); BUN/CREATININE RATIO 47.2 (6.6-38.0); CALCIUM 9.5 MG/DL (8.5-10.1); CHLORIDE 103 MMOL/L (99-107); CREATININE 0.72 MG/DL (0.40-0.90); GLUCOSE 140 MG/DL (70-104); POTASSIUM 4.2 MMOL/L (3.5-5.1); SODIUM 137 MMOL/L (135-145); TOTAL CARBON DIOXIDE 25.2 MMOL/L (24-32); TOTAL PROTEIN 7.8 G/DL (6.4-8.2); eGFR 77 ML/MIN
[2018-10-13 09:42] LABS: PARTIAL THROMBOPLASTIN TIME 26 SECONDS (22-32)
[2018-10-13] MEDS ORDERED: ondansetron 4mg rapidly disintigrating tab PO ONE (09:45)
[2018-10-13] MEDS ORDERED: ondansetron/PF 4mg/2ml inj IV ONE (09:45)
[2018-10-13] MEDS ORDERED: CARV-50 PO (10:30)
[2018-10-13] MEDS ORDERED: HUM7525 SQ (10:30)
[2018-10-13] MEDS ORDERED: FURO40TA4 PO (10:30)
[2018-10-13] MEDS ORDERED: MULT-933 PO (10:30)
[2018-10-13] MEDS ORDERED: ALBU8.5H8 IH (10:30)
[2018-10-13] MEDS ORDERED: LANTUS SQ (10:30)
[2018-10-13] MEDS ORDERED: HYDR-4069 PO (10:30)
[2018-10-13] MEDS ORDERED: FURO-150 PO (10:30)
[2018-10-13] MEDS ORDERED: CLON-529 PO (10:30)
[2018-10-13] MEDS ORDERED: TIOT18CA3 PO (10:30)
[2018-10-13] MEDS ORDERED: SUCR1TAB PO (11:36)
[2018-10-13] MEDS ORDERED: MESSAGE TO PHARMACY PO ONE (12:15)
[2018-10-13] MEDS ORDERED: ASPI81TA52 PO (12:15)
[2018-10-13] MEDS ORDERED: insulin Lispro (HumaLOG) vial - multi-dose SQ SCH (12:15)
[2018-10-13] MEDS ORDERED: magnesium 2GM in 50ml NS 50 ML IV PRN (12:15)
[2018-10-13] MEDS ORDERED: ondansetron/PF 4mg/2ml inj IV PRN (12:15)
[2018-10-13] MEDS ORDERED: metoclopramide 5 mg/ml inj IV PRN (12:15)
[2018-10-13] MEDS ORDERED: potassium CL 10mEq/100ml bag 100 ML IV PRN ×2 (12:15)
[2018-10-13] MEDS ORDERED: ACET-75 PO (12:15)
[2018-10-13] MEDS ORDERED: morphine 2 MG/ML inj. syringe IV PRN ×2 (12:15)
[2018-10-13] MEDS ORDERED: potassium Cl 20 mEq SR tablet PO PRN (12:15)
[2018-10-13] MEDS ORDERED: FLUT1DIS4 INH (12:15)
[2018-10-13] MEDS ORDERED: magnesium hydroxide 30ml (MOM) UD suspension PO PRN (12:15)
[2018-10-13] MEDS ORDERED: HYDROcodone/acetaminophen 10/325mg tab PO PRN (12:15)
[2018-10-13] MEDS ORDERED: glucagon, human recombinant 1mg kit SUBCUT PRN (12:15)
[2018-10-13] MEDS: K and/or MAG REPLACEMENT MC SCH (12:15)
[2018-10-13] MEDS ORDERED: bisacodyl 10mg suppository rectal RC PRN (12:15)
[2018-10-13] MEDS ORDERED: mag hydrox/Alum hydrox/simeth 30ml oral suspension PO PRN (12:15)
[2018-10-13] MEDS ORDERED: diphenhydrAMINE 25mg capsule PO PRN (12:15)
[2018-10-13] MEDS ORDERED: dextrose 50%-water 50ml dispensing syringe IV PRN ×2 (12:15)
[2018-10-13] MEDS ORDERED: dextrose ORAL solution 15 GM/59 ML bottle PO PRN ×2 (12:15)
[2018-10-13] MEDS ORDERED: acetaminophen 650mg rectal suppository RC PRN (12:15)
[2018-10-13] MEDS ORDERED: ALEN35TA21 PO (12:15)
[2018-10-13] MEDS ORDERED: magnesium 4gm in 100ml NS 100 ML IV PRN (12:15)
[2018-10-13] MEDS ORDERED: acetaminophen 325mg tablet PO PRN (12:15)
[2018-10-13] MEDS ORDERED: SUCR1ORA PO (12:23)
[2018-10-13 12:40] LABS: HEMOGLOBIN A1C 5.9 % (4.5-6.2)
[2018-10-13] MEDS: normal saline 1000ml 1,000 ML IV SCH ×2 (14:22→22:14)
[2018-10-13] MEDS ORDERED: non-formulary drug (Alendronate Sodium 1 TAB) PO SCH (16:50)
[2018-10-13] MEDS ORDERED: non-formulary drug (Albuterol Sulfate (Proair Hfa) 2 PUFFS) IH PRN (16:50)
[2018-10-13] MEDS ORDERED: docusate sod 100mg capsule PO PRN (16:50)
[2018-10-13 17:00] LABS: CLARITY,URINE SLIGHTLY CLOUDY (Clear); COLOR,URINE YELLOW (Yellow); GLUCOSE, URINE NEGATIVE (Neg); KETONES,URINE NEGATIVE (Neg); LEUKOCYTE ESTERASE ,URINE MODERATE (Neg); NITRITES, URINE NEGATIVE (Neg); OCCULT BLOOD,URINE NEGATIVE (Neg); PH,URINE 5.5 (4.8-8.0); PROTEIN,URINE TRACE mg/dl (Neg); UROBILINOGEN,URINE 0.2 E.U/dL (0.2-1.0)
[2018-10-13] MEDS: sucralfate 1gm/10ml UD suspension PO SCH ×2 (17:00→21:00)
[2018-10-13 17:04] LABS: UA COLLECTION TYPE VOIDED
[2018-10-13 17:28] LABS: RBC,URINE NONE SEEN /HPF (0-2); SQUAMOUS EPITHELIAL CELL,UR MODERATE /LPF (FEW)
[2018-10-13 17:29] LABS: WBC CLUMPS,URINE FEW /HPF (NEGATIVE)
[2018-10-13 17:33] LABS: TRANSITIONAL EPI CELLS,URINE FEW /HPF
[2018-10-13 17:34] LABS: BACTERIA,URINE FEW /HPF (Neg)
[2018-10-13] MEDS: albuterol 2.5 MG/3 ML nebule NEB PRN (17:42)
--- NOTE | 2018-10-13 18:05 | NUR ---
dr mahajan notified of patient's bp of 185/66. patient denies any complaints.
[2018-10-13] MEDS ORDERED: hydrALAZINE 20mg/ml inj. IV PRN (18:25)
[2018-10-13 18:28] VITALS: BP 185/66
[2018-10-13 18:49] VITALS: BP 181/69
[2018-10-13 20:00] VITALS: BP 134/44
[2018-10-13] MEDS ORDERED: ipratropium 0.5 MG/2.5ML nebule IH SCH (20:00)
[2018-10-13] MEDS ORDERED: albuterol 2.5 MG/3 ML nebule NEB SCH (20:00)
[2018-10-13] MEDS ORDERED: temazepam 15mg capsule PO PRN (21:00)
[2018-10-13] MEDS: insulin glargine (Lantus) pen - multi-dose SQ SCH (21:00)
[2018-10-13] MEDS: budesonide 0.5mg/2ml UD nebule IH SCH (21:18)
[2018-10-13] MEDS: diatr meglu/diatrizoate 30ml oral sol.-(3 dose) bottle PO SCH (22:04)
[2018-10-13] MEDS: atorvastatin 20mg tablet PO SCH (22:05)
[2018-10-13] MEDS: cloNIDine 0.1 mg tablet PO SCH (22:05)
[2018-10-13] MEDS: HYDROcodone/acetaminophen 5mg/325mg tablet PO PRN (22:05)
[2018-10-13] MEDS: oxybutynin 5mg tablet PO SCH (22:06)
[2018-10-13] MEDS: heparin, porcine 5000 units/ml vial SQ SCH (22:07)
[2018-10-13] MEDS: carvedilol 6.25mg tablet PO SCH (22:11)
[2018-10-13] MEDS: furosemide 40mg tablet PO SCH (22:11)
[2018-10-14] VITALS: BP 153/51
[2018-10-14] MEDS: normal saline 1000ml 1,000 ML IV SCH ×2 (00:48→17:27)
[2018-10-14] MEDS: hydrALAZINE 25 MG tablet PO SCH ×3 (00:53→17:27)
[2018-10-14] MEDS: ipratropium/albuterol 3ml nebule NEB SCH ×3 (02:37→20:43)
[2018-10-14 04:52] LABS: BASOPHILS % (AUTO) 0.2 % (0-1); EOSINOPHILS % (AUTO) 0.4 % (0-6); HEMATOCRIT 34.8 % (35.0-45.0); HEMOGLOBIN 11.3 g/dl (12.0-16.0); LYMPHOCYTES # (AUTO) 1.3 X10'3 (1.1-4.8); LYMPHOCYTES % (AUTO) 15.7 % (21-51); MEAN CORPUSCULAR HEMOGLOBIN 27.2 PG (27.0-31.0); MEAN CORPUSCULAR HGB CONC 32.5 g/dL (33.0-36.5); MEAN CORPUSCULAR VOLUME 83.6 FL (78-98); MEAN PLATELET VOLUME 8.3 FL (7.4-10.4); MONOCYTES # (AUTO) 0.7 X10'3 (0-0.9); MONOCYTES % (AUTO) 8.6 % (2-12); NEUTROPHILS # (AUTO) 6.3 X10'3 (1.8-7.7); NEUTROPHILS % (AUTO) 75.1 % (42-75); PLATELET COUNT 190 X10'3 (140-440); RED BLOOD COUNT 4.17 X10'6 (4.20-5.60); RED CELL DISTRIBUTION WIDTH 17.9 % (11.5-14.5); WHITE BLOOD COUNT 8.4 X10'3 (4.5-11.0)
[2018-10-14 05:13] LABS: ALANINE AMINOTRANSFERASE 28 U/L (12-78); ALBUMIN 2.8 G/DL (3.4-5.0); ALBUMIN/GLOBULIN RATIO 0.8 (1.1-1.5); ALKALINE PHOSPHATASE 66 IU/L (46-116); ANION GAP 6 (8-16); ASPARTATE AMINO TRANSFERASE 18 U/L (10-37); BILIRUBIN,TOTAL 0.5 MG/DL (0.1-1.0); BLOOD UREA NITROGEN 19 MG/DL (7-18); BUN/CREATININE RATIO 26.8 (6.6-38.0); CALCIUM 8.7 MG/DL (8.5-10.1); CHLORIDE 108 MMOL/L (99-107); CHOL/HDL RATIO 2.2 (0.00-4.99); CHOLESTEROL 76 MG/DL (0-200); CREATININE 0.71 MG/DL (0.40-0.90); GLUCOSE 144 MG/DL (70-104); HDL CHOLESTEROL 35 MG/DL (35-60); LDL CHOLESTEROL 32 MG/DL (50-100); MAGNESIUM 1.5 MG/DL (1.5-2.4); PHOSPHORUS 3.5 MG/DL (2.3-4.5); SODIUM 144 MMOL/L (135-145); TOTAL PROTEIN 6.5 G/DL (6.4-8.2); TRIGLYCERIDES 81 MG/DL (20-135); eGFR 79 ML/MIN
--- NOTE | 2018-10-14 06:52 | NUR ---
Patient in room [facility] 340. I have received report from CHECO Lacey and had the opportunity to ask questions and assume patient care.
--- NOTE | 2018-10-14 06:57 | NUR ---
Problems reprioritized. Patient report given, questions answered & plan of care reviewed with Laura KESSLER. Addendum: 10/14/18 at 0658 by Deepthi Sánchez RN Amended: Links added.
[2018-10-14 07:20] VITALS: BP 149/69
[2018-10-14] MEDS: albuterol 2.5 MG/3 ML nebule NEB PRN (07:26)
[2018-10-14] MEDS: budesonide 0.5mg/2ml UD nebule IH SCH ×2 (07:26→20:43)
[2018-10-14] MEDS: ferrous sulfate 325mg tablet PO SCH (07:54)
[2018-10-14] MEDS: lisinopril 10 MG tablet PO SCH (07:54)
[2018-10-14] MEDS: oxybutynin 5mg tablet PO SCH ×2 (07:54→19:50)
[2018-10-14] MEDS: multivitamins, therapeutics tablet PO SCH (07:54)
[2018-10-14] MEDS: carvedilol 6.25mg tablet PO SCH ×2 (07:54→19:52)
[2018-10-14] MEDS: furosemide 40mg tablet PO SCH ×2 (07:54→19:51)
[2018-10-14] MEDS: pantoprazole 40mg Tablet.DR PO SCH (07:55)
[2018-10-14] MEDS: HYDROcodone/acetaminophen 5mg/325mg tablet PO PRN (07:55)
[2018-10-14] MEDS: diatr meglu/diatrizoate 30ml oral sol.-(3 dose) bottle PO SCH ×2 (07:56→09:33)
[2018-10-14] MEDS: heparin, porcine 5000 units/ml vial SQ SCH ×2 (07:56→19:51)
[2018-10-14] MEDS: sucralfate 1gm/10ml UD suspension PO SCH ×4 (07:56→21:46)
[2018-10-14] MEDS: K and/or MAG REPLACEMENT MC SCH (08:00)
[2018-10-14] MEDS ORDERED: non-formulary drug (Multivitamin (One Daily Multivitamin) 1 TAB) PO SCH (08:00)
[2018-10-14] MEDS ORDERED: iohexol 300mg/ml 100ml inj. ONE (10:16)
[2018-10-14 11:00] VITALS: BP 140/51
--- NOTE | 2018-10-14 13:30 | NUR ---
NG tube fell out of left nare. Dr Torres aware, will attempt to replace.
[2018-10-14] MEDS: nystatin 15 GM powder TP SCH ×2 (14:33→21:52)
[2018-10-14 17:28] VITALS: BP 163/63
--- NOTE | 2018-10-14 17:40 | NUR ---
NG tube reinserted into right nare per Dr Torres's order. Pt tolerated well, secured with silk tape. Set to low continuous suction, light brown fluid draining. Will continue to monitor.
--- NOTE | 2018-10-14 18:37 | NUR ---
Patient in room [facility] 340. I have received report from Laura KESSLER and had the opportunity to ask questions and assume patient care.
--- NOTE | 2018-10-14 18:40 | NUR ---
Problems reprioritized. Patient report given, questions answered & plan of care reviewed with CHECO Jewell.
[2018-10-14] MEDS: insulin glargine (Lantus) pen - multi-dose SQ SCH (21:00)
[2018-10-14] MEDS: atorvastatin 20mg tablet PO SCH (21:46)
[2018-10-14] MEDS: cloNIDine 0.1 mg tablet PO SCH (21:47)
[2018-10-14 22:12] VITALS: BP 149/59
[2018-10-15 00:21] VITALS: BP 141/50
[2018-10-15] MEDS: hydrALAZINE 25 MG tablet PO SCH ×3 (00:55→16:23)
[2018-10-15] MEDS: ipratropium/albuterol 3ml nebule NEB SCH ×4 (02:44→20:14)
[2018-10-15] MEDS: normal saline 1000ml 1,000 ML IV SCH ×2 (02:51→14:48)
[2018-10-15 04:48] LABS: BASOPHILS % (AUTO) 0.3 % (0-1); EOSINOPHILS # (AUTO) 0.1 X10'3 (0-0.9); EOSINOPHILS % (AUTO) 1.8 % (0-6); HEMATOCRIT 30.3 % (35.0-45.0); HEMOGLOBIN 9.7 g/dl (12.0-16.0); LYMPHOCYTES # (AUTO) 1.2 X10'3 (1.1-4.8); LYMPHOCYTES % (AUTO) 22.3 % (21-51); MEAN CORPUSCULAR HEMOGLOBIN 27.2 PG (27.0-31.0); MEAN CORPUSCULAR HGB CONC 32.1 g/dL (33.0-36.5); MEAN CORPUSCULAR VOLUME 84.9 FL (78-98); MEAN PLATELET VOLUME 8.5 FL (7.4-10.4); MONOCYTES # (AUTO) 0.6 X10'3 (0-0.9); MONOCYTES % (AUTO) 10.8 % (2-12); NEUTROPHILS # (AUTO) 3.5 X10'3 (1.8-7.7); NEUTROPHILS % (AUTO) 64.8 % (42-75); PLATELET COUNT 144 X10'3 (140-440); RED BLOOD COUNT 3.57 X10'6 (4.20-5.60); WHITE BLOOD COUNT 5.4 X10'3 (4.5-11.0)
[2018-10-15 05:05] LABS: ALANINE AMINOTRANSFERASE 22 U/L (12-78); ALBUMIN 2.5 G/DL (3.4-5.0); ALBUMIN/GLOBULIN RATIO 0.7 (1.1-1.5); ALKALINE PHOSPHATASE 56 IU/L (46-116); ANION GAP 7 (8-16); ASPARTATE AMINO TRANSFERASE 11 U/L (10-37); BILIRUBIN,TOTAL 0.4 MG/DL (0.1-1.0); BLOOD UREA NITROGEN 13 MG/DL (7-18); BUN/CREATININE RATIO 23.6 (6.6-38.0); CALCIUM 8.3 MG/DL (8.5-10.1); CHLORIDE 113 MMOL/L (99-107); CREATININE 0.55 MG/DL (0.40-0.90); GLUCOSE 110 MG/DL (70-104); MAGNESIUM 1.4 MG/DL (1.5-2.4); PHOSPHORUS 3.1 MG/DL (2.3-4.5); POTASSIUM 3.4 MMOL/L (3.5-5.1); SODIUM 147 MMOL/L (135-145); TOTAL CARBON DIOXIDE 27.1 MMOL/L (24-32); TOTAL PROTEIN 5.9 G/DL (6.4-8.2); eGFR > 90 ML/MIN
--- NOTE | 2018-10-15 06:07 | NUR ---
Patient in room [facility] 340. I have received report from CHECO Jewell and had the opportunity to ask questions and assume patient care.
--- NOTE | 2018-10-15 06:08 | NUR ---
Problems reprioritized. Patient report given, questions answered & plan of care reviewed with Laura KESSLER.
[2018-10-15 06:58] VITALS: BP 148/58
[2018-10-15] MEDS: heparin, porcine 5000 units/ml vial SQ SCH ×2 (07:16→20:29)
[2018-10-15] MEDS: sucralfate 1gm/10ml UD suspension PO SCH ×4 (07:16→20:29)
[2018-10-15] MEDS: carvedilol 6.25mg tablet PO SCH ×2 (07:17→20:30)
[2018-10-15] MEDS: multivitamins, therapeutics tablet PO SCH (07:17)
[2018-10-15] MEDS: furosemide 40mg tablet PO SCH ×2 (07:18→20:30)
[2018-10-15] MEDS: oxybutynin 5mg tablet PO SCH ×2 (07:18→20:29)
[2018-10-15] MEDS: magnesium Cl slow-release 64mg tablet PO PRN (07:18)
[2018-10-15] MEDS: potassium Cl 20 mEq SR tablet PO PRN ×3 (07:18→16:57)
[2018-10-15] MEDS: ferrous sulfate 325mg tablet PO SCH (07:18)
[2018-10-15] MEDS: lisinopril 10 MG tablet PO SCH (07:18)
[2018-10-15] MEDS: pantoprazole 40mg Tablet.DR PO SCH (07:18)
[2018-10-15] MEDS: nystatin 15 GM powder TP SCH ×3 (07:19→20:37)
[2018-10-15] MEDS: budesonide 0.5mg/2ml UD nebule IH SCH ×2 (07:35→20:14)
[2018-10-15] MEDS: K and/or MAG REPLACEMENT MC SCH (08:00)
[2018-10-15] MEDS: CefTRIAXone/D5W-Rocephin 1gm 50 ML IV SCH (10:44)
[2018-10-15 11:00] VITALS: BP 173/65
--- NOTE | 2018-10-15 11:51 | NUR ---
NG tube advanced several inches further into stomach. Pt tolerated well.
[2018-10-15] MEDS: albuterol 2.5 MG/3 ML nebule NEB PRN (12:23)
[2018-10-15 18:00] VITALS: BP 144/75
--- NOTE | 2018-10-15 18:24 | NUR ---
Problems reprioritized. Patient report given, questions answered & plan of care reviewed with CHECO Jewell.
--- NOTE | 2018-10-15 18:37 | NUR ---
Patient in room [facility] 340. I have received report from Laura KESSLER and had the opportunity to ask questions and assume patient care.
[2018-10-15] MEDS: atorvastatin 20mg tablet PO SCH (20:30)
[2018-10-15] MEDS: cloNIDine 0.1 mg tablet PO SCH (20:30)
[2018-10-15] MEDS: insulin glargine (Lantus) pen - multi-dose SQ SCH (21:00)
[2018-10-16] MEDS: hydrALAZINE 25 MG tablet PO SCH ×3 (00:27→17:02)
[2018-10-16] MEDS: normal saline 1000ml 1,000 ML IV SCH ×4 (00:29→21:07)
[2018-10-16 00:51] VITALS: BP 140/51
[2018-10-16] MEDS: ipratropium/albuterol 3ml nebule NEB SCH ×4 (02:31→20:12)
[2018-10-16 05:18] LABS: BASOPHILS % (AUTO) 0.3 % (0-1); EOSINOPHILS % (AUTO) 0.9 % (0-6); HEMATOCRIT 29.2 % (35.0-45.0); HEMOGLOBIN 9.6 g/dl (12.0-16.0); LYMPHOCYTES # (AUTO) 1.1 X10'3 (1.1-4.8); MEAN CORPUSCULAR HEMOGLOBIN 27.8 PG (27.0-31.0); MEAN CORPUSCULAR VOLUME 84.1 FL (78-98); MEAN PLATELET VOLUME 8.5 FL (7.4-10.4); MONOCYTES # (AUTO) 0.4 X10'3 (0-0.9); MONOCYTES % (AUTO) 8.5 % (2-12); NEUTROPHILS # (AUTO) 3.4 X10'3 (1.8-7.7); NEUTROPHILS % (AUTO) 68.3 % (42-75); PLATELET COUNT 137 X10'3 (140-440); RED BLOOD COUNT 3.47 X10'6 (4.20-5.60); RED CELL DISTRIBUTION WIDTH 17.9 % (11.5-14.5)
--- NOTE | 2018-10-16 06:05 | NUR ---
Patient in room [facility] 340. I have received report from CHECO Jewell and had the opportunity to ask questions and assume patient care.
[2018-10-16 06:11] LABS: ALANINE AMINOTRANSFERASE 22 U/L (12-78); ALBUMIN 2.4 G/DL (3.4-5.0); ALBUMIN/GLOBULIN RATIO 0.7 (1.1-1.5); ALKALINE PHOSPHATASE 62 IU/L (46-116); ANION GAP 10 (8-16); ASPARTATE AMINO TRANSFERASE 17 U/L (10-37); BILIRUBIN,TOTAL 0.3 MG/DL (0.1-1.0); BLOOD UREA NITROGEN 10 MG/DL (7-18); BUN/CREATININE RATIO 17.5 (6.6-38.0); CHLORIDE 110 MMOL/L (99-107); CREATININE 0.57 MG/DL (0.40-0.90); GLUCOSE 89 MG/DL (70-104); MAGNESIUM 1.4 MG/DL (1.5-2.4); POTASSIUM 3.4 MMOL/L (3.5-5.1); SODIUM 146 MMOL/L (135-145); TOTAL CARBON DIOXIDE 25.7 MMOL/L (24-32); eGFR > 90 ML/MIN
[2018-10-16 06:30] VITALS: BP 114/60
--- NOTE | 2018-10-16 06:36 | NUR ---
Problems reprioritized. Patient report given, questions answered & plan of care reviewed with Olivia RN.
[2018-10-16] MEDS: K and/or MAG REPLACEMENT MC SCH (06:44)
[2018-10-16] MEDS: pantoprazole 40mg Tablet.DR PO SCH (07:42)
[2018-10-16] MEDS: CefTRIAXone/D5W-Rocephin 1gm 50 ML IV SCH (07:42)
[2018-10-16] MEDS: furosemide 40mg tablet PO SCH ×2 (07:42→21:05)
[2018-10-16] MEDS: ferrous sulfate 325mg tablet PO SCH (07:42)
[2018-10-16] MEDS: multivitamins, therapeutics tablet PO SCH (07:42)
[2018-10-16] MEDS: oxybutynin 5mg tablet PO SCH ×2 (07:42→21:05)
[2018-10-16] MEDS: carvedilol 6.25mg tablet PO SCH ×2 (07:42→21:05)
[2018-10-16] MEDS: sucralfate 1gm/10ml UD suspension PO SCH ×4 (07:42→21:03)
[2018-10-16] MEDS: lisinopril 10 MG tablet PO SCH (07:43)
[2018-10-16] MEDS: heparin, porcine 5000 units/ml vial SQ SCH ×2 (07:43→21:04)
[2018-10-16] MEDS: budesonide 0.5mg/2ml UD nebule IH SCH ×2 (07:43→20:12)
[2018-10-16] MEDS: nystatin 15 GM powder TP SCH ×3 (07:44→21:09)
[2018-10-16] MEDS: magnesium Cl slow-release 64mg tablet PO PRN ×2 (07:48→17:03)
[2018-10-16] MEDS: potassium Cl 20 mEq SR tablet PO PRN ×3 (07:48→17:03)
[2018-10-16 11:00] VITALS: BP 167/57
[2018-10-16] MEDS: albuterol 2.5 MG/3 ML nebule NEB PRN (11:40)
[2018-10-16] MEDS ORDERED: magnesium 4gm in 100ml NS 100 ML IV PRN (16:55)
[2018-10-16] MEDS ORDERED: potassium Cl 20 mEq SR tablet PO PRN (16:55)
[2018-10-16] MEDS ORDERED: magnesium 2GM in 50ml NS 50 ML IV PRN (16:55)
[2018-10-16] MEDS ORDERED: potassium CL 10mEq/100ml bag 100 ML IV PRN (16:55)
[2018-10-16 18:00] VITALS: BP 165/55
--- NOTE | 2018-10-16 18:20 | NUR ---
Problems reprioritized. Patient report given, questions answered & plan of care reviewed with CHECO Jewell.
--- NOTE | 2018-10-16 18:46 | NUR ---
Patient in room [facility] 340. I have received report from Olivia KESSLER and had the opportunity to ask questions and assume patient care.
[2018-10-16] MEDS: insulin glargine (Lantus) pen - multi-dose SQ SCH (21:00)
[2018-10-16] MEDS: HYDROcodone/acetaminophen 5mg/325mg tablet PO PRN (21:03)
[2018-10-16] MEDS: cloNIDine 0.1 mg tablet PO SCH (21:04)
[2018-10-16] MEDS: atorvastatin 20mg tablet PO SCH (21:05)
[2018-10-17] MEDS: hydrALAZINE 25 MG tablet PO SCH ×3 (00:27→16:06)
[2018-10-17 00:39] VITALS: BP 142/50
[2018-10-17] MEDS: ipratropium/albuterol 3ml nebule NEB SCH ×4 (02:55→19:01)
[2018-10-17] MEDS: albuterol 2.5 MG/3 ML nebule NEB PRN (02:55)
[2018-10-17 05:08] LABS: BASOPHILS % (AUTO) 0.4 % (0-1); EOSINOPHILS # (AUTO) 0.1 X10'3 (0-0.9); EOSINOPHILS % (AUTO) 2.2 % (0-6); HEMATOCRIT 29.2 % (35.0-45.0); HEMOGLOBIN 9.6 g/dl (12.0-16.0); LYMPHOCYTES # (AUTO) 0.8 X10'3 (1.1-4.8); LYMPHOCYTES % (AUTO) 18.3 % (21-51); MEAN CORPUSCULAR HEMOGLOBIN 27.6 PG (27.0-31.0); MEAN CORPUSCULAR HGB CONC 32.7 g/dL (33.0-36.5); MEAN CORPUSCULAR VOLUME 84.6 FL (78-98); MEAN PLATELET VOLUME 8.5 FL (7.4-10.4); MONOCYTES # (AUTO) 0.5 X10'3 (0-0.9); MONOCYTES % (AUTO) 12.1 % (2-12); NEUTROPHILS # (AUTO) 2.8 X10'3 (1.8-7.7); PLATELET COUNT 140 X10'3 (140-440); RED BLOOD COUNT 3.46 X10'6 (4.20-5.60); RED CELL DISTRIBUTION WIDTH 17.6 % (11.5-14.5); WHITE BLOOD COUNT 4.3 X10'3 (4.5-11.0)
[2018-10-17 05:23] LABS: ALANINE AMINOTRANSFERASE 20 U/L (12-78); ALBUMIN 2.5 G/DL (3.4-5.0); ALBUMIN/GLOBULIN RATIO 0.7 (1.1-1.5); ALKALINE PHOSPHATASE 64 IU/L (46-116); ANION GAP 5 (8-16); ASPARTATE AMINO TRANSFERASE 11 U/L (10-37); BILIRUBIN,TOTAL 0.3 MG/DL (0.1-1.0); BLOOD UREA NITROGEN 4 MG/DL (7-18); CALCIUM 8.2 MG/DL (8.5-10.1); CHLORIDE 109 MMOL/L (99-107); GLUCOSE 117 MG/DL (70-104); MAGNESIUM 1.4 MG/DL (1.5-2.4); PHOSPHORUS 2.5 MG/DL (2.3-4.5); POTASSIUM 3.6 MMOL/L (3.5-5.1); SODIUM 143 MMOL/L (135-145); TOTAL PROTEIN 6.1 G/DL (6.4-8.2); eGFR > 90 ML/MIN
[2018-10-17] MEDS: normal saline 1000ml 1,000 ML IV SCH ×2 (05:56→16:37)
--- NOTE | 2018-10-17 06:10 | NUR ---
Patient in room [facility] 340. I have received report from CHECO Jewell and had the opportunity to ask questions and assume patient care.
[2018-10-17 06:30] VITALS: BP 158/53
[2018-10-17] MEDS: K and/or MAG REPLACEMENT MC SCH (06:49)
[2018-10-17] MEDS: magnesium Cl slow-release 64mg tablet PO PRN ×2 (07:34→16:37)
[2018-10-17] MEDS: ferrous sulfate 325mg tablet PO SCH (07:34)
[2018-10-17] MEDS: multivitamins, therapeutics tablet PO SCH (07:35)
[2018-10-17] MEDS: pantoprazole 40mg Tablet.DR PO SCH (07:35)
[2018-10-17] MEDS: carvedilol 6.25mg tablet PO SCH ×2 (07:35→20:58)
[2018-10-17] MEDS: lisinopril 10 MG tablet PO SCH (07:35)
[2018-10-17] MEDS: furosemide 40mg tablet PO SCH ×2 (07:35→20:58)
[2018-10-17] MEDS: oxybutynin 5mg tablet PO SCH ×2 (07:35→20:58)
[2018-10-17] MEDS: sucralfate 1gm/10ml UD suspension PO SCH ×4 (07:35→20:59)
[2018-10-17] MEDS: heparin, porcine 5000 units/ml vial SQ SCH ×2 (07:35→20:59)
[2018-10-17] MEDS: CefTRIAXone/D5W-Rocephin 1gm 50 ML IV SCH (07:36)
[2018-10-17] MEDS: acetaminophen 325mg tablet PO PRN ×2 (07:43→21:07)
[2018-10-17] MEDS: nystatin 15 GM powder TP SCH ×3 (08:00→22:55)
[2018-10-17] MEDS: budesonide 0.5mg/2ml UD nebule IH SCH ×2 (08:31→19:01)
[2018-10-17 11:30] VITALS: BP 158/62
[2018-10-17 16:07] VITALS: BP 177/64
[2018-10-17] MEDS ORDERED: cloNIDine 0.1 mg tablet PO ONE (18:25)
--- NOTE | 2018-10-17 18:30 | NUR ---
Patient in room [facility] 340. I have received report from BUFFY and had the opportunity to ask questions and assume patient care. ASSUMED CARE OF PT WITH RN STUDENT PEDRO Chapman
[2018-10-17 20:00] VITALS: BP 164/69
[2018-10-17] MEDS: atorvastatin 20mg tablet PO SCH (20:58)
[2018-10-17] MEDS: insulin glargine (Lantus) pen - multi-dose SQ SCH (21:00)
[2018-10-17] MEDS: cloNIDine 0.1 mg tablet PO SCH (22:56)
[2018-10-18] VITALS: BP 144/57
[2018-10-18] MEDS: albuterol 2.5 MG/3 ML nebule NEB PRN (00:09)
[2018-10-18] MEDS: ipratropium/albuterol 3ml nebule NEB SCH ×3 (03:37→13:52)
[2018-10-18 04:50] LABS: BASOPHILS % (AUTO) 0.1 % (0-1); EOSINOPHILS # (AUTO) 0.1 X10'3 (0-0.9); EOSINOPHILS % (AUTO) 2.2 % (0-6); HEMATOCRIT 29.6 % (35.0-45.0); HEMOGLOBIN 9.7 g/dl (12.0-16.0); LYMPHOCYTES # (AUTO) 0.9 X10'3 (1.1-4.8); LYMPHOCYTES % (AUTO) 23.5 % (21-51); MEAN CORPUSCULAR HEMOGLOBIN 27.4 PG (27.0-31.0); MEAN CORPUSCULAR HGB CONC 32.7 g/dL (33.0-36.5); MEAN CORPUSCULAR VOLUME 83.9 FL (78-98); MEAN PLATELET VOLUME 8.5 FL (7.4-10.4); MONOCYTES # (AUTO) 0.6 X10'3 (0-0.9); MONOCYTES % (AUTO) 16.3 % (2-12); NEUTROPHILS # (AUTO) 2.3 X10'3 (1.8-7.7); NEUTROPHILS % (AUTO) 57.9 % (42-75); PLATELET COUNT 148 X10'3 (140-440); RED BLOOD COUNT 3.53 X10'6 (4.20-5.60); RED CELL DISTRIBUTION WIDTH 17.9 % (11.5-14.5)
[2018-10-18 05:02] LABS: ALANINE AMINOTRANSFERASE 20 U/L (12-78); ALBUMIN 2.5 G/DL (3.4-5.0); ALBUMIN/GLOBULIN RATIO 0.7 (1.1-1.5); ALKALINE PHOSPHATASE 64 IU/L (46-116); ANION GAP 6 (8-16); ASPARTATE AMINO TRANSFERASE 12 U/L (10-37); BILIRUBIN,TOTAL 0.4 MG/DL (0.1-1.0); BLOOD UREA NITROGEN 2 MG/DL (7-18); BUN/CREATININE RATIO 4.3 (6.6-38.0); CALCIUM 8.1 MG/DL (8.5-10.1); CHLORIDE 105 MMOL/L (99-107); CREATININE 0.47 MG/DL (0.40-0.90); GLUCOSE 138 MG/DL (70-104); MAGNESIUM 1.2 MG/DL (1.5-2.4); PHOSPHORUS 2.6 MG/DL (2.3-4.5); POTASSIUM 3.1 MMOL/L (3.5-5.1); SODIUM 142 MMOL/L (135-145); TOTAL CARBON DIOXIDE 31.1 MMOL/L (24-32); TOTAL PROTEIN 6.3 G/DL (6.4-8.2); eGFR > 90 ML/MIN
[2018-10-18 05:28] LABS: ANISOCYTOSIS 1+; PLATELET ESTIMATE NORMAL; TOTAL CELLS COUNTED 100
[2018-10-18 05:29] LABS: HYPOCHROMASIA 1+
--- NOTE | 2018-10-18 06:05 | NUR ---
Patient in room [facility] 340. I have received report from and had the opportunity to ask questions and assume patient care. Addendum: 10/18/18 at 0933 by Olivia Baird RN CHECO Keys
--- NOTE | 2018-10-18 06:25 | NUR ---
Problems reprioritized. Patient report given, questions answered & plan of care reviewed with BUFFY.
[2018-10-18 06:30] VITALS: BP 162/63
[2018-10-18] MEDS: K and/or MAG REPLACEMENT MC SCH (06:35)
[2018-10-18] MEDS: budesonide 0.5mg/2ml UD nebule IH SCH (07:36)
[2018-10-18] MEDS: cloNIDine 0.1 mg tablet PO SCH ×2 (08:00→08:58)
[2018-10-18] MEDS: sucralfate 1gm/10ml UD suspension PO SCH ×2 (08:50→12:25)
[2018-10-18] MEDS: pantoprazole 40mg Tablet.DR PO SCH (08:50)
[2018-10-18] MEDS: CefTRIAXone/D5W-Rocephin 1gm 50 ML IV SCH (08:51)
[2018-10-18] MEDS: hydrALAZINE 25 MG tablet PO SCH ×2 (08:51)
[2018-10-18] MEDS: oxybutynin 5mg tablet PO SCH (08:52)
[2018-10-18] MEDS: ferrous sulfate 325mg tablet PO SCH (08:52)
[2018-10-18] MEDS: carvedilol 6.25mg tablet PO SCH (08:52)
[2018-10-18] MEDS: lisinopril 10 MG tablet PO SCH (08:53)
[2018-10-18] MEDS: furosemide 40mg tablet PO SCH (08:53)
[2018-10-18] MEDS: multivitamins, therapeutics tablet PO SCH (08:53)
[2018-10-18] MEDS: potassium Cl 20 mEq SR tablet PO PRN ×2 (08:54→12:25)
[2018-10-18] MEDS: magnesium Cl slow-release 64mg tablet PO PRN (08:54)
[2018-10-18] MEDS: nystatin 15 GM powder TP SCH ×2 (08:56→12:25)
[2018-10-18] MEDS: heparin, porcine 5000 units/ml vial SQ SCH (08:56)
[2018-10-18] MEDS ORDERED: CLON0.1T20 PO (09:03)
[2018-10-18] MEDS ORDERED: CEFD300C3 PO (09:03)
[2018-10-18] MEDS ORDERED: NYSPWD TP (09:03)
[2018-10-18 11:30] VITALS: BP 153/56
--- NOTE | 2018-10-18 14:45 | NUR ---
DC inst provided to pt. IV DC'd, tip intact. All belongings sent w/pt. WC to front lobby.
== END 2018-10-18 14:49 | disposition home health service (06) | DRG 389 ==
LOC: ER 07:54 → SUR 3N 16:48 → CMPBEDREQ 19:45
PROVIDERS: ADMIT Family Medicine; ATTEND Family Medicine
PROC: 0D9670Z Drainage of Stomach with Drainage Device, Via Natural or Artificial Opening (ICD-10-PCS; principal; 2018-10-13)
PROC: BW211ZZ Computerized Tomography (CT Scan) of Abdomen and Pelvis using Low Osmolar Contrast (ICD-10-PCS; 2018-10-14)
DX: K56.609 Unspecified intestinal obstruction, unspecified as to partial versus complete obstruction (principal); E87.0 Hyperosmolality and hypernatremia; N39.0 Urinary tract infection, site not specified; E78.5 Hyperlipidemia, unspecified; I25.10 Atherosclerotic heart disease of native coronary artery without angina pectoris; M81.0 Age-related osteoporosis without current pathological fracture; I50.9 Heart failure, unspecified; Z93.3 Colostomy status; B96.20 Unspecified Escherichia coli [E. coli] as the cause of diseases classified elsewhere; G47.30 Sleep apnea, unspecified; I11.0 Hypertensive heart disease with heart failure; G89.29 Other chronic pain; E11.9 Type 2 diabetes mellitus without complications; M19.90 Unspecified osteoarthritis, unspecified site; I48.91 Unspecified atrial fibrillation; J44.9 Chronic obstructive pulmonary disease, unspecified; K56.7 Ileus, unspecified; Z60.2 Problems related to living alone; K21.9 Gastro-esophageal reflux disease without esophagitis; Z79.02 Long term (current) use of antithrombotics/antiplatelets; Z79.4 Long term (current) use of insulin; Z80.0 Family history of malignant neoplasm of digestive organs; Z82.49 Family history of ischemic heart disease and other diseases of the circulatory system; Z85.048 Personal history of other malignant neoplasm of rectum, rectosigmoid junction, and anus; Z86.73 Personal history of transient ischemic attack (TIA), and cerebral infarction without residual deficits; Z87.891 Personal history of nicotine dependence; Z90.49 Acquired absence of other specified parts of digestive tract; Z90.710 Acquired absence of both cervix and uterus; Z99.81 Dependence on supplemental oxygen; Z88.5 Allergy status to narcotic agent; Z88.2 Allergy status to sulfonamides; Z88.8 Allergy status to other drugs, medicaments and biological substances; Z82.5 Family history of asthma and other chronic lower respiratory diseases; Z83.3 Family history of diabetes mellitus; Z83.42 Family history of familial hypercholesterolemia
CPT/HCPCS: 36415; 74021; 74176; 74177; 80053; 80061; 81001; 82948; 83036; 83605; 83735; 84100; 85025; 85610; 85730; 87077; 87081; 87088; 87186; 94640; 94667; 94668; 94760; 96374; 96375; 97110; 97116; 97162; 97530; 99285; G0378; J0360; J0696; J1644; J1815; J2270; J2405; J7030; J7626; Q9963; Q9967

== ENCOUNTER 2018-12-15 14:21 | Inpatient (IN) | payer MEDICARE, OTHER ==
[~2018-12-15] VITALS: Ht 154.9 cm; Wt 72.7 kg
[~2018-12-15 14:21] MED LIST changes: +ACET-75 PO; +ALBU8.5H8 IH; +ALEN35TA21 PO; +ASPI81TA52 PO; +CARV-50 PO; +CLON0.1T2 PO; -FURO20TA4 PO; +FURO40TA4 PO; +HUM7525 SQ; +HYDR-4069 PO; -IPRA3AMP31 INH; +IPRA3AMP31 NEB; +LANTUS SQ; +MULT-933 PO; -MULT-955 PO; +NYSPWD TP; +TIOT18CA3 PO
[2018-12-15] MEDS ORDERED: ipratropium/albuterol 3ml nebule NEB ONE (15:20)
--- NOTE | 2018-12-15 15:37 | NUR ---
RT AT BEDSIDE
[2018-12-15 15:43] LABS: BASOPHILS % (AUTO) 0.2 % (0-1); EOSINOPHILS # (AUTO) 0.1 X10'3 (0-0.9); EOSINOPHILS % (AUTO) 1.3 % (0-6); HEMATOCRIT 34.2 % (35.0-45.0); HEMOGLOBIN 11.3 g/dl (12.0-16.0); LYMPHOCYTES % (AUTO) 14.3 % (21-51); MEAN CORPUSCULAR HEMOGLOBIN 28.7 PG (27.0-31.0); MEAN PLATELET VOLUME 7.7 FL (7.4-10.4); MONOCYTES # (AUTO) 0.5 X10'3 (0-0.9); MONOCYTES % (AUTO) 7.1 % (2-12); NEUTROPHILS # (AUTO) 5.5 X10'3 (1.8-7.7); NEUTROPHILS % (AUTO) 77.1 % (42-75); PLATELET COUNT 224 X10'3 (140-440); RED BLOOD COUNT 3.93 X10'6 (4.20-5.60); RED CELL DISTRIBUTION WIDTH 14.8 % (11.5-14.5); WHITE BLOOD COUNT 7.1 X10'3 (4.5-11.0)
[2018-12-15 15:51] LABS: ABG BASE EXCESS 5.8 mmol/L (-2.0-3.0); ABG OXYGEN SATURATION 96.6 % (95-98); ABG PCO2 (T) 47.7 mmHg (35.0-45.0); ABG PH (T) 7.431 (7.350-7.450); ABG PO2 (T) 90.6 mmHg (83-108); ALLEN'S TEST Positive; FCOHb 0.6 % (0.5-1.5); FLOW 3 L/min; FMetHb 0.3 % (0.3-1.12); FO2Hb 95.7 % (94-100); TOTAL HEMOGLOBIN 11.9 G/dl (12.0-16.0)
[2018-12-15 16:05] LABS: ALANINE AMINOTRANSFERASE 39 U/L (12-78); ALBUMIN 3.4 G/DL (3.4-5.0); ALBUMIN/GLOBULIN RATIO 0.8 (1.1-1.5); ALKALINE PHOSPHATASE 111 IU/L (46-116); ANION GAP 9 (8-16); ASPARTATE AMINO TRANSFERASE 23 U/L (10-37); BILIRUBIN,TOTAL 0.3 MG/DL (0.1-1.0); BLOOD UREA NITROGEN 12 MG/DL (7-18); CALCIUM 9.1 MG/DL (8.5-10.1); CHLORIDE 104 MMOL/L (99-107); CREATININE 0.63 MG/DL (0.40-0.90); GLUCOSE 140 MG/DL (70-104); POTASSIUM 3.5 MMOL/L (3.5-5.1); SODIUM 144 MMOL/L (135-145); TOTAL CARBON DIOXIDE 31.5 MMOL/L (24-32); TOTAL PROTEIN 7.7 G/DL (6.4-8.2); eGFR 90 ML/MIN
[2018-12-15] MEDS ORDERED: furosemide 10 MG/1 ML 10ml inj IV ONE (16:15)
[2018-12-15] MEDS: normal saline 1000ml 1,000 ML IV SCH (16:51)
[2018-12-15] MEDS ORDERED: HYDROcodone/acetaminophen 10/325mg tab PO PRN (16:55)
[2018-12-15] MEDS ORDERED: dextrose 50%-water 50ml dispensing syringe IV PRN ×2 (16:55)
[2018-12-15] MEDS ORDERED: potassium CL 10mEq/100ml bag 100 ML IV PRN ×2 (16:55)
[2018-12-15] MEDS ORDERED: HYDROcodone/acetaminophen 5mg/325mg tablet PO PRN (16:55)
[2018-12-15] MEDS ORDERED: diphenhydrAMINE 25mg capsule PO PRN (16:55)
[2018-12-15] MEDS ORDERED: bisacodyl 10mg suppository rectal RC PRN (16:55)
[2018-12-15] MEDS ORDERED: ondansetron/PF 4mg/2ml inj IV PRN (16:55)
[2018-12-15] MEDS ORDERED: acetaminophen 325mg tablet PO PRN ×2 (16:55)
[2018-12-15] MEDS ORDERED: morphine 2 MG/ML inj. syringe IV PRN ×2 (16:55)
[2018-12-15] MEDS ORDERED: potassium Cl 20 mEq SR tablet PO PRN (16:55)
[2018-12-15] MEDS ORDERED: mag hydrox/Alum hydrox/simeth 30ml oral suspension PO PRN (16:55)
[2018-12-15] MEDS: K and/or MAG REPLACEMENT MC SCH (16:55)
[2018-12-15] MEDS ORDERED: magnesium hydroxide 30ml (MOM) UD suspension PO PRN (16:55)
[2018-12-15] MEDS ORDERED: magnesium 4gm in 100ml NS 100 ML IV PRN (16:55)
[2018-12-15] MEDS ORDERED: acetaminophen 650mg rectal suppository RC PRN (16:55)
[2018-12-15] MEDS ORDERED: magnesium 2GM in 50ml NS 50 ML IV PRN (16:55)
[2018-12-15] MEDS ORDERED: dextrose ORAL solution 15 GM/59 ML bottle PO PRN ×2 (16:55)
[2018-12-15] MEDS ORDERED: glucagon, human recombinant 1mg kit SUBCUT PRN (16:55)
[2018-12-15] MEDS ORDERED: MESSAGE TO PHARMACY PO ONE (16:55)
[2018-12-15 17:17] LABS: HEMOGLOBIN A1C 5.8 % (4.5-6.2)
[2018-12-15] MEDS ORDERED: methylPREDNISolone sod succ 125mg/2ml vial IV ONE (17:35)
--- NOTE | 2018-12-15 19:15 | NUR ---
Patient in room ED 16. I have received report from CHECO Smith in ER and had the opportunity to ask questions and assume patient care.
[2018-12-15] MEDS: ipratropium/albuterol 3ml nebule NEB SCH ×2 (19:33→23:17)
[2018-12-15] MEDS: insulin glargine (Lantus) pen - multi-dose SQ SCH (21:00)
[2018-12-15] MEDS ORDERED: temazepam 15mg capsule PO PRN (21:00)
[2018-12-15] MEDS: levoFLOXACIN-Levaquin 750MG/D5 150 ML IV SCH (21:02)
[2018-12-15] MEDS: furosemide 10 MG/1 ML 10ml inj IV SCH (21:03)
[2018-12-15] MEDS: methylPREDNISolone sod succ 125mg/2ml vial IV SCH (21:03)
[2018-12-15] MEDS: heparin, porcine 5000 units/ml vial SQ SCH (21:04)
[2018-12-15 22:00] VITALS: BP 172/74
[2018-12-15 23:00] VITALS: BP 172/74
[2018-12-16] MEDS ORDERED: FURO20TA4 PO (00:18)
[2018-12-16] MEDS ORDERED: CLON0.1T PO (00:50)
[2018-12-16] MEDS: methylPREDNISolone sod succ 125mg/2ml vial IV SCH ×4 (01:51→20:43)
[2018-12-16 02:00] VITALS: BP 158/82
[2018-12-16] MEDS: ipratropium/albuterol 3ml nebule NEB SCH ×6 (03:21→23:22)
[2018-12-16 04:12] LABS: ALANINE AMINOTRANSFERASE 34 U/L (12-78); ALBUMIN 3.3 G/DL (3.4-5.0); ALBUMIN/GLOBULIN RATIO 0.7 (1.1-1.5); ALKALINE PHOSPHATASE 105 IU/L (46-116); ANION GAP 7 (8-16); ASPARTATE AMINO TRANSFERASE 14 U/L (10-37); BILIRUBIN,TOTAL 0.4 MG/DL (0.1-1.0); BLOOD UREA NITROGEN 12 MG/DL (7-18); BUN/CREATININE RATIO 18.8 (6.6-38.0); CHLORIDE 99 MMOL/L (99-107); CHOL/HDL RATIO 1.8 (0.00-4.99); CHOLESTEROL 97 MG/DL (0-200); CREATININE 0.64 MG/DL (0.40-0.90); GLUCOSE 189 MG/DL (70-104); HDL CHOLESTEROL 53 MG/DL (35-60); LDL CHOLESTEROL 41 MG/DL (50-100); MAGNESIUM 1.2 MG/DL (1.5-2.4); PHOSPHORUS 4.1 MG/DL (2.3-4.5); SODIUM 141 MMOL/L (135-145); TOTAL CARBON DIOXIDE 35.3 MMOL/L (24-32); TOTAL PROTEIN 7.9 G/DL (6.4-8.2); TRIGLYCERIDES 45 MG/DL (20-135); eGFR 89 ML/MIN
[2018-12-16 04:14] LABS: POTASSIUM 2.8 MMOL/L (3.5-5.1)
[2018-12-16] MEDS: potassium Cl 20 mEq SR tablet PO PRN ×2 (05:05→14:42)
[2018-12-16 05:26] LABS: CLARITY,URINE CLEAR (Clear); COLOR,URINE YELLOW (Yellow); GLUCOSE, URINE NEGATIVE (Neg); KETONES,URINE 15 mg/dl (Neg); LEUKOCYTE ESTERASE ,URINE TRACE (Neg); NITRITES, URINE NEGATIVE (Neg); OCCULT BLOOD,URINE SMALL (Neg); PH,URINE 5.5 (4.8-8.0); PROTEIN,URINE 30 mg/dl (Neg); UROBILINOGEN,URINE 0.2 E.U/dL (0.2-1.0)
[2018-12-16 05:31] LABS: UA COLLECTION TYPE CLN CATCH MIDSTREAM
[2018-12-16 05:32] LABS: BACTERIA,URINE FEW /HPF (Neg); MUCUS STRANDS NONE SEEN /LPF (Neg); RBC,URINE NONE SEEN /HPF (0-2); SQUAMOUS EPITHELIAL CELL,UR MODERATE /LPF (FEW); WBC,URINE 0-4 /HPF (0-4)
[2018-12-16 05:40] LABS: BASOPHILS % (AUTO) 0.1 % (0-1); EOSINOPHILS % (AUTO) 0 % (0-6); HEMATOCRIT 36.7 % (35.0-45.0); HEMOGLOBIN 12.2 g/dl (12.0-16.0); LYMPHOCYTES # (AUTO) 0.5 X10'3 (1.1-4.8); LYMPHOCYTES % (AUTO) 10.9 % (21-51); MEAN CORPUSCULAR HEMOGLOBIN 28.7 PG (27.0-31.0); MEAN CORPUSCULAR HGB CONC 33.2 g/dL (33.0-36.5); MEAN CORPUSCULAR VOLUME 86.5 FL (78-98); MEAN PLATELET VOLUME 8.1 FL (7.4-10.4); MONOCYTES # (AUTO) 0.1 X10'3 (0-0.9); MONOCYTES % (AUTO) 1.2 % (2-12); NEUTROPHILS # (AUTO) 4.2 X10'3 (1.8-7.7); NEUTROPHILS % (AUTO) 87.8 % (42-75); PLATELET COUNT 234 X10'3 (140-440); RED BLOOD COUNT 4.25 X10'6 (4.20-5.60); RED CELL DISTRIBUTION WIDTH 14.7 % (11.5-14.5); WHITE BLOOD COUNT 4.8 X10'3 (4.5-11.0)
--- NOTE | 2018-12-16 06:27 | NUR ---
Patient in room PCU 3011. I have received report from CHECO Ayon and had the opportunity to ask questions and assume patient care.
--- NOTE | 2018-12-16 06:43 | NUR ---
Problems reprioritized. Patient report given, questions answered & plan of care reviewed with CHECO Walden.
[2018-12-16] MEDS: furosemide 10 MG/1 ML 10ml inj IV SCH ×2 (07:22→20:42)
[2018-12-16] MEDS: levoFLOXACIN-Levaquin 750MG/D5 150 ML IV SCH (07:22)
[2018-12-16] MEDS: magnesium Cl slow-release 64mg tablet PO PRN ×2 (07:23→22:56)
[2018-12-16] MEDS: heparin, porcine 5000 units/ml vial SQ SCH ×2 (07:35→20:44)
[2018-12-16] MEDS: K and/or MAG REPLACEMENT MC SCH (08:00)
[2018-12-16] MEDS ORDERED: non-formulary drug (Acetaminophen 2 TAB) PO PRN (08:45)
[2018-12-16] MEDS ORDERED: docusate sod 100mg capsule PO PRN (08:45)
[2018-12-16] MEDS ORDERED: aspirin 81mg tablet.DR PO PRN (08:45)
[2018-12-16] MEDS ORDERED: non-formulary drug (Alendronate Sodium 1 TAB) PO SCH (08:45)
[2018-12-16] MEDS ORDERED: albuterol 2.5 MG/3 ML nebule NEB PRN (09:05)
[2018-12-16] MEDS: carvedilol 6.25mg tablet PO SCH ×2 (09:11→20:45)
[2018-12-16] MEDS: clopidogrel 75mg tablet PO SCH (09:11)
[2018-12-16] MEDS: cloNIDine 0.1 mg tablet PO SCH ×2 (09:12→09:22)
[2018-12-16] MEDS: lisinopril 10 MG tablet PO SCH (09:21)
[2018-12-16] MEDS: multivitamins, therapeutics tablet PO SCH (09:22)
[2018-12-16] MEDS: ferrous sulfate 325mg tablet PO SCH (09:22)
[2018-12-16] MEDS: hydrALAZINE 25 MG tablet PO SCH ×2 (09:24→17:29)
[2018-12-16] MEDS: oxybutynin 5mg tablet PO SCH ×2 (09:44→20:44)
[2018-12-16] MEDS: sucralfate 1gm/10ml UD suspension PO SCH ×3 (12:23→20:45)
--- NOTE | 2018-12-16 12:34 | NUR ---
I have reviewed and agree with all medications administered and interventions performed by [facility] Student(john lucero)
--- NOTE | 2018-12-16 14:00 | NUR ---
Pt defeered Addendum: 12/16/18 at 1430 by Iram Arechiga RN DM II Pt deferred insulin coverage after lunch. She was not fasting for accuchek 211 @ 1200 and had only sm carb intake at lunch meal.
[2018-12-16] MEDS: albuterol 2.5 MG/3 ML nebule NEB SCH ×2 (14:30→19:59)
--- NOTE | 2018-12-16 16:04 | NUR ---
Malnutrition consult. Patient presents with reported unintentional weight loss between 2-13 lbs. Current weight is pt stated at 72.73 kg, last scale weight was gurney scale on 10/14/18 at 80 kg. Through the past year pt has weight fluctuations between 68 kg to 80 kg. Need new scale weight for accurate assessment. PO documentation is pending. D/w RN need for new weight. Will continue to assess for malnutrition. Addendum: 12/16/18 at [address] Amended: Links added.
--- NOTE | 2018-12-16 17:53 | NUR ---
Ronald Lui Rm 3011 Pt is not producing sputum. Ok to cancel sputum culture? CHECO Luna ext [phone] page to Chika
[2018-12-16 18:00] VITALS: BP 141/75
--- NOTE | 2018-12-16 18:00 | NUR ---
Problems reprioritized. Patient report given, questions answered & plan of care reviewed with CHECO Ayon.
[2018-12-16] MEDS: budesonide 0.5mg/2ml UD nebule IH SCH (19:37)
[2018-12-16] MEDS ORDERED: FLUTICASONE PROPIONATE INH SCH (20:00)
[2018-12-16] MEDS ORDERED: non-formulary drug (Fluticasone/Salmeterol (Advair 250-50 Diskus) 1 PUFFS) INH SCH (20:00)
[2018-12-16] MEDS: insulin Lispro (HumaLOG) vial - multi-dose SQ SCH (20:42)
[2018-12-16] MEDS: atorvastatin 20mg tablet PO SCH (20:44)
[2018-12-16 22:00] VITALS: BP 120/60
[2018-12-16] MEDS: insulin glargine (Lantus) pen - multi-dose SQ SCH (22:55)
[2018-12-17] MEDS: hydrALAZINE 25 MG tablet PO SCH ×3 (00:16→16:48)
[2018-12-17 02:00] VITALS: BP 128/69
[2018-12-17] MEDS: methylPREDNISolone sod succ 125mg/2ml vial IV SCH ×4 (02:49→19:37)
--- NOTE | 2018-12-17 02:56 | NUR ---
report received from CHECO Luna Addendum: 12/18/18 at 0258 by Juvencio Hill RN alexy time, 12/17/18 @ 1828
[2018-12-17] MEDS: ipratropium/albuterol 3ml nebule NEB SCH ×6 (03:08→23:32)
[2018-12-17 06:00] VITALS: BP 148/81
--- NOTE | 2018-12-17 06:00 | NUR ---
Patient in room PCU 3011. I have received report from CHECO Ayon and had the opportunity to ask questions and assume patient care.
[2018-12-17 06:16] LABS: BASOPHILS % (AUTO) 0 % (0-1); EOSINOPHILS % (AUTO) 0 % (0-6); HEMATOCRIT 37.1 % (35.0-45.0); HEMOGLOBIN 12.4 g/dl (12.0-16.0); LYMPHOCYTES # (AUTO) 0.7 X10'3 (1.1-4.8); LYMPHOCYTES % (AUTO) 6.6 % (21-51); MEAN CORPUSCULAR HEMOGLOBIN 29.1 PG (27.0-31.0); MEAN CORPUSCULAR HGB CONC 33.3 g/dL (33.0-36.5); MEAN CORPUSCULAR VOLUME 87.3 FL (78-98); MEAN PLATELET VOLUME 8.2 FL (7.4-10.4); MONOCYTES # (AUTO) 0.3 X10'3 (0-0.9); MONOCYTES % (AUTO) 3.3 % (2-12); NEUTROPHILS % (AUTO) 90.1 % (42-75); PLATELET COUNT 241 X10'3 (140-440); RED BLOOD COUNT 4.25 X10'6 (4.20-5.60); RED CELL DISTRIBUTION WIDTH 14.9 % (11.5-14.5)
--- NOTE | 2018-12-17 06:34 | NUR ---
Problems reprioritized. Patient report given, questions answered & plan of care reviewed with CHECO Walden.
[2018-12-17 06:37] LABS: ALANINE AMINOTRANSFERASE 31 U/L (12-78); ALBUMIN 3.1 G/DL (3.4-5.0); ALBUMIN/GLOBULIN RATIO 0.7 (1.1-1.5); ALKALINE PHOSPHATASE 91 IU/L (46-116); ANION GAP 4 (8-16); ASPARTATE AMINO TRANSFERASE 21 U/L (10-37); BILIRUBIN,TOTAL 0.3 MG/DL (0.1-1.0); BLOOD UREA NITROGEN 21 MG/DL (7-18); BUN/CREATININE RATIO 22.3 (6.6-38.0); CALCIUM 8.8 MG/DL (8.5-10.1); CHLORIDE 97 MMOL/L (99-107); CREATININE 0.94 MG/DL (0.40-0.90); GLUCOSE 230 MG/DL (70-104); MAGNESIUM 1.4 MG/DL (1.5-2.4); PHOSPHORUS 3.5 MG/DL (2.3-4.5); POTASSIUM 4.2 MMOL/L (3.5-5.1); SODIUM 137 MMOL/L (135-145); TOTAL CARBON DIOXIDE 36.4 MMOL/L (24-32); TOTAL PROTEIN 7.7 G/DL (6.4-8.2); eGFR 57 ML/MIN
[2018-12-17] MEDS: budesonide 0.5mg/2ml UD nebule IH SCH ×2 (07:11→19:23)
[2018-12-17] MEDS: carvedilol 6.25mg tablet PO SCH ×2 (08:30→19:35)
[2018-12-17] MEDS: heparin, porcine 5000 units/ml vial SQ SCH ×2 (08:30→19:41)
[2018-12-17] MEDS: sucralfate 1gm/10ml UD suspension PO SCH ×4 (08:30→21:42)
[2018-12-17] MEDS: magnesium Cl slow-release 64mg tablet PO PRN ×2 (08:31→21:49)
[2018-12-17] MEDS: lisinopril 10 MG tablet PO SCH (08:31)
[2018-12-17] MEDS: oxybutynin 5mg tablet PO SCH ×2 (08:32→19:35)
[2018-12-17] MEDS: multivitamins, therapeutics tablet PO SCH (08:32)
[2018-12-17] MEDS: ferrous sulfate 325mg tablet PO SCH (08:32)
[2018-12-17] MEDS: clopidogrel 75mg tablet PO SCH (08:32)
[2018-12-17] MEDS: furosemide 10 MG/1 ML 10ml inj IV SCH ×2 (08:33→19:41)
[2018-12-17] MEDS: K and/or MAG REPLACEMENT MC SCH (08:35)
[2018-12-17] MEDS: insulin Lispro (HumaLOG) vial - multi-dose SQ SCH ×3 (09:02→19:50)
[2018-12-17 11:00] VITALS: BP 142/67
[2018-12-17 15:00] VITALS: BP 132/56
[2018-12-17] MEDS: normal saline 1000ml 1,000 ML IV SCH (16:51)
[2018-12-17 18:00] VITALS: BP 155/71
--- NOTE | 2018-12-17 18:28 | NUR ---
Problems reprioritized. Patient report given, questions answered & plan of care reviewed with CHECO Samuel.
[2018-12-17] MEDS ORDERED: pantoprazole 40mg Tablet.DR PO SCH (21:00)
[2018-12-17] MEDS: atorvastatin 20mg tablet PO SCH (21:43)
[2018-12-17] MEDS: insulin glargine (Lantus) pen - multi-dose SQ SCH (21:49)
[2018-12-17 22:00] VITALS: BP 142/64
[2018-12-18] MEDS: hydrALAZINE 25 MG tablet PO SCH ×2 (01:04→07:11)
[2018-12-18] MEDS: methylPREDNISolone sod succ 125mg/2ml vial IV SCH ×3 (01:04→13:19)
[2018-12-18 02:00] VITALS: BP 132/66
[2018-12-18] MEDS: ipratropium/albuterol 3ml nebule NEB SCH ×3 (02:57→11:34)
[2018-12-18 05:44] LABS: ALANINE AMINOTRANSFERASE 31 U/L (12-78); ALBUMIN 3.1 G/DL (3.4-5.0); ALBUMIN/GLOBULIN RATIO 0.7 (1.1-1.5); ALKALINE PHOSPHATASE 85 IU/L (46-116); ANION GAP 4 (8-16); ASPARTATE AMINO TRANSFERASE 18 U/L (10-37); BILIRUBIN,TOTAL 0.3 MG/DL (0.1-1.0); BLOOD UREA NITROGEN 32 MG/DL (7-18); BUN/CREATININE RATIO 43.8 (6.6-38.0); CALCIUM 8.8 MG/DL (8.5-10.1); CHLORIDE 99 MMOL/L (99-107); CREATININE 0.73 MG/DL (0.40-0.90); GLUCOSE 193 MG/DL (70-104); MAGNESIUM 1.7 MG/DL (1.5-2.4); POTASSIUM 3.6 MMOL/L (3.5-5.1); SODIUM 139 MMOL/L (135-145); TOTAL CARBON DIOXIDE 35.6 MMOL/L (24-32); TOTAL PROTEIN 7.3 G/DL (6.4-8.2); eGFR 76 ML/MIN
[2018-12-18 05:56] LABS: BASOPHILS % (AUTO) 0 % (0-1); EOSINOPHILS % (AUTO) 0 % (0-6); HEMOGLOBIN 12.4 g/dl (12.0-16.0); LYMPHOCYTES # (AUTO) 0.6 X10'3 (1.1-4.8); LYMPHOCYTES % (AUTO) 5.6 % (21-51); MEAN CORPUSCULAR HEMOGLOBIN 28.7 PG (27.0-31.0); MEAN CORPUSCULAR HGB CONC 32.7 g/dL (33.0-36.5); MEAN CORPUSCULAR VOLUME 87.8 FL (78-98); MEAN PLATELET VOLUME 8.2 FL (7.4-10.4); MONOCYTES # (AUTO) 0.2 X10'3 (0-0.9); MONOCYTES % (AUTO) 2.2 % (2-12); NEUTROPHILS # (AUTO) 9.9 X10'3 (1.8-7.7); NEUTROPHILS % (AUTO) 92.2 % (42-75); PLATELET COUNT 269 X10'3 (140-440); RED BLOOD COUNT 4.32 X10'6 (4.20-5.60); RED CELL DISTRIBUTION WIDTH 14.9 % (11.5-14.5); WHITE BLOOD COUNT 10.7 X10'3 (4.5-11.0)
--- NOTE | 2018-12-18 06:08 | NUR ---
Patient in room PCU 3011. I have received report from Jimmie KESSLER and had the opportunity to ask questions and assume patient care.
--- NOTE | 2018-12-18 06:26 | NUR ---
report given to CHECO Wood
[2018-12-18 07:00] VITALS: BP 154/71
[2018-12-18] MEDS: budesonide 0.5mg/2ml UD nebule IH SCH (07:02)
[2018-12-18] MEDS: sucralfate 1gm/10ml UD suspension PO SCH ×2 (07:08→11:24)
[2018-12-18] MEDS: heparin, porcine 5000 units/ml vial SQ SCH (07:08)
[2018-12-18] MEDS: furosemide 10 MG/1 ML 10ml inj IV SCH (07:08)
[2018-12-18] MEDS: lisinopril 10 MG tablet PO SCH (07:10)
[2018-12-18] MEDS: ferrous sulfate 325mg tablet PO SCH (07:11)
[2018-12-18] MEDS: multivitamins, therapeutics tablet PO SCH (07:11)
[2018-12-18] MEDS: carvedilol 6.25mg tablet PO SCH (07:11)
[2018-12-18] MEDS: oxybutynin 5mg tablet PO SCH (07:11)
[2018-12-18] MEDS: clopidogrel 75mg tablet PO SCH (07:11)
[2018-12-18] MEDS: cloNIDine 0.1 mg tablet PO SCH (07:11)
[2018-12-18] MEDS: K and/or MAG REPLACEMENT MC SCH (08:00)
[2018-12-18] MEDS: insulin Lispro (HumaLOG) vial - multi-dose SQ SCH ×2 (09:50→13:23)
[2018-12-18 11:00] VITALS: BP 139/72
[2018-12-18] MEDS ORDERED: levoFLOXACIN 750MG TABLET PO SCH (11:00)
--- NOTE | 2018-12-18 16:32 | NUR ---
Patient report called to RPA all questions answered. Patients IV dc'd cannula intact. Patient was assisted in getting dressed. Patient was taken via wheelchair by christina cargo. Patient states she has all her belongings. Patient stated she called her son and let him know where she was going and at what time.
== END 2018-12-18 14:00 | DRG 291 ==
LOC: ER 14:21 → ED HOLD 16:51 → PCU 3S 19:27
PROVIDERS: ADMIT Family Medicine; ATTEND Family Medicine
DX: I11.0 Hypertensive heart disease with heart failure (principal); J18.9 Pneumonia, unspecified organism; J96.91 Respiratory failure, unspecified with hypoxia; J44.1 Chronic obstructive pulmonary disease with (acute) exacerbation; J98.11 Atelectasis; J44.0 Chronic obstructive pulmonary disease with (acute) lower respiratory infection; I50.33 Acute on chronic diastolic (congestive) heart failure; K21.9 Gastro-esophageal reflux disease without esophagitis; M81.0 Age-related osteoporosis without current pathological fracture; I48.91 Unspecified atrial fibrillation; I25.10 Atherosclerotic heart disease of native coronary artery without angina pectoris; E78.00 Pure hypercholesterolemia, unspecified; D64.9 Anemia, unspecified; E78.5 Hyperlipidemia, unspecified; E87.6 Hypokalemia; G47.33 Obstructive sleep apnea (adult) (pediatric); E11.9 Type 2 diabetes mellitus without complications; M19.90 Unspecified osteoarthritis, unspecified site; G47.30 Sleep apnea, unspecified; G89.4 Chronic pain syndrome; Z60.2 Problems related to living alone; I27.81 Cor pulmonale (chronic); Z79.02 Long term (current) use of antithrombotics/antiplatelets; Z79.4 Long term (current) use of insulin; Z79.899 Other long term (current) drug therapy; Z80.0 Family history of malignant neoplasm of digestive organs; Z82.49 Family history of ischemic heart disease and other diseases of the circulatory system; Z85.048 Personal history of other malignant neoplasm of rectum, rectosigmoid junction, and anus; Z86.73 Personal history of transient ischemic attack (TIA), and cerebral infarction without residual deficits; Z87.440 Personal history of urinary (tract) infections; Z87.891 Personal history of nicotine dependence; Z90.49 Acquired absence of other specified parts of digestive tract; Z90.710 Acquired absence of both cervix and uterus; Z93.3 Colostomy status; Z99.81 Dependence on supplemental oxygen; Z88.2 Allergy status to sulfonamides; Z88.8 Allergy status to other drugs, medicaments and biological substances
CPT/HCPCS: 36415; 36600; 71045; 80053; 80061; 81001; 82803; 82948; 83036; 83605; 83735; 83880; 84100; 84132; 84484; 85018; 85025; 87040; 87081; 87088; 92508; 92616; 93005; 93306; 94640; 94760; 97112; 97116; 97161; 97530; 97535; 99285; G0378; J1644; J1815; J1940; J1956; J2405; J2930; J7030; J7626

== ENCOUNTER 2019-01-21 15:11 | Emergency (ER) | payer MEDICARE, OTHER ==
[~2019-01-21] VITALS: Ht 154.9 cm; Wt 73.6 kg
[~2019-01-21 15:11] MED LIST changes: +CLON0.1T PO; -CLON0.1T2 PO; +FURO20TA4 PO; -NYSPWD TP; -TIOT18CA3 PO
[2019-01-21] MEDS ORDERED: ipratropium/albuterol 3ml nebule NEB ONE ×2 (17:20→21:50)
[2019-01-21] MEDS ORDERED: methylPREDNISolone sod succ 125mg/2ml vial IV ONE (17:20)
[2019-01-21 18:50] LABS: BASOPHILS % (AUTO) 0.4 % (0-1); EOSINOPHILS # (AUTO) 0.1 X10'3 (0-0.9); EOSINOPHILS % (AUTO) 0.9 % (0-6); HEMATOCRIT 32.7 % (35.0-45.0); HEMOGLOBIN 10.9 g/dl (12.0-16.0); LYMPHOCYTES # (AUTO) 1.4 X10'3 (1.1-4.8); LYMPHOCYTES % (AUTO) 21.3 % (21-51); MEAN CORPUSCULAR HEMOGLOBIN 28.5 PG (27.0-31.0); MEAN CORPUSCULAR HGB CONC 33.2 g/dL (33.0-36.5); MEAN CORPUSCULAR VOLUME 85.6 FL (78-98); MEAN PLATELET VOLUME 7.5 FL (7.4-10.4); MONOCYTES # (AUTO) 0.7 X10'3 (0-0.9); MONOCYTES % (AUTO) 10.4 % (2-12); NEUTROPHILS # (AUTO) 4.5 X10'3 (1.8-7.7); PLATELET COUNT 242 X10'3 (140-440); RED BLOOD COUNT 3.82 X10'6 (4.20-5.60); RED CELL DISTRIBUTION WIDTH 14.9 % (11.5-14.5); WHITE BLOOD COUNT 6.8 X10'3 (4.5-11.0)
[2019-01-21 19:35] LABS: ALANINE AMINOTRANSFERASE 26 U/L (12-78); ALBUMIN 3.3 G/DL (3.4-5.0); ALBUMIN/GLOBULIN RATIO 0.8 (1.1-1.5); ALKALINE PHOSPHATASE 97 IU/L (46-116); ANION GAP 7 (8-16); ASPARTATE AMINO TRANSFERASE 17 U/L (10-37); BILIRUBIN,TOTAL 0.4 MG/DL (0.1-1.0); BLOOD UREA NITROGEN 14 MG/DL (7-18); BUN/CREATININE RATIO 21.2 (6.6-38.0); CALCIUM 9.3 MG/DL (8.5-10.1); CHLORIDE 104 MMOL/L (99-107); CREATININE 0.66 MG/DL (0.40-0.90); GLUCOSE 150 MG/DL (70-104); SODIUM 144 MMOL/L (135-145); TOTAL CARBON DIOXIDE 33.5 MMOL/L (24-32); TOTAL PROTEIN 7.4 G/DL (6.4-8.2); eGFR 86 ML/MIN
[2019-01-21] MEDS ORDERED: potassium Cl 20 mEq SR tablet PO STA (19:48)
[2019-01-21] MEDS ORDERED: furosemide 10 MG/1 ML 10ml inj IV ONE (20:15)
[2019-01-21] MEDS ORDERED: furosemide 40mg/4ml inj IV ONE (20:15)
--- NOTE | 2019-01-21 21:59 | NUR ---
PT REQUESTING BREATHING TX DT DYSPNEA ON MODERATE EXERTION IN BED; GINA BUENO NOTIFIED. WILL DELAY DC'ING PATIENT UNTIL FULLY STABLE FOR DC. PT AGREES.
--- NOTE | 2019-01-21 22:54 | NUR ---
CONTACTED MARIELA JOYNER, PT SON, TO [place] FOR A RIDE HOME. SON SAID HE WOULD ATTEMPT TO CONTACT HIS GIRLFRIEND HE CANNOT DRIVE.
[2019-01-22 00:14] VITALS: BP 162/83
== END 2019-01-21 23:56 | disposition home or self-care (01) ==
LOC: ER 15:11
DX: I50.9 Heart failure, unspecified (principal); I48.91 Unspecified atrial fibrillation; I10 Essential (primary) hypertension; J44.9 Chronic obstructive pulmonary disease, unspecified; G47.30 Sleep apnea, unspecified; K21.9 Gastro-esophageal reflux disease without esophagitis; E11.8 Type 2 diabetes mellitus with unspecified complications; M19.90 Unspecified osteoarthritis, unspecified site; G89.29 Other chronic pain; Z90.89 Acquired absence of other organs; Z90.49 Acquired absence of other specified parts of digestive tract; Z90.710 Acquired absence of both cervix and uterus; Z88.2 Allergy status to sulfonamides; Z88.8 Allergy status to other drugs, medicaments and biological substances; Z79.899 Other long term (current) drug therapy
CPT/HCPCS: 36415; 71045; 80053; 83880; 84484; 85025; 93005; 94640; 96374; 96375; 99284; J1940; J2930; 94760

== ENCOUNTER 2019-01-28 14:00 | Inpatient (IN) | payer MEDICARE, OTHER ==
[~2019-01-28] VITALS: Ht 154.9 cm; Wt 66.4 kg
[2019-01-28] MEDS ORDERED: methylPREDNISolone sod succ 125mg/2ml vial IV ONE (14:25)
[2019-01-28] MEDS ORDERED: furosemide 40mg/4ml inj IV ONE (14:25)
[2019-01-28] MEDS ORDERED: ipratropium/albuterol 3ml nebule NEB ONE (14:25)
[2019-01-28 14:57] LABS: BASOPHILS % (AUTO) 0.5 % (0-1); EOSINOPHILS # (AUTO) 0.1 X10'3 (0-0.9); EOSINOPHILS % (AUTO) 0.8 % (0-6); HEMATOCRIT 34.5 % (35.0-45.0); HEMOGLOBIN 11.4 g/dl (12.0-16.0); LYMPHOCYTES # (AUTO) 1.3 X10'3 (1.1-4.8); LYMPHOCYTES % (AUTO) 16.2 % (21-51); MEAN PLATELET VOLUME 7.5 FL (7.4-10.4); MONOCYTES # (AUTO) 0.7 X10'3 (0-0.9); MONOCYTES % (AUTO) 9.2 % (2-12); NEUTROPHILS # (AUTO) 5.9 X10'3 (1.8-7.7); NEUTROPHILS % (AUTO) 73.3 % (42-75); PLATELET COUNT 240 X10'3 (140-440); RED BLOOD COUNT 4.06 X10'6 (4.20-5.60); RED CELL DISTRIBUTION WIDTH 14.9 % (11.5-14.5)
[2019-01-28 15:22] LABS: PARTIAL THROMBOPLASTIN TIME 31 SECONDS (22-32)
[2019-01-28 15:37] LABS: ALANINE AMINOTRANSFERASE 27 U/L (12-78); ALBUMIN 3.5 G/DL (3.4-5.0); ALBUMIN/GLOBULIN RATIO 0.7 (1.1-1.5); ALKALINE PHOSPHATASE 104 IU/L (46-116); ANION GAP 7 (8-16); ASPARTATE AMINO TRANSFERASE 19 U/L (10-37); BILIRUBIN,TOTAL 0.5 MG/DL (0.1-1.0); BLOOD UREA NITROGEN 12 MG/DL (7-18); CALCIUM 9.4 MG/DL (8.5-10.1); CHLORIDE 104 MMOL/L (99-107); GLUCOSE 148 MG/DL (70-104); SODIUM 143 MMOL/L (135-145); TOTAL CARBON DIOXIDE 32.5 MMOL/L (24-32); TOTAL PROTEIN 8.2 G/DL (6.4-8.2); eGFR > 90 ML/MIN
[2019-01-28 15:43] LABS: POTASSIUM 2.9 MMOL/L (3.5-5.1)
[2019-01-28] MEDS ORDERED: potassium Cl 10 mEq/100mL bag IV ONE ×2 (15:45)
[2019-01-28] MEDS ORDERED: potassium bicarbonate/cit acid 25mEq tablet.effervescent PO STA (15:46)
[2019-01-28] MEDS ORDERED: POTASSIUM BICARB 20meq eff tab 20 MEQ TABLET.EFF PO STA ×3 (15:56→16:05)
[2019-01-28] MEDS ORDERED: POTASSIUM BICARBONATE/CIT AC 10 MEQ TABLET.EFF PO STA (15:57)
[2019-01-28] MEDS ORDERED: normal saline 1000ml 1,000 ML IV SCH (16:29)
[2019-01-28] MEDS ORDERED: acetaminophen 325mg tablet PO PRN ×2 (16:30)
[2019-01-28] MEDS ORDERED: magnesium 2GM in 50ml NS 50 ML IV PRN (16:30)
[2019-01-28] MEDS ORDERED: morphine 2 MG/ML inj. syringe IV PRN (16:30)
[2019-01-28] MEDS ORDERED: potassium Cl 20 mEq SR tablet PO PRN (16:30)
[2019-01-28] MEDS ORDERED: HYDROcodone/acetaminophen 5mg/325mg tablet PO PRN (16:30)
[2019-01-28] MEDS ORDERED: potassium CL 10mEq/100ml bag 100 ML IV PRN ×2 (16:30)
[2019-01-28] MEDS ORDERED: magnesium 4gm in 100ml NS 100 ML IV PRN (16:30)
[2019-01-28] MEDS ORDERED: ondansetron/PF 4mg/2ml inj IV PRN (16:30)
[2019-01-28] MEDS ORDERED: dextrose 50%-water 50ml dispensing syringe IV PRN ×2 (16:40)
[2019-01-28] MEDS ORDERED: dextrose ORAL solution 15 GM/59 ML bottle PO PRN ×2 (16:40)
[2019-01-28] MEDS ORDERED: MESSAGE TO PHARMACY PO ONE (16:40)
[2019-01-28] MEDS ORDERED: glucagon, human recombinant 1mg kit SUBCUT PRN (16:40)
[2019-01-28] MEDS ORDERED: DENO60DI IV (16:53)
[2019-01-28] MEDS ORDERED: FLUT1AER PO (16:53)
[2019-01-28] MEDS ORDERED: PANT40TA4 PO (16:53)
[2019-01-28] MEDS ORDERED: POTA20PA31 PO (16:53)
[2019-01-28] MEDS ORDERED: [UNRECOGNIZED DRUG - OTHER] IV ONE (17:05)
[2019-01-28] MEDS ORDERED: LIDOCAINE 1% IV ONE (17:05)
[2019-01-28] MEDS ORDERED: POTASSIUM CL IV ONE (17:05)
[2019-01-28 17:26] LABS: CLARITY,URINE SLIGHTLY CLOUDY (Clear); COLOR,URINE STRAW (Yellow); GLUCOSE, URINE NEGATIVE (Neg); KETONES,URINE NEGATIVE (Neg); LEUKOCYTE ESTERASE ,URINE MODERATE (Neg); NITRITES, URINE NEGATIVE (Neg); OCCULT BLOOD,URINE NEGATIVE (Neg); PROTEIN,URINE NEGATIVE (Neg); UROBILINOGEN,URINE 0.2 E.U/dL (0.2-1.0)
[2019-01-28 17:30] LABS: UA COLLECTION TYPE FOLEY CATH
[2019-01-28 17:33] LABS: SQUAMOUS EPITHELIAL CELL,UR MODERATE /LPF (FEW); WBC,URINE 30-50 /HPF (0-4)
[2019-01-28 17:34] LABS: WBC CLUMPS,URINE FEW /HPF (NEGATIVE)
[2019-01-28 17:35] LABS: RBC,URINE 0-2 /HPF (0-2)
[2019-01-28 17:36] LABS: BACTERIA,URINE 2+ /HPF (Neg)
[2019-01-28 18:09] LABS: HEMOGLOBIN A1C 6.8 % (4.5-6.2)
[2019-01-28] MEDS: K and/or MAG REPLACEMENT MC SCH (18:27)
[2019-01-28 19:30] VITALS: BP 137/64
[2019-01-28] MEDS: docusate sod 100mg capsule PO SCH (20:00)
[2019-01-28] MEDS: albuterol 2.5 MG/3 ML nebule NEB SCH ×2 (20:00→22:28)
[2019-01-28] MEDS: sucralfate 1gm/10ml UD suspension PO SCH (20:31)
[2019-01-28 22:00] VITALS: BP 144/87
[2019-01-28] MEDS: insulin glargine (Lantus) pen - multi-dose SQ SCH (22:19)
[2019-01-28] MEDS: heparin, porcine 5000 units/ml vial SQ SCH (22:24)
[2019-01-29 03:17] LABS: BASOPHILS % (AUTO) 0.1 % (0-1); EOSINOPHILS % (AUTO) 0 % (0-6); HEMATOCRIT 29.7 % (35.0-45.0); HEMOGLOBIN 9.9 g/dl (12.0-16.0); LYMPHOCYTES # (AUTO) 0.9 X10'3 (1.1-4.8); LYMPHOCYTES % (AUTO) 23.6 % (21-51); MEAN CORPUSCULAR HEMOGLOBIN 28.3 PG (27.0-31.0); MEAN CORPUSCULAR HGB CONC 33.2 g/dL (33.0-36.5); MEAN CORPUSCULAR VOLUME 85.4 FL (78-98); MEAN PLATELET VOLUME 7.7 FL (7.4-10.4); MONOCYTES # (AUTO) 0.2 X10'3 (0-0.9); MONOCYTES % (AUTO) 6.3 % (2-12); NEUTROPHILS # (AUTO) 2.6 X10'3 (1.8-7.7); PLATELET COUNT 205 X10'3 (140-440); RED BLOOD COUNT 3.48 X10'6 (4.20-5.60); RED CELL DISTRIBUTION WIDTH 14.7 % (11.5-14.5); WHITE BLOOD COUNT 3.7 X10'3 (4.5-11.0)
[2019-01-29 03:19] LABS: ALANINE AMINOTRANSFERASE 25 U/L (12-78); ALBUMIN 2.7 G/DL (3.4-5.0); ALBUMIN/GLOBULIN RATIO 0.7 (1.1-1.5); ALKALINE PHOSPHATASE 84 IU/L (46-116); ANION GAP 8 (8-16); ASPARTATE AMINO TRANSFERASE 15 U/L (10-37); BILIRUBIN,TOTAL 0.3 MG/DL (0.1-1.0); BLOOD UREA NITROGEN 13 MG/DL (7-18); BUN/CREATININE RATIO 19.7 (6.6-38.0); CHLORIDE 104 MMOL/L (99-107); CREATININE 0.66 MG/DL (0.40-0.90); GLUCOSE 176 MG/DL (70-104); POTASSIUM 3.1 MMOL/L (3.5-5.1); SODIUM 144 MMOL/L (135-145); TOTAL CARBON DIOXIDE 32.3 MMOL/L (24-32); TOTAL PROTEIN 6.6 G/DL (6.4-8.2); eGFR 86 ML/MIN
[2019-01-29 03:23] LABS: MAGNESIUM 1.2 MG/DL (1.5-2.4)
[2019-01-29] MEDS: potassium Cl 20 mEq SR tablet PO PRN ×4 (05:14→21:44)
[2019-01-29 06:00] VITALS: BP 128/99
--- NOTE | 2019-01-29 06:48 | NUR ---
Patient in room ORTHO 4020B. I have received report from GARY KESSLER and had the opportunity to ask questions and assume patient care.
[2019-01-29] MEDS: K and/or MAG REPLACEMENT MC SCH ×2 (07:58→20:00)
[2019-01-29] MEDS: docusate sod 100mg capsule PO SCH ×2 (08:11→19:45)
[2019-01-29] MEDS: sucralfate 1gm/10ml UD suspension PO SCH ×4 (08:11→21:45)
[2019-01-29] MEDS: heparin, porcine 5000 units/ml vial SQ SCH ×2 (08:12→21:45)
[2019-01-29] MEDS: albuterol 2.5 MG/3 ML nebule NEB SCH ×5 (08:20→23:16)
[2019-01-29] MEDS: insulin Lispro (HumaLOG) vial - multi-dose SQ SCH ×2 (09:36→19:01)
[2019-01-29] MEDS: magnesium Cl slow-release 64mg tablet PO PRN ×2 (09:50→21:44)
--- NOTE | 2019-01-29 10:52 | NUR ---
DM consult: Pt with A1c 6.8, DM education not warranted at this time. Will continue to follow. Addendum: 01/29/19 at [address] Amended: Links added.
[2019-01-29 18:00] VITALS: BP 153/91
[2019-01-29] MEDS: insulin glargine (Lantus) pen - multi-dose SQ SCH (21:47)
[2019-01-29 22:00] VITALS: BP 146/83
[2019-01-30] MEDS: albuterol 2.5 MG/3 ML nebule NEB SCH ×4 (03:15→15:22)
[2019-01-30 06:00] VITALS: BP 171/71
[2019-01-30 06:33] LABS: BASOPHILS % (AUTO) 0.2 % (0-1); EOSINOPHILS # (AUTO) 0.1 X10'3 (0-0.9); EOSINOPHILS % (AUTO) 0.6 % (0-6); HEMATOCRIT 33.4 % (35.0-45.0); LYMPHOCYTES # (AUTO) 1.6 X10'3 (1.1-4.8); LYMPHOCYTES % (AUTO) 17.4 % (21-51); MEAN CORPUSCULAR HEMOGLOBIN 28.2 PG (27.0-31.0); MEAN CORPUSCULAR HGB CONC 32.9 g/dL (33.0-36.5); MEAN CORPUSCULAR VOLUME 85.9 FL (78-98); MEAN PLATELET VOLUME 7.7 FL (7.4-10.4); MONOCYTES # (AUTO) 1.1 X10'3 (0-0.9); MONOCYTES % (AUTO) 11.4 % (2-12); NEUTROPHILS # (AUTO) 6.6 X10'3 (1.8-7.7); NEUTROPHILS % (AUTO) 70.4 % (42-75); PLATELET COUNT 248 X10'3 (140-440); RED BLOOD COUNT 3.89 X10'6 (4.20-5.60); RED CELL DISTRIBUTION WIDTH 14.9 % (11.5-14.5); WHITE BLOOD COUNT 9.4 X10'3 (4.5-11.0)
[2019-01-30 06:41] LABS: ALANINE AMINOTRANSFERASE 24 U/L (12-78); ALBUMIN/GLOBULIN RATIO 0.8 (1.1-1.5); ALKALINE PHOSPHATASE 85 IU/L (46-116); ANION GAP 6 (8-16); ASPARTATE AMINO TRANSFERASE 17 U/L (10-37); BILIRUBIN,TOTAL 0.5 MG/DL (0.1-1.0); BLOOD UREA NITROGEN 15 MG/DL (7-18); BUN/CREATININE RATIO 23.1 (6.6-38.0); CALCIUM 8.1 MG/DL (8.5-10.1); CHLORIDE 105 MMOL/L (99-107); CREATININE 0.65 MG/DL (0.40-0.90); GLUCOSE 120 MG/DL (70-104); MAGNESIUM 1.4 MG/DL (1.5-2.4); POTASSIUM 3.7 MMOL/L (3.5-5.1); SODIUM 143 MMOL/L (135-145); TOTAL CARBON DIOXIDE 32.4 MMOL/L (24-32); eGFR 87 ML/MIN
--- NOTE | 2019-01-30 06:52 | NUR ---
REPORT GIVEN TO SANJEEV RN
[2019-01-30] MEDS ORDERED: CefTRIAXone 2gm/D5W 50ml 50 ML IV SCH (08:00)
[2019-01-30] MEDS: K and/or MAG REPLACEMENT MC SCH (08:00)
[2019-01-30] MEDS: sucralfate 1gm/10ml UD suspension PO SCH ×2 (09:54→11:39)
[2019-01-30] MEDS: heparin, porcine 5000 units/ml vial SQ SCH (09:55)
[2019-01-30] MEDS: docusate sod 100mg capsule PO SCH (09:55)
[2019-01-30 10:45] VITALS: BP 167/74
[2019-01-30] MEDS ORDERED: docusate sod 100mg capsule PO PRN (11:10)
[2019-01-30] MEDS ORDERED: clopidogrel 75mg tablet PO SCH (11:16)
[2019-01-30] MEDS ORDERED: carvedilol 6.25mg tablet PO SCH (11:23)
[2019-01-30] MEDS ORDERED: multivitamins, therapeutics tablet PO SCH (11:24)
[2019-01-30] MEDS ORDERED: lisinopril 10 MG tablet PO SCH (11:25)
[2019-01-30] MEDS ORDERED: albuterol 2.5 MG/3 ML nebule NEB PRN (11:35)
[2019-01-30] MEDS ORDERED: potassium Cl 20 mEq SR tablet PO SCH (11:35)
[2019-01-30] MEDS ORDERED: cloNIDine 0.1 mg tablet PO SCH (11:42)
[2019-01-30] MEDS: hydrALAZINE 25 MG tablet PO SCH ×2 (11:42→16:29)
[2019-01-30] MEDS ORDERED: ferrous sulfate 325mg tablet PO SCH (11:43)
[2019-01-30] MEDS ORDERED: furosemide 20MG tablet PO SCH (12:30)
--- NOTE | 2019-01-30 12:51 | NUR ---
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
[2019-01-30] MEDS ORDERED: AMOX-580 PO (14:07)
--- NOTE | 2019-01-30 15:30 | NUR ---
Patient discharge to son who doesn't drive. iv discontinued patient tolerated well
--- NOTE | 2019-01-30 15:40 | NUR ---
Patient nurse called and stated is was not safe to discharge the patient, she would most likely come back. If we could keep her she is going in on Thursday to talk to her manger regarding patient. Patient is seen by [facility] once a week but calls more frequently. Addendum: 01/30/19 at 1603 by Minal Galvan RN nurse also stated they had to kick the son out, she did not state why.
--- NOTE | 2019-01-30 15:45 | NUR ---
PAGER ID: [phone] MESSAGE: [phone] Ronald Lui The patients HH nurse called and doesn't want her discharged because she is high risk to come back. [facility] case management is trying to place her and would one more midnight. Minal [phone]
--- NOTE | 2019-01-30 15:51 | NUR ---
Spoke with Dr. Chow regarding discharge. She stated there is no reason to keep her, the discharge is already written.
[2019-01-30 16:30] VITALS: BP 128/53
[2019-01-30] MEDS ORDERED: amox tr/potassium clavulanate 875/125mg TAB PO SCH (17:30)
[2019-01-30] MEDS ORDERED: budesonide 0.5mg/2ml UD nebule IH SCH (20:00)
[2019-01-30] MEDS ORDERED: tolterodine 2mg SR capsule (24hr) PO SCH (21:00)
[2019-01-30] MEDS ORDERED: insulin glargine (Lantus) pen - multi-dose SQ SCH (21:00)
[2019-01-30] MEDS ORDERED: atorvastatin 20mg tablet PO SCH (21:00)
[2019-01-31] MEDS ORDERED: non-formulary drug (Fluticasone/Vilanterol (Breo Ellipta 100-25 Mcg INH) 1 PUFF) PO SCH (08:00)
[2019-01-31] MEDS ORDERED: pantoprazole 40mg Tablet.DR PO SCH (08:00)
== END 2019-01-30 16:55 | disposition home health service (06) | DRG 690 ==
LOC: ER 14:01 → ED HOLD 16:59 → ORTHO 4S 19:29
PROVIDERS: ADMIT Internal Medicine; ATTEND Internal Medicine
DX: N39.0 Urinary tract infection, site not specified (principal); E87.6 Hypokalemia; G89.29 Other chronic pain; I11.0 Hypertensive heart disease with heart failure; I25.10 Atherosclerotic heart disease of native coronary artery without angina pectoris; I48.91 Unspecified atrial fibrillation; G47.30 Sleep apnea, unspecified; K21.9 Gastro-esophageal reflux disease without esophagitis; E11.9 Type 2 diabetes mellitus without complications; M19.90 Unspecified osteoarthritis, unspecified site; M54.2 Cervicalgia; I50.9 Heart failure, unspecified; J44.9 Chronic obstructive pulmonary disease, unspecified; M81.0 Age-related osteoporosis without current pathological fracture; Z85.048 Personal history of other malignant neoplasm of rectum, rectosigmoid junction, and anus; Z86.73 Personal history of transient ischemic attack (TIA), and cerebral infarction without residual deficits; Z90.49 Acquired absence of other specified parts of digestive tract; Z90.710 Acquired absence of both cervix and uterus; Z93.3 Colostomy status; Z88.2 Allergy status to sulfonamides; Z88.5 Allergy status to narcotic agent; Z82.5 Family history of asthma and other chronic lower respiratory diseases; Z82.3 Family history of stroke; Z83.3 Family history of diabetes mellitus
CPT/HCPCS: 36415; 71045; 80053; 81001; 82948; 83036; 83605; 83735; 83880; 84484; 85025; 85610; 85730; 87040; 87077; 87081; 87088; 87186; 93005; 93308; 94640; 94760; 96365; 96375; 97116; 97161; 97530; 99285; G0378; J1644; J1815; J1940; J2001; J2930; J3480; J7030